=== PATIENT | male | born 1940 | race Caucasian/White ===

== ENCOUNTER 2019-10-24 12:11 | Emergency (ER) | payer MEDICARE ==
[~2019-10-24] VITALS: Ht 177.8 cm; Wt 73.0 kg
[2019-10-24 12:42] VITALS: BP 114/69
[2019-10-24] MEDS ORDERED: AZIT250T83 PO (12:55)
== END 2019-10-24 13:14 | disposition home or self-care (01) ==
LOC: EDBD 12:12 → ER 12:12
DX: J32.9 Chronic sinusitis, unspecified (principal); F17.200 Nicotine dependence, unspecified, uncomplicated; Z79.899 Other long term (current) drug therapy
CPT/HCPCS: 99283

== ENCOUNTER 2020-02-13 14:24 | Emergency (ER) | payer MEDICARE, OTHER ==
[~2020-02-13] VITALS: Ht 177.8 cm; Wt 72.0 kg
[2020-02-13 15:22] LABS: CLARITY,URINE CLEAR (Clear); COLOR,URINE YELLOW (Yellow); GLUCOSE, URINE NEGATIVE (Neg); KETONES,URINE NEGATIVE (Neg); LEUKOCYTE ESTERASE ,URINE NEGATIVE (Neg); NITRITES, URINE NEGATIVE (Neg); OCCULT BLOOD,URINE NEGATIVE (Neg); PH,URINE 5.5 (4.8-8.0); PROTEIN,URINE NEGATIVE (Neg); UROBILINOGEN,URINE 0.2 E.U/dL (0.2-1.0)
[2020-02-13 15:23] LABS: UA COLLECTION TYPE URINAL
[2020-02-13] MEDS ORDERED: normal saline 1000ML IV soln IVB ONE (15:35)
[2020-02-13 16:04] LABS: BASOPHILS % (AUTO) 0.3 % (0-1); EOSINOPHILS % (AUTO) 0.5 % (0-6); HEMATOCRIT 37.6 % (42.0-52.0); HEMOGLOBIN 12.5 g/dl (14.0-17.9); LYMPHOCYTES # (AUTO) 1.5 X10'3 (1.1-4.8); LYMPHOCYTES % (AUTO) 21.1 % (21-51); MEAN CORPUSCULAR HEMOGLOBIN 30.5 PG (27.0-31.0); MEAN CORPUSCULAR HGB CONC 33.4 g/dL (33.0-36.5); MEAN CORPUSCULAR VOLUME 91.5 FL (78-98); MEAN PLATELET VOLUME 7.3 FL (7.4-10.4); MONOCYTES # (AUTO) 0.8 X10'3 (0-0.9); MONOCYTES % (AUTO) 11.8 % (2-12); NEUTROPHILS # (AUTO) 4.6 X10'3 (1.8-7.7); NEUTROPHILS % (AUTO) 66.3 % (42-75); PLATELET COUNT 357 X10'3 (140-440); RED BLOOD COUNT 4.11 X10'6 (4.70-6.10); RED CELL DISTRIBUTION WIDTH 17.1 % (11.5-14.5); WHITE BLOOD COUNT 6.9 X10'3 (4.5-11.0)
[2020-02-13 16:19] LABS: ALANINE AMINOTRANSFERASE 23 U/L (12-78); ALBUMIN 2.5 G/DL (3.4-5.0); ALBUMIN/GLOBULIN RATIO 0.7 (1.1-1.5); ALKALINE PHOSPHATASE 155 IU/L (46-116); ASPARTATE AMINO TRANSFERASE 20 U/L (10-37); BILIRUBIN,TOTAL 0.2 MG/DL (0.1-1.0); BLOOD UREA NITROGEN 18 MG/DL (7-18); CALCIUM 7.9 MG/DL (8.5-10.1); CHLORIDE 112 MMOL/L (99-107); GLUCOSE 78 MG/DL (70-104); LIPASE < 50 U/L (73-393); POTASSIUM 3.4 MMOL/L (3.5-5.1); TOTAL CARBON DIOXIDE 22.8 MMOL/L (24-32); TOTAL PROTEIN 5.9 G/DL (6.4-8.2)
[2020-02-13 16:20] LABS: BUN/CREATININE RATIO 11.8 (5.4-32.0); CREATININE 1.53 MG/DL (0.60-1.10); eGFR 44 ML/MIN
[2020-02-13 16:27] LABS: ANION GAP 11 (8-16); SODIUM 146 MMOL/L (135-145)
[2020-02-13 17:16] VITALS: BP 138/82
== END 2020-02-13 17:13 | disposition home or self-care (01) ==
LOC: ER 14:25
DX: S39.012A Strain of muscle, fascia and tendon of lower back, initial encounter (principal); G89.29 Other chronic pain; X58.XXXA Exposure to other specified factors, initial encounter; Y93.89 Activity, other specified; Y92.89 Other specified places as the place of occurrence of the external cause; Y99.8 Other external cause status
CPT/HCPCS: 36415; 74176; 80053; 81003; 83605; 83690; 85025; 99284; J7030; 99283

== ENCOUNTER 2020-05-21 14:07 | Emergency (ER) | payer MEDICARE, OTHER ==
[~2020-05-21] VITALS: Ht 177.8 cm; Wt 71.4 kg
--- NOTE | 2020-05-21 14:45 | NUR ---
PT IS RESTING QUIETLY ON GURNEY, WAITING TO BE EVALUATED BY PROVIDER, PT HAS BEEN TAKING NORCO 10MG TID, HAS BEEN ON NORCO FOR 10 YEARS FOR CHRONIC PAIN OF BACK AND HERNIAS, STOPPED TAKING NORCO 10DAYS AGO "I NEEDED TO STOP...I FEEL TERRIBLE NOW", PT TALKED WITH PMD "BUT DR BURR COULD NOT HELP ME", HAS APPT WITH PAIN MANAGEMENT PROVIDER NEXT WEEK, PT C/O FEELING DEPRESSED AND LETHARGIC
[2020-05-21] MEDS ORDERED: buprenorphine/naloxone 8MG-2MG SUBlingual film SL STA (14:59)
--- NOTE | 2020-05-21 15:47 | NUR ---
pt is resting quietly on gurney
--- NOTE | 2020-05-21 16:14 | NUR ---
Roxanne MENA AT BEDSIDE.
[2020-05-21] MEDS ORDERED: buprenorphine/naloxone 8mg/2mg SL tablet SL PRN (16:15)
[2020-05-21] MEDS ORDERED: buprenorphine/naloxone 8MG-2MG SUBlingual film SL PRN (16:15)
[2020-05-21 16:55] VITALS: BP 147/90
== END 2020-05-21 16:53 | disposition home or self-care (01) ==
LOC: ER 14:08
DX: F15.93 Other stimulant use, unspecified with withdrawal (principal); R68.83 Chills (without fever); G89.29 Other chronic pain; F32.9 Major depressive disorder, single episode, unspecified
CPT/HCPCS: 99283

== ENCOUNTER 2020-05-31 18:00 | Emergency (ER) | payer MEDICARE ==
[~2020-05-31] VITALS: Ht 177.8 cm; Wt 75.0 kg
[2020-05-31] MEDS ORDERED: buprenorphine/naloxone 8MG-2MG SUBlingual film SL STA (20:18)
[2020-05-31 20:30] VITALS: BP 145/84
== END 2020-05-31 20:32 | disposition home or self-care (01) ==
LOC: ER 18:02
DX: F11.23 Opioid dependence with withdrawal (principal); G89.29 Other chronic pain
CPT/HCPCS: 99283

== ENCOUNTER 2020-09-01 18:53 | Inpatient (IN) | payer MEDICARE ==
[~2020-09-01] VITALS: Ht 177.8 cm; Wt 62.5 kg
[2020-09-01] MEDS ORDERED: normal saline 1000ML IV soln IV ONE (19:30)
[2020-09-01] MEDS ORDERED: morphine 4 MG/ML inj SYRINge IV ONE (19:35)
[2020-09-01] MEDS ORDERED: ondansetron/PF 4mg/2ml inj IV ONE (19:35)
[2020-09-01 19:45] LABS: BASOPHILS # (AUTO) 0.1 X10'3 (0-0.2); BASOPHILS % (AUTO) 0.3 % (0-1); EOSINOPHILS % (AUTO) 0.1 % (0-6); HEMATOCRIT 31.6 % (42.0-52.0); HEMOGLOBIN 10.4 g/dl (14.0-17.9); LYMPHOCYTES # (AUTO) 0.3 X10'3 (1.1-4.8); LYMPHOCYTES % (AUTO) 1.1 % (21-51); MEAN CORPUSCULAR HEMOGLOBIN 29.4 PG (27.0-31.0); MEAN CORPUSCULAR HGB CONC 32.7 g/dL (33.0-36.5); MEAN CORPUSCULAR VOLUME 89.9 FL (78-98); MEAN PLATELET VOLUME 7.9 FL (7.4-10.4); MONOCYTES # (AUTO) 0.8 X10'3 (0-0.9); MONOCYTES % (AUTO) 2.6 % (2-12); NEUTROPHILS # (AUTO) 28.6 X10'3 (1.8-7.7); NEUTROPHILS % (AUTO) 95.9 % (42-75); PLATELET COUNT 354 X10'3 (140-440); RED BLOOD COUNT 3.52 X10'6 (4.70-6.10); RED CELL DISTRIBUTION WIDTH 17.8 % (11.5-14.5)
[2020-09-01 19:53] LABS: WHITE BLOOD COUNT 29.8 X10'3 (4.5-11.0)
[2020-09-01] MEDS ORDERED: piperacillin/tazo 3.375gm/50ml 50 ML IV ONE (19:55)
[2020-09-01] MEDS ORDERED: vancomycin/NS 1 GM ADD-VANTAGE 250 ML IV ONE (19:55)
[2020-09-01 19:59] LABS: ALANINE AMINOTRANSFERASE 56 U/L (12-78); ALBUMIN 1.7 G/DL (3.4-5.0); ALBUMIN/GLOBULIN RATIO 0.5 (1.1-1.5); ALKALINE PHOSPHATASE 87 IU/L (46-116); ANION GAP 21 (8-16); ASPARTATE AMINO TRANSFERASE 54 U/L (10-37); BILIRUBIN,TOTAL 0.4 MG/DL (0.1-1.0); BLOOD UREA NITROGEN 50 MG/DL (7-18); BUN/CREATININE RATIO 12.8 (5.4-32.0); CHLORIDE 108 MMOL/L (99-107); CREATININE 3.91 MG/DL (0.60-1.10); GLUCOSE 122 MG/DL (70-104); POTASSIUM 3.3 MMOL/L (3.5-5.1); SODIUM 142 MMOL/L (135-145); TOTAL PROTEIN 5.4 G/DL (6.4-8.2); eGFR 15 ML/MIN
--- NOTE | 2020-09-01 20:05 | NUR ---
franko: [phone]
[2020-09-01 20:13] LABS: CALCIUM 5.1 MG/DL (8.5-10.1); TOTAL CARBON DIOXIDE 12.7 MMOL/L (24-32)
[2020-09-01 20:41] LABS: CLARITY,URINE CLEAR (Clear); COLOR,URINE YELLOW (Yellow); GLUCOSE, URINE NEGATIVE (Neg); KETONES,URINE NEGATIVE (Neg); LEUKOCYTE ESTERASE ,URINE TRACE (Neg); NITRITES, URINE NEGATIVE (Neg); OCCULT BLOOD,URINE LARGE (Neg); PH,URINE 5.5 (4.8-8.0); PROTEIN,URINE 100 mg/dl (Neg); UROBILINOGEN,URINE 0.2 E.U/dL (0.2-1.0)
[2020-09-01 20:45] LABS: UA COLLECTION TYPE CLN CATCH MIDSTREAM
[2020-09-01] MEDS ORDERED: temazepam 15mg capsule PO PRN (21:00)
[2020-09-01 21:11] LABS: BACTERIA,URINE 3+ /HPF (Neg); CAL OXALATE CRYSTALS FEW /HPF (NEGATIVE); MUCUS STRANDS MODERATE /LPF (Neg); RBC,URINE TNTC /HPF (0-2); SQUAMOUS EPITHELIAL CELL,UR FEW /LPF (FEW)
[2020-09-01 21:12] LABS: AMORPHOUS URATES 1+
[2020-09-01 21:29] LABS: TOTAL CELLS COUNTED 100
[2020-09-01 21:30] LABS: LARGE PLATELETS FEW; PLATELET ESTIMATE NORMAL
[2020-09-01 21:31] LABS: TOXIC GRANULATION 1+; TOXIC VACUOLATION 1+
[2020-09-01 21:33] LABS: ANISOCYTOSIS 1+
[2020-09-01 21:34] LABS: BURR CELLS 1+
--- NOTE | 2020-09-01 22:02 | NUR ---
RAO BRENNER ([facility] [place]) [phone]
[2020-09-01] MEDS ORDERED: ondansetron/PF 4mg/2ml inj IV PRN ×2 (22:15→23:25)
[2020-09-01] MEDS ORDERED: labetalol 20mg/4ml (5mg/ml) syringe IV PRN (22:15)
[2020-09-01] MEDS ORDERED: ringers solution, lacted 1,000 ML IV SCH ×2 (22:15→23:25)
[2020-09-01] MEDS ORDERED: hydrALAZINE 20mg/ml inj. IV PRN (22:15)
[2020-09-01] MEDS ORDERED: morphine 4 MG/ML inj SYRINge IV PRN (22:15)
[2020-09-01] MEDS ORDERED: morphine 2 MG/ML inj. syringe IV PRN (22:15)
[2020-09-01] MEDS ORDERED: fentaNYL/PF 50MCG/1 ML 2ML syringe IV PRN ×2 (22:15)
[2020-09-01] MEDS ORDERED: HYDROcodone/acetaminophen 10/325mg tab PO PRN (22:20)
[2020-09-01] MEDS ORDERED: acetaminophen 325mg tablet PO PRN ×2 (22:20)
[2020-09-01] MEDS ORDERED: magnesium Cl slow-release 64mg tablet PO PRN (22:20)
[2020-09-01] MEDS ORDERED: mag hydrox/Alum hydrox/simeth 30ml oral suspension PO PRN (22:20)
[2020-09-01] MEDS ORDERED: metoclopramide 5 mg/ml inj IV PRN (22:20)
[2020-09-01] MEDS ORDERED: acetaminophen 650mg rectal suppository RC PRN (22:20)
[2020-09-01] MEDS ORDERED: HYDROmorphone inj. 0.5 MG/0.5 ML DISP.SYRIN IV PRN (22:20)
[2020-09-01] MEDS ORDERED: potassium Cl 20 mEq SR tablet PO PRN ×2 (22:20)
[2020-09-01] MEDS ORDERED: magnesium hydroxide 30ml (MOM) UD suspension PO PRN (22:20)
[2020-09-01] MEDS ORDERED: HYDROcodone/acetaminophen 5mg/325mg tablet PO PRN (22:20)
[2020-09-01] MEDS ORDERED: magnesium 4gm in 100ml NS 100 ML IV PRN (22:20)
[2020-09-01] MEDS ORDERED: bisacodyl 10mg suppository rectal RC PRN (22:20)
[2020-09-01] MEDS ORDERED: potassium CL 10mEq/100ml bag 100 ML IV PRN ×2 (22:20)
[2020-09-01 22:26] LABS: PARTIAL THROMBOPLASTIN TIME 36 SECONDS (22-32)
[2020-09-01] MEDS ORDERED: ceFAZolin 1000mg inj ONE (22:36)
[2020-09-01] MEDS ORDERED: PANT-47 PO (22:42)
[2020-09-01] MEDS ORDERED: [UNRECOGNIZED DRUG - OTHER] SL (22:42)
[2020-09-01] MEDS ORDERED: AMLO2.5T5 PO (22:42)
[2020-09-01] MEDS ORDERED: TRAZ-256 PO (22:42)
[2020-09-01] MEDS ORDERED: CALC0.2511 PO (22:42)
[2020-09-01] MEDS ORDERED: CHOL100062 PO (22:42)
[2020-09-01] MEDS ORDERED: NORepinephrine 1 mg/ml inj IV ONE (23:11)
[2020-09-02] VITALS (30 sets, daily range): BP systolic 88–127; BP diastolic 47–61
--- NOTE | 2020-09-02 00:05 | NUR ---
Received from OR via BED , accompanied by Anesthesiologist DR APPLE and report given by Anesthesiolgist. PATIENT SEDATED ON VENT 22CM AT TEETH SEE RT NOTES FOR SETTINGS, V/S WNL, NEUROVASCULAR CHECKS INTACT, PACKING 4X4 AND SUPPORT SHORTS TO SCROTUM AREA CDI, COLOSTOMY W/NO S/S OF COMPLICATIONS, F/C DRAINING DARK YELLOW BRN URINE, ART LINE TO RUE, CL TO RIGHT NECK, CVP 12, 20G PIV TO LUE, 18G PIV TO LUE, RESTRAINTS TO BUE SECURE, INSURANCE EXAMINING CLERK NOTIFIED, CHEST XRY ORDERED AND ABG, OG TUBE TO LWS INTERMENTENT WITH MINIMAL OUTPUT, PATIENT SHOWS NO S/S OF PAIN AT THIS TIME. PATIENT RECOVERED IN 2041
[2020-09-02] MEDS: FENTANYL-0.9 % NACL/PF 100 ML IV PRN (01:17)
[2020-09-02] MEDS: midazolam 100mg in NS 100ml 100 ML IV SCH (01:17)
[2020-09-02] MEDS: NORepinephrine 8mg/ 250ml NS 250 ML IV PRN ×7 (01:18→21:55)
--- NOTE | 2020-09-02 01:25 | NUR ---
PATIENT SEDATED ON VENT 22CM AT TEETH SEE RT NOTES FOR SETTINGS, V/S WNL, NEUROVASCULAR CHECKS INTACT, PACKING 4X4 AND SUPPORT SHORTS TO SCROTUM AREA CDI, COLOSTOMY W/NO S/S OF COMPLICATIONS, F/C DRAINING DARK YELLOW BRN URINE, ART LINE TO RUE, CL TO RIGHT NECK, CVP 12, 20G PIV TO LUE, 18G PIV TO LUE, RESTRAINTS TO BUE SECURE, , CHEST XRY DONE AND DR WALKER HAS REVIEWED RESULTS W/ NO NEW ORDERS AND ABG COMPLETED, OG TUBE TO LWS INTERMENTENT WITH MINIMAL OUTPUT, PATIENT SHOWS NO S/S OF PAIN AT THIS TIME. PATIENT RECOVERED IN 2041, BELONGINGS WITH PATIENT IN ROOM, FENT AND VERSED GTT FOR SEDATION AT STANDARD SETTINGS AND LEVOPHED AT 0.3MCG/KG/MIN. PATIENT CONNECTED TO MONITORS AND REPORT GIVEN TO TRUCK OPERATOR WHO HAS TAKEN OVER PATIENT CARE.
[2020-09-02 01:30] LABS: ABG BASE EXCESS -17.4 mmol/L (-2.0-2.0); ABG HCO3 11.8 mmol/L (22.0-26.0); ABG OXYGEN SATURATION 95.2 % (94-97); ABG PCO2 (T) 40.9 mmHg (35.0-48.0); ABG PO2 (T) 295.6 mmHg (75.0-100.0); FMetHb 0.1 % (0.0-1.5); FO2Hb 95.1 % (94-97); PATIENT TEMPERATURE 36.3; PEEP 5 cm H2O; RESPIRATORY RATE 12 b/min; TIDAL VOLUME 500 mL; TOTAL HEMOGLOBIN 9.3 G/dl (14.0-18.0)
[2020-09-02 02:38] LABS: BASOPHILS # (AUTO) 0.2 X10'3 (0-0.2); BASOPHILS % (AUTO) 0.6 % (0-1); EOSINOPHILS % (AUTO) 0.1 % (0-6); HEMATOCRIT 27.2 % (42.0-52.0); HEMOGLOBIN 8.8 g/dl (14.0-17.9); LYMPHOCYTES # (AUTO) 0.3 X10'3 (1.1-4.8); LYMPHOCYTES % (AUTO) 0.9 % (21-51); MEAN CORPUSCULAR HEMOGLOBIN 29.4 PG (27.0-31.0); MEAN CORPUSCULAR HGB CONC 32.4 g/dL (33.0-36.5); MEAN CORPUSCULAR VOLUME 90.8 FL (78-98); MEAN PLATELET VOLUME 7.7 FL (7.4-10.4); MONOCYTES # (AUTO) 1.5 X10'3 (0-0.9); MONOCYTES % (AUTO) 5.4 % (2-12); NEUTROPHILS # (AUTO) 25.6 X10'3 (1.8-7.7); PLATELET COUNT 301 X10'3 (140-440); RED BLOOD COUNT 2.99 X10'6 (4.70-6.10)
[2020-09-02 02:39] LABS: WHITE BLOOD COUNT 27.6 X10'3 (4.5-11.0)
[2020-09-02 02:44] LABS: ALANINE AMINOTRANSFERASE 53 U/L (12-78); ALBUMIN 1.7 G/DL (3.4-5.0); ALBUMIN/GLOBULIN RATIO 0.6 (1.1-1.5); ALKALINE PHOSPHATASE 68 IU/L (46-116); ANION GAP 18 (8-16); ASPARTATE AMINO TRANSFERASE 61 U/L (10-37); BILIRUBIN,TOTAL 0.5 MG/DL (0.1-1.0); BLOOD UREA NITROGEN 48 MG/DL (7-18); BUN/CREATININE RATIO 14.1 (5.4-32.0); CHLORIDE 115 MMOL/L (99-107); GLUCOSE 123 MG/DL (70-104); POTASSIUM 3.2 MMOL/L (3.5-5.1); SODIUM 148 MMOL/L (135-145); TOTAL PROTEIN 4.7 G/DL (6.4-8.2); eGFR 18 ML/MIN
[2020-09-02 02:48] LABS: CALCIUM 5.5 MG/DL (8.5-10.1); MAGNESIUM 0.5 MG/DL (1.5-2.4); TOTAL CARBON DIOXIDE 14.6 MMOL/L (24-32)
[2020-09-02] MEDS ORDERED: calcium chloride 100 MG/1 ML inj IV ONE ×4 (03:00→10:35)
[2020-09-02] MEDS: magnesium 2GM in 50ml NS 50 ML IV PRN ×2 (03:21→10:41)
[2020-09-02] MEDS ORDERED: potassium Cl 20 mEq/100mL bag IV ONE (03:40)
[2020-09-02 05:15] LABS: ABG HCO3 12.3 mmol/L (22.0-26.0); ABG OXYGEN SATURATION 93.4 % (94-97); ABG PCO2 (T) 37.8 mmHg (35.0-48.0); ABG PO2 (T) 120.3 mmHg (75.0-100.0); FCOHb 0.1 % (0.0-3.9); FMetHb 0.1 % (0.0-1.5); FO2Hb 93.2 % (94-97); PATIENT TEMPERATURE 36.5; PEEP 5 cm H2O; RESPIRATORY RATE 16 b/min; TIDAL VOLUME 500 mL; TOTAL HEMOGLOBIN 9.1 G/dl (14.0-18.0)
[2020-09-02] MEDS: normal saline 1000ml 1,000 ML IV SCH ×3 (06:52→18:20)
[2020-09-02] MEDS ORDERED: enoxaparin 30mg/0.3ml syringe SUBCUT SCH (08:00)
[2020-09-02] MEDS: K and/or MAG REPLACEMENT MC SCH ×2 (08:00→20:00)
[2020-09-02 08:42] LABS: ANISOCYTOSIS 1+; BURR CELLS 2+; PLATELET ESTIMATE NORMAL; TOTAL CELLS COUNTED 100; TOXIC GRANULATION 2+; TOXIC VACUOLATION 1+
[2020-09-02] MEDS ORDERED: vancomycin/NS 1 GM ADD-VANTAGE 250 ML IV PRN (08:50)
[2020-09-02] MEDS: piperacillin/tazo 3.375gm/50ml 50 ML IV SCH ×2 (09:10→20:24)
[2020-09-02] MEDS: albumin (human) 25% 100 ML IV solution IV SCH ×2 (11:05→17:46)
[2020-09-02] MEDS: clindamycin 600mg/D5W 50ml 50 ML IV SCH ×2 (11:34→17:03)
[2020-09-02] MEDS: hydrocortisone sod succ/PF 100mg/2ml inj. IV SCH ×2 (11:34→17:03)
[2020-09-02 11:37] LABS: PHOSPHORUS 5.5 MG/DL (2.3-4.5)
[2020-09-02] MEDS ORDERED: BUPR1TAB45 SL (11:45)
--- NOTE | 2020-09-02 11:52 | NUR ---
Retrieved from pts EMR: Pt is a 79-year-old male who presented with testicular pain. Pt apparently had right groin cellulitis w/ necrotizing fasciitis. Pt went to surgery with Dr. Lux on 09/02/20 where perianal and perineal tissue was debrided and pt had diverting ileostomy placed. Pt has history of GERD, anxiety and cigar smoking. Pt labs show high WBC at 27.6, low HGB at 8.8, low HCT at 27.2, high procalcitonin 1.62, very low albumin 1.7, and very reduced kidney function with EGFR of 18. Wound care consulted for: New stoma Wound care bedside to see pt. Pt is intubated and sedated at this time. On examination ileostomy appears to LLQ. There is some xeroform around the side, unsure of the purpose of this application. The ostomy itself is very edematous and is pink in color. There is serosanguinous drainage at this time. Addendum: 09/02/20 at 1153 by Ingrid Mitchell RN Amended: Links added.
--- NOTE | 2020-09-02 12:28 | NUR ---
Initial: Pt intubated s/p OR for necrotizing perineal I&D and diverting Ileostomy per EMR. NPO at this time. Ca 5.5 and Mg 0.5 receiving replacements w/ 200cc 25% ALB to start Q8 per director of group sales. Will monitor for nutrition support needs post-op; EN recs below in case prolonged intubation; using IBW pending scaled wt this admit. Will continue to monitor. Rec: 1. IF TF; Vital High Protein at 85ml/hr goal 2. IF TF; water flush 200ml Q4; Yao BID for wound healing needs 3. IF TF; PALB Q M/; daily wts 4. bowel care per rx; monitor for opioid antagonist needs post-op 5. daily wts Addendum: 09/02/20 at [address] Amended: Links added.
[2020-09-02] MEDS: Potassium Cl inj 40 MEQ in sodium chloride 0.45% 1,000 ML IV SCH ×2 (12:58→20:24)
[2020-09-02] MEDS ORDERED: sodium bicarbonate (8.4%) 1 mEq/ml syringe ONE (13:24)
[2020-09-02 13:25] LABS: ABG BASE EXCESS -19.2 mmol/L (-2.0-2.0); ABG HCO3 9.3 mmol/L (22.0-26.0); ABG OXYGEN SATURATION 92.4 % (94-97); ABG PCO2 (T) 32.4 mmHg (35.0-48.0); ABG PO2 (T) 97.3 mmHg (75.0-100.0); FCOHb 0.1 % (0.0-3.9); FMetHb 0.1 % (0.0-1.5); FO2Hb 92.2 % (94-97); PEEP 5 cm H2O; RESPIRATORY RATE 20 b/min; TIDAL VOLUME 500 mL; TOTAL HEMOGLOBIN 8.5 G/dl (14.0-18.0)
[2020-09-02 13:28] LABS: BASOPHILS # (AUTO) 0.1 X10'3 (0-0.2); BASOPHILS % (AUTO) 0.2 % (0-1); EOSINOPHILS % (AUTO) 0 % (0-6); HEMATOCRIT 25.8 % (42.0-52.0); HEMOGLOBIN 8.1 g/dl (14.0-17.9); LYMPHOCYTES # (AUTO) 0.2 X10'3 (1.1-4.8); LYMPHOCYTES % (AUTO) 0.9 % (21-51); MEAN CORPUSCULAR HEMOGLOBIN 28.8 PG (27.0-31.0); MEAN CORPUSCULAR HGB CONC 31.4 g/dL (33.0-36.5); MEAN CORPUSCULAR VOLUME 91.8 FL (78-98); MEAN PLATELET VOLUME 7.6 FL (7.4-10.4); MONOCYTES # (AUTO) 0.9 X10'3 (0-0.9); MONOCYTES % (AUTO) 3.4 % (2-12); NEUTROPHILS # (AUTO) 24.8 X10'3 (1.8-7.7); NEUTROPHILS % (AUTO) 95.5 % (42-75); PLATELET COUNT 279 X10'3 (140-440); RED BLOOD COUNT 2.81 X10'6 (4.70-6.10); RED CELL DISTRIBUTION WIDTH 18.8 % (11.5-14.5)
[2020-09-02 13:29] LABS: PARTIAL THROMBOPLASTIN TIME 59 SECONDS (22-32)
[2020-09-02 13:31] LABS: ALANINE AMINOTRANSFERASE 49 U/L (12-78); ALBUMIN 2.5 G/DL (3.4-5.0); ALKALINE PHOSPHATASE 68 IU/L (46-116); ASPARTATE AMINO TRANSFERASE 47 U/L (10-37); BILIRUBIN,TOTAL 0.6 MG/DL (0.1-1.0); BLOOD UREA NITROGEN 54 MG/DL (7-18); BUN/CREATININE RATIO 13.6 (5.4-32.0); CALCIUM 7.3 MG/DL (8.5-10.1); CREATININE 3.97 MG/DL (0.60-1.10); GLUCOSE 125 MG/DL (70-104); MAGNESIUM 1.3 MG/DL (1.5-2.4); TOTAL PROTEIN 5.1 G/DL (6.4-8.2); eGFR 15 ML/MIN
[2020-09-02 13:36] LABS: ANION GAP 20 (8-16); CHLORIDE 116 MMOL/L (99-107); POTASSIUM 3.8 MMOL/L (3.5-5.1); SODIUM 148 MMOL/L (135-145)
[2020-09-02 13:43] LABS: TOTAL CARBON DIOXIDE 11.9 MMOL/L (24-32)
[2020-09-02] MEDS ORDERED: sodium bicarbonate (8.4%) inj. 1 MEQ/ML ML ONE ×3 (14:46→15:09)
[2020-09-02] MEDS ORDERED: rocuronium 10mg/ml inj IV ONE (14:46)
[2020-09-02 14:55] LABS: ABG BASE EXCESS -15.6 mmol/L (-2.0-2.0); ABG HCO3 11.8 mmol/L (22.0-26.0); ABG OXYGEN SATURATION 95.1 % (94-97); ABG PCO2 (T) 33.3 mmHg (35.0-48.0); FMetHb 0.1 % (0.0-1.5); PATIENT TEMPERATURE 36.5; TOTAL HEMOGLOBIN 8.2 G/dl (14.0-18.0)
--- NOTE | 2020-09-02 16:36 | NUR ---
I have reviewed and agree with all medications administered and interventions performed by [facility] Student MARK GODWIN Addendum: 09/02/20 at 1637 by Odette Santana RT Amended: Links added.
--- NOTE | 2020-09-02 16:42 | NUR ---
Called to report run of VTach to Dr Fontanez. states he will call me right back
[2020-09-02] MEDS ORDERED: sodium chloride 0.45% 1,000 ML IV ONE (16:50)
[2020-09-02] MEDS: potassium Cl 20 mEq/100mL bag IV SCH ×2 (17:03→17:50)
[2020-09-02] MEDS: lactobacillus rhamnosus 10,000 MMU CELLS/CAPSULE PO SCH (20:24)
[2020-09-02 21:55] LABS: BASOPHILS % (AUTO) 0.1 % (0-1); EOSINOPHILS % (AUTO) 0.1 % (0-6); HEMATOCRIT 22.2 % (42.0-52.0); HEMOGLOBIN 7.3 g/dl (14.0-17.9); LYMPHOCYTES # (AUTO) 0.5 X10'3 (1.1-4.8); LYMPHOCYTES % (AUTO) 2.1 % (21-51); MEAN CORPUSCULAR HGB CONC 32.7 g/dL (33.0-36.5); MEAN CORPUSCULAR VOLUME 91.6 FL (78-98); MEAN PLATELET VOLUME 7.6 FL (7.4-10.4); MONOCYTES # (AUTO) 0.6 X10'3 (0-0.9); MONOCYTES % (AUTO) 2.5 % (2-12); NEUTROPHILS % (AUTO) 95.2 % (42-75); PLATELET COUNT 238 X10'3 (140-440); RED BLOOD COUNT 2.43 X10'6 (4.70-6.10); RED CELL DISTRIBUTION WIDTH 18.5 % (11.5-14.5); WHITE BLOOD COUNT 22.1 X10'3 (4.5-11.0)
[2020-09-02 22:09] LABS: ALANINE AMINOTRANSFERASE 45 U/L (12-78); ALBUMIN 2.8 G/DL (3.4-5.0); ALBUMIN/GLOBULIN RATIO 1.3 (1.1-1.5); ALKALINE PHOSPHATASE 75 IU/L (46-116); ANION GAP 23 (8-16); ASPARTATE AMINO TRANSFERASE 47 U/L (10-37); BLOOD UREA NITROGEN 55 MG/DL (7-18); BUN/CREATININE RATIO 13.3 (5.4-32.0); CALCIUM 6.1 MG/DL (8.5-10.1); CHLORIDE 115 MMOL/L (99-107); CREATININE 4.12 MG/DL (0.60-1.10); GLUCOSE 114 MG/DL (70-104); POTASSIUM 4.3 MMOL/L (3.5-5.1); SODIUM 149 MMOL/L (135-145); eGFR 14 ML/MIN
[2020-09-02 22:11] LABS: TOTAL CARBON DIOXIDE 11.3 MMOL/L (24-32)
[2020-09-02 22:43] LABS: MAGNESIUM 1.2 MG/DL (1.5-2.4)
[2020-09-02 22:51] LABS: ABG BASE EXCESS -17.4 mmol/L (-2.0-2.0); ABG HCO3 8.6 mmol/L (22.0-26.0); ABG OXYGEN SATURATION 94.1 % (94-97); ABG PCO2 (T) 20.6 mmHg (35.0-48.0); ABG PO2 (T) 124.2 mmHg (75.0-100.0); FCOHb 0.1 % (0.0-3.9); FMetHb 0.1 % (0.0-1.5); FO2Hb 93.9 % (94-97); PATIENT TEMPERATURE 36.5; PEEP 5 cm H2O; RESPIRATORY RATE 20 b/min; TIDAL VOLUME 650 mL; TOTAL HEMOGLOBIN 7.5 G/dl (14.0-18.0)
[2020-09-03] VITALS (29 sets, daily range): BP systolic 13–131; BP diastolic 46–62
[2020-09-03] MEDS: clindamycin 600mg/D5W 50ml 50 ML IV SCH ×2 (00:24→07:18)
[2020-09-03] MEDS: hydrocortisone sod succ/PF 100mg/2ml inj. IV SCH ×3 (00:24→18:15)
[2020-09-03] MEDS: albumin (human) 25% 100 ML IV solution IV SCH ×2 (00:25→07:55)
[2020-09-03] MEDS: VANCOMYCIN LEVEL IV SCH (03:00)
[2020-09-03 03:14] LABS: BASOPHILS % (AUTO) 0.1 % (0-1); EOSINOPHILS % (AUTO) 0.1 % (0-6); LYMPHOCYTES # (AUTO) 0.3 X10'3 (1.1-4.8); LYMPHOCYTES % (AUTO) 1.4 % (21-51); MEAN CORPUSCULAR HEMOGLOBIN 29.2 PG (27.0-31.0); MEAN CORPUSCULAR HGB CONC 32.1 g/dL (33.0-36.5); MEAN CORPUSCULAR VOLUME 90.9 FL (78-98); MEAN PLATELET VOLUME 7.6 FL (7.4-10.4); MONOCYTES # (AUTO) 0.5 X10'3 (0-0.9); MONOCYTES % (AUTO) 2.5 % (2-12); NEUTROPHILS % (AUTO) 95.9 % (42-75); PLATELET COUNT 204 X10'3 (140-440); RED BLOOD COUNT 2.34 X10'6 (4.70-6.10); RED CELL DISTRIBUTION WIDTH 18.1 % (11.5-14.5); WHITE BLOOD COUNT 19.8 X10'3 (4.5-11.0)
[2020-09-03 03:25] LABS: HEMATOCRIT 21.3 % (42.0-52.0); HEMOGLOBIN 6.8 g/dl (14.0-17.9)
[2020-09-03 03:27] LABS: ALANINE AMINOTRANSFERASE 41 U/L (12-78); ALBUMIN 3.2 G/DL (3.4-5.0); ALBUMIN/GLOBULIN RATIO 1.5 (1.1-1.5); ALKALINE PHOSPHATASE 73 IU/L (46-116); ANION GAP 24 (8-16); ASPARTATE AMINO TRANSFERASE 41 U/L (10-37); BILIRUBIN,TOTAL 0.9 MG/DL (0.1-1.0); BLOOD UREA NITROGEN 57 MG/DL (7-18); BUN/CREATININE RATIO 12.9 (5.4-32.0); CHLORIDE 111 MMOL/L (99-107); CREATININE 4.42 MG/DL (0.60-1.10); GLUCOSE 125 MG/DL (70-104); PHOSPHORUS 6.6 MG/DL (2.3-4.5); POTASSIUM 4.2 MMOL/L (3.5-5.1); SODIUM 145 MMOL/L (135-145); TOTAL PROTEIN 5.3 G/DL (6.4-8.2); VANCOMYCIN,RANDOM 6.3 UG/ML; eGFR 13 ML/MIN
[2020-09-03 03:34] LABS: CALCIUM 5.6 MG/DL (8.5-10.1); TOTAL CARBON DIOXIDE 10.1 MMOL/L (24-32)
[2020-09-03] MEDS ORDERED: calcium chloride inj. 1,000 MG in normal saline 100ml IV soln 100 ML IV ONE (03:45)
[2020-09-03 03:56] LABS: ABG BASE EXCESS -18.5 mmol/L (-2.0-2.0); ABG HCO3 7.9 mmol/L (22.0-26.0); ABG OXYGEN SATURATION 94.1 % (94-97); ABG PCO2 (T) 20.4 mmHg (35.0-48.0); ABG PO2 (T) 124.2 mmHg (75.0-100.0); FCOHb 0.3 % (0.0-3.9); FO2Hb 93.8 % (94-97); PATIENT TEMPERATURE 36.5; PEEP 5 cm H2O; RESPIRATORY RATE 20 b/min; TIDAL VOLUME 650 mL; TOTAL HEMOGLOBIN 6.8 G/dl (14.0-18.0)
[2020-09-03] MEDS: normal saline 1000ml 1,000 ML IV SCH (04:20)
[2020-09-03] MEDS: FENTANYL-0.9 % NACL/PF 100 ML IV PRN ×2 (04:58→23:39)
[2020-09-03] MEDS: midazolam 100mg in NS 100ml 100 ML IV SCH (04:59)
[2020-09-03] MEDS: Potassium Cl inj 40 MEQ in sodium chloride 0.45% 1,000 ML IV SCH (07:18)
[2020-09-03] MEDS: pantoprazole 40 MG vial IV SCH (07:18)
[2020-09-03] MEDS: lactobacillus rhamnosus 10,000 MMU CELLS/CAPSULE PO SCH ×2 (08:00→20:11)
[2020-09-03] MEDS: K and/or MAG REPLACEMENT MC SCH ×2 (08:00→19:49)
[2020-09-03] MEDS ORDERED: vancomycin/NS 1 GM ADD-VANTAGE 250 ML IV ONE (08:48)
[2020-09-03] MEDS: piperacillin/tazo 3.375gm/50ml 50 ML IV SCH ×2 (08:53→20:11)
[2020-09-03 09:04] LABS: BASOPHILS % (AUTO) 0.1 % (0-1); EOSINOPHILS % (AUTO) 0 % (0-6); HEMOGLOBIN 7.2 g/dl (14.0-17.9); LYMPHOCYTES # (AUTO) 0.4 X10'3 (1.1-4.8); LYMPHOCYTES % (AUTO) 2.6 % (21-51); MEAN CORPUSCULAR HEMOGLOBIN 30.6 PG (27.0-31.0); MEAN CORPUSCULAR HGB CONC 33.1 g/dL (33.0-36.5); MEAN CORPUSCULAR VOLUME 92.3 FL (78-98); MEAN PLATELET VOLUME 7.4 FL (7.4-10.4); MONOCYTES # (AUTO) 0.3 X10'3 (0-0.9); MONOCYTES % (AUTO) 1.9 % (2-12); NEUTROPHILS # (AUTO) 16.2 X10'3 (1.8-7.7); NEUTROPHILS % (AUTO) 95.4 % (42-75); PLATELET COUNT 183 X10'3 (140-440); RED BLOOD COUNT 2.37 X10'6 (4.70-6.10); RED CELL DISTRIBUTION WIDTH 18.1 % (11.5-14.5)
[2020-09-03 09:06] LABS: HEMATOCRIT 21.9 % (42.0-52.0)
[2020-09-03 09:14] LABS: ALBUMIN 3.5 G/DL (3.4-5.0); ANION GAP 26 (8-16); BLOOD UREA NITROGEN 59 MG/DL (7-18); BUN/CREATININE RATIO 12.8 (5.4-32.0); CHLORIDE 114 MMOL/L (99-107); CREATININE 4.61 MG/DL (0.60-1.10); GLUCOSE 130 MG/DL (70-104); PHOSPHORUS 6.6 MG/DL (2.3-4.5); POTASSIUM 4.4 MMOL/L (3.5-5.1); SODIUM 149 MMOL/L (135-145); eGFR 12 ML/MIN
[2020-09-03 09:25] LABS: CALCIUM 5.8 MG/DL (8.5-10.1); TOTAL CARBON DIOXIDE 8.6 MMOL/L (24-32)
[2020-09-03 10:12] LABS: TOTAL CELLS COUNTED 100
[2020-09-03 10:17] LABS: ANISOCYTOSIS 2+; BURR CELLS 2+; PLATELET ESTIMATE NORMAL; TOXIC GRANULATION 2+
--- NOTE | 2020-09-03 11:08 | NUR ---
All critical labs reported to provider in accordance with policy
[2020-09-03] MEDS ORDERED: heparin 1,000 units/ml 10ml inj HE ONE ×4 (11:50→16:05)
[2020-09-03] MEDS ORDERED: normal saline 1000ml 100 ML IV PRN (12:10)
[2020-09-03] MEDS ORDERED: epoetin 20,000 units/ml inj IV ONE (12:10)
[2020-09-03] MEDS: sodium bicarbonate (8.4%) inj. 100 MEQ in dextrose 5%-water 1,000 ML IV SCH (12:24)
[2020-09-03] MEDS ORDERED: acetaminophen 325mg/10.15ml oral unit dose solution OGT PRN ×2 (12:52→12:53)
[2020-09-03] MEDS ORDERED: mag hydrox/Alum hydrox/simeth 30ml oral suspension OGT PRN (13:05)
[2020-09-03] MEDS ORDERED: magnesium hydroxide 30ml (MOM) UD suspension OGT PRN (13:06)
[2020-09-03] MEDS ORDERED: temazepam 15mg capsule OGT PRN (13:07)
[2020-09-03] MEDS ORDERED: POTASSIUM BICARB 20meq eff tab 20 MEQ TABLET.EFF OGT PRN ×2 (13:08)
--- NOTE | 2020-09-03 14:42 | NUR ---
Tube feeding consult. Start at trickle rate. Pt intubated s/p OR for necrotizing perineal I&D and diverting ileostomy, 175 ml output so far. Rec: 1. Continuous tube feeding using Vital High Protein at 85ml/hr goal will provide 2040 ml volume, 2040 calories, 179 g protein, 1714 ml water. 2. Water flush per d/t HD. If able to provide water flushes recommend Yao BID for wound healing needs 3. PALB Q ; daily wts 4. bowel care per rx Addendum: 09/03/20 at [address] Amended: Links added.
[2020-09-03 15:50] LABS: HEMATOCRIT 24.4 % (42.0-52.0); MEAN CORPUSCULAR HEMOGLOBIN 29.9 PG (27.0-31.0); MEAN CORPUSCULAR HGB CONC 32.8 g/dL (33.0-36.5); MEAN PLATELET VOLUME 7.8 FL (7.4-10.4); PLATELET COUNT 170 X10'3 (140-440); RED BLOOD COUNT 2.68 X10'6 (4.70-6.10); RED CELL DISTRIBUTION WIDTH 16.8 % (11.5-14.5); WHITE BLOOD COUNT 14.9 X10'3 (4.5-11.0)
--- NOTE | 2020-09-03 16:00 | NUR ---
Tube feed started per orders
[2020-09-03 16:04] LABS: ALANINE AMINOTRANSFERASE 37 U/L (12-78); ALBUMIN 2.9 G/DL (3.4-5.0); ALBUMIN/GLOBULIN RATIO 1.5 (1.1-1.5); ALKALINE PHOSPHATASE 64 IU/L (46-116); ANION GAP 23 (8-16); ASPARTATE AMINO TRANSFERASE 31 U/L (10-37); BLOOD UREA NITROGEN 62 MG/DL (7-18); BUN/CREATININE RATIO 12.8 (5.4-32.0); CHLORIDE 114 MMOL/L (99-107); CREATININE 4.83 MG/DL (0.60-1.10); GLUCOSE 136 MG/DL (70-104); POTASSIUM 4.3 MMOL/L (3.5-5.1); SODIUM 148 MMOL/L (135-145); TOTAL PROTEIN 4.9 G/DL (6.4-8.2); eGFR 12 ML/MIN
[2020-09-03 16:08] LABS: CALCIUM 5.8 MG/DL (8.5-10.1); TOTAL CARBON DIOXIDE 11.1 MMOL/L (24-32)
[2020-09-03] MEDS: NORepinephrine 8mg/ 250ml NS 250 ML IV PRN (18:01)
--- NOTE | 2020-09-03 19:25 | NUR ---
RN Note -Dr. Willett at bedside examining pt. Orders received for wound dressing change
[2020-09-04] VITALS (24 sets, daily range): BP systolic 101–139; BP diastolic 43–64
[2020-09-04] MEDS: sodium bicarbonate (8.4%) inj. 100 MEQ in dextrose 5%-water 1,000 ML IV SCH ×2 (00:28→08:45)
[2020-09-04] MEDS: hydrocortisone sod succ/PF 100mg/2ml inj. IV SCH ×4 (00:28→23:35)
[2020-09-04] MEDS: VANCOMYCIN LEVEL IV SCH (03:00)
[2020-09-04 03:23] LABS: BASOPHILS % (AUTO) 0.3 % (0-1); EOSINOPHILS % (AUTO) 0 % (0-6); HEMATOCRIT 23.9 % (42.0-52.0); HEMOGLOBIN 8.2 g/dl (14.0-17.9); LYMPHOCYTES # (AUTO) 0.3 X10'3 (1.1-4.8); MEAN CORPUSCULAR HEMOGLOBIN 30.1 PG (27.0-31.0); MEAN CORPUSCULAR HGB CONC 34.1 g/dL (33.0-36.5); MEAN CORPUSCULAR VOLUME 88.1 FL (78-98); MONOCYTES # (AUTO) 0.3 X10'3 (0-0.9); MONOCYTES % (AUTO) 2.2 % (2-12); NEUTROPHILS # (AUTO) 14.4 X10'3 (1.8-7.7); NEUTROPHILS % (AUTO) 95.5 % (42-75); PLATELET COUNT 138 X10'3 (140-440); RED BLOOD COUNT 2.71 X10'6 (4.70-6.10); WHITE BLOOD COUNT 15.1 X10'3 (4.5-11.0)
[2020-09-04] MEDS ORDERED: dextrose ORAL solution 15 GM/59 ML bottle PO PRN ×2 (03:45)
[2020-09-04] MEDS ORDERED: dextrose 50%-water 50ml dispensing syringe IV PRN (03:45)
[2020-09-04] MEDS ORDERED: glucagon, human recombinant 1mg kit SUBCUT PRN (03:45)
[2020-09-04] MEDS ORDERED: MESSAGE TO PHARMACY PO ONE (03:45)
[2020-09-04 03:46] LABS: ALANINE AMINOTRANSFERASE 42 U/L (12-78); ALBUMIN 2.5 G/DL (3.4-5.0); ALBUMIN/GLOBULIN RATIO 1.2 (1.1-1.5); ALKALINE PHOSPHATASE 99 IU/L (46-116); ANION GAP 17 (8-16); ASPARTATE AMINO TRANSFERASE 34 U/L (10-37); BILIRUBIN,TOTAL 1.3 MG/DL (0.1-1.0); BLOOD UREA NITROGEN 34 MG/DL (7-18); BUN/CREATININE RATIO 10.6 (5.4-32.0); CALCIUM 6.5 MG/DL (8.5-10.1); CHLORIDE 107 MMOL/L (99-107); CREATININE 3.21 MG/DL (0.60-1.10); GLUCOSE 196 MG/DL (70-104); MAGNESIUM 1.8 MG/DL (1.5-2.4); POTASSIUM 3.3 MMOL/L (3.5-5.1); SODIUM 144 MMOL/L (135-145); TOTAL PROTEIN 4.6 G/DL (6.4-8.2); VANCOMYCIN,RANDOM 13.8 UG/ML; eGFR 19 ML/MIN
[2020-09-04 04:36] LABS: ABG BASE EXCESS -2.7 mmol/L (-2.0-2.0); ABG HCO3 18.7 mmol/L (22.0-26.0); ABG OXYGEN SATURATION 93.5 % (94-97); ABG PCO2 (T) 21.4 mmHg (35.0-48.0); ABG PO2 (T) 76.8 mmHg (75.0-100.0); FCOHb 0.1 % (0.0-3.9); FMetHb 0.1 % (0.0-1.5); FO2Hb 93.3 % (94-97); PATIENT TEMPERATURE 36.9; PEEP 5 cm H2O; RESPIRATORY RATE 20 b/min; TIDAL VOLUME 650 mL; TOTAL HEMOGLOBIN 8.2 G/dl (14.0-18.0)
[2020-09-04] MEDS: insulin regular, human U-100 3ml vial - multi-dose SQ SCH ×4 (05:23→21:40)
[2020-09-04] MEDS: pantoprazole 40 MG vial IV SCH (07:19)
[2020-09-04] MEDS: lactobacillus rhamnosus 10,000 MMU CELLS/CAPSULE PO SCH ×2 (07:19→20:39)
[2020-09-04] MEDS: piperacillin/tazo 3.375gm/50ml 50 ML IV SCH ×2 (07:19→20:40)
[2020-09-04] MEDS: K and/or MAG REPLACEMENT MC SCH ×2 (07:36→20:00)
[2020-09-04] MEDS ORDERED: heparin 1,000unit/ml 10ml vial 10 ML IV ONE (10:45)
[2020-09-04] MEDS ORDERED: epoetin 20,000 units/ml inj IV ONE (10:45)
[2020-09-04] MEDS ORDERED: heparin 1,000 units/ml 10ml inj HE ONE ×2 (10:45)
[2020-09-04] MEDS ORDERED: normal saline 1000ml 250 ML IV PRN (10:45)
[2020-09-04] MEDS: dexmedetomidine/D5W 100mL 100 ML IV SCH ×2 (15:14→23:37)
[2020-09-04 16:27] LABS: ALANINE AMINOTRANSFERASE 45 U/L (12-78); ALBUMIN 2.5 G/DL (3.4-5.0); ALKALINE PHOSPHATASE 121 IU/L (46-116); ANION GAP 8 (8-16); ASPARTATE AMINO TRANSFERASE 34 U/L (10-37); BLOOD UREA NITROGEN 38 MG/DL (7-18); BUN/CREATININE RATIO 12.3 (5.4-32.0); CALCIUM 6.3 MG/DL (8.5-10.1); CHLORIDE 106 MMOL/L (99-107); CREATININE 3.09 MG/DL (0.60-1.10); GLUCOSE 204 MG/DL (70-104); POTASSIUM 3.5 MMOL/L (3.5-5.1); SODIUM 140 MMOL/L (135-145); TOTAL CARBON DIOXIDE 25.6 MMOL/L (24-32); TOTAL PROTEIN 4.9 G/DL (6.4-8.2); eGFR 20 ML/MIN
[2020-09-04 17:11] LABS: HIV ANTIBODY 1&2 RAPID NON-REACTIVE (Neg)
[2020-09-04] MEDS: FENTANYL-0.9 % NACL/PF 100 ML IV PRN (17:36)
[2020-09-04] MEDS: famotidine/PF 10 mg/ml inj IV SCH (20:39)
[2020-09-04] MEDS: insulin glargine (Lantus) pen - multi-dose SQ SCH (21:42)
[2020-09-05] VITALS (25 sets, daily range): BP systolic 98–160; BP diastolic 45–75
[2020-09-05] MEDS: FENTANYL-0.9 % NACL/PF 100 ML IV PRN ×4 (01:38→22:45)
[2020-09-05 02:38] LABS: BASOPHILS % (AUTO) 0 % (0-1); EOSINOPHILS % (AUTO) 0 % (0-6); HEMATOCRIT 23.6 % (42.0-52.0); HEMOGLOBIN 8.2 g/dl (14.0-17.9); LYMPHOCYTES # (AUTO) 0.3 X10'3 (1.1-4.8); LYMPHOCYTES % (AUTO) 2.7 % (21-51); MEAN CORPUSCULAR HEMOGLOBIN 30.2 PG (27.0-31.0); MEAN CORPUSCULAR HGB CONC 34.5 g/dL (33.0-36.5); MEAN CORPUSCULAR VOLUME 87.7 FL (78-98); MEAN PLATELET VOLUME 8.2 FL (7.4-10.4); MONOCYTES # (AUTO) 0.3 X10'3 (0-0.9); MONOCYTES % (AUTO) 2.3 % (2-12); NEUTROPHILS # (AUTO) 11.1 X10'3 (1.8-7.7); PLATELET COUNT 107 X10'3 (140-440); WHITE BLOOD COUNT 11.7 X10'3 (4.5-11.0)
[2020-09-05] MEDS: insulin regular, human U-100 3ml vial - multi-dose SQ SCH ×3 (02:49→13:33)
[2020-09-05 03:01] LABS: ABG HCO3 23.2 mmol/L (22.0-26.0); ABG OXYGEN SATURATION 95.4 % (94-97); ABG PCO2 (T) 28.7 mmHg (35.0-48.0); ABG PO2 (T) 110.6 mmHg (75.0-100.0); FCOHb 0.3 % (0.0-3.9); FMetHb 0.1 % (0.0-1.5); PATIENT TEMPERATURE 37.5; PEEP 5 cm H2O; RESPIRATORY RATE 14 b/min; TIDAL VOLUME 450 mL; TOTAL HEMOGLOBIN 8.4 G/dl (14.0-18.0)
[2020-09-05 03:03] LABS: ALANINE AMINOTRANSFERASE 43 U/L (12-78); ALBUMIN 2.2 G/DL (3.4-5.0); ALBUMIN/GLOBULIN RATIO 0.9 (1.1-1.5); ALKALINE PHOSPHATASE 125 IU/L (46-116); ANION GAP 10 (8-16); ASPARTATE AMINO TRANSFERASE 29 U/L (10-37); BLOOD UREA NITROGEN 44 MG/DL (7-18); BUN/CREATININE RATIO 13.3 (5.4-32.0); CALCIUM 6.2 MG/DL (8.5-10.1); CHLORIDE 106 MMOL/L (99-107); CREATININE 3.32 MG/DL (0.60-1.10); GLUCOSE 113 MG/DL (70-104); MAGNESIUM 1.8 MG/DL (1.5-2.4); PHOSPHORUS 2.4 MG/DL (2.3-4.5); SODIUM 140 MMOL/L (135-145); TOTAL CARBON DIOXIDE 23.6 MMOL/L (24-32); TOTAL PROTEIN 4.6 G/DL (6.4-8.2); eGFR 18 ML/MIN
[2020-09-05] MEDS: dexmedetomidine/D5W 100mL 100 ML IV SCH ×3 (03:29→19:32)
--- NOTE | 2020-09-05 07:00 | NUR ---
Patient in room ICU 2041. I have received report from Pito HILL and had the opportunity to ask questions and assume patient care. Addendum: 09/05/20 at 0700 by Rox Peña RN Amended: Links added.
[2020-09-05] MEDS: piperacillin/tazo 3.375gm/50ml 50 ML IV SCH ×2 (07:35→20:48)
[2020-09-05] MEDS: hydrocortisone sod succ/PF 100mg/2ml inj. IV SCH ×2 (07:35→15:36)
[2020-09-05] MEDS: famotidine/PF 10 mg/ml inj IV SCH ×2 (07:35→20:49)
[2020-09-05] MEDS: lactobacillus rhamnosus 10,000 MMU CELLS/CAPSULE PO SCH ×2 (07:35→20:49)
[2020-09-05] MEDS: K and/or MAG REPLACEMENT MC SCH ×2 (07:43→20:00)
--- NOTE | 2020-09-05 11:27 | NUR ---
Perineum dressing changed per order. Pt. on spont. on vent. Tends to have RR 5-9 on spont.
--- NOTE | 2020-09-05 11:44 | NUR ---
Pt. placed back on a rate on vent as it kept alarming low RR.
--- NOTE | 2020-09-05 12:49 | NUR ---
Reassessment: Pt TF advancing to goal and tolerating GRV WNL. Ileostomy 800ml output WNL for new ileostomy post-op. Pt still to receive HD per caustic liquor maker. Na 140 at this time. Pt may benefit from Yao IF additional 360ml free water daily allowable on HD. Will continue to monitor. Rec: 1. Continuous tube feeding using Vital High Protein at 85ml/hr goal will provide 2040 ml volume, 2040 calories, 179 g protein, 1714 ml water. 2. Water flush per d/t HD. If able to provide water flushes recommend Yao BID for wound healing needs 3. PALB Q /; daily wts 4. bowel care per rx 5. Ileostomy diet ed once stable s/p extubation Addendum: 09/05/20 at [address] Amended: Links added.
--- NOTE | 2020-09-05 14:27 | NUR ---
Dr. Kapoor in to see pt. RN showed him pt's stoma and reddish-colored fluid from it.
--- NOTE | 2020-09-05 18:14 | NUR ---
Problems reprioritized. Patient report given, questions answered & plan of care reviewed with Pito HILL.
[2020-09-05] MEDS: dextrose 50%-water 50ml dispensing syringe IV PRN (19:31)
[2020-09-05] MEDS: insulin glargine (Lantus) pen - multi-dose SQ SCH (20:49)
--- NOTE | 2020-09-05 21:34 | NUR ---
RAJESH Lugo and Dr Kapoor notified of extended bowl out of colostomy stoma. (measured 5 inches). PTs. low FSBS (630 treated with D50 1/2 amp recheck 118. Patient vomited around ett out of mouth while at bedside. Quick oral and Ett sxn performed. OG that was used for Vital HP tube feeding at goal 85cc was hooked up to continuous sxn and produced approx 1000 ml. MD Coates Will start patient on D10 IV @ 50ml/hr. per RAJESH Lugo. Vital signs stable @ this time SpO2 99% via Mechanichael Addendum: 09/05/20 at 2144 by Pito Pham RN mechanical ventilation. Bowel tissue at stoma is red and appears to be oxygenated tissue.
[2020-09-05] MEDS: Dextrose 10%-water IV solution 1,000 ML IV SCH (22:45)
[2020-09-06] VITALS (24 sets, daily range): BP systolic 87–138; BP diastolic 48–72
[2020-09-06] MEDS: dexmedetomidine/D5W 100mL 100 ML IV SCH ×2 (01:36→08:30)
[2020-09-06 03:08] LABS: BASOPHILS % (AUTO) 0.1 % (0-1); EOSINOPHILS % (AUTO) 0 % (0-6); HEMATOCRIT 24.6 % (42.0-52.0); HEMOGLOBIN 8.2 g/dl (14.0-17.9); LYMPHOCYTES # (AUTO) 0.7 X10'3 (1.1-4.8); LYMPHOCYTES % (AUTO) 5.3 % (21-51); MEAN CORPUSCULAR HGB CONC 33.5 g/dL (33.0-36.5); MEAN CORPUSCULAR VOLUME 89.5 FL (78-98); MEAN PLATELET VOLUME 8.6 FL (7.4-10.4); MONOCYTES # (AUTO) 0.4 X10'3 (0-0.9); MONOCYTES % (AUTO) 2.9 % (2-12); NEUTROPHILS # (AUTO) 12.2 X10'3 (1.8-7.7); NEUTROPHILS % (AUTO) 91.7 % (42-75); PLATELET COUNT 97 X10'3 (140-440); RED BLOOD COUNT 2.75 X10'6 (4.70-6.10); RED CELL DISTRIBUTION WIDTH 16.1 % (11.5-14.5); WHITE BLOOD COUNT 13.3 X10'3 (4.5-11.0)
[2020-09-06 03:30] LABS: ALANINE AMINOTRANSFERASE 38 U/L (12-78); ALBUMIN 2.1 G/DL (3.4-5.0); ALBUMIN/GLOBULIN RATIO 0.8 (1.1-1.5); ALKALINE PHOSPHATASE 111 IU/L (46-116); ANION GAP 12 (8-16); ASPARTATE AMINO TRANSFERASE 20 U/L (10-37); BILIRUBIN,TOTAL 0.8 MG/DL (0.1-1.0); BLOOD UREA NITROGEN 66 MG/DL (7-18); BUN/CREATININE RATIO 14.6 (5.4-32.0); CHLORIDE 105 MMOL/L (99-107); CREATININE 4.52 MG/DL (0.60-1.10); GLUCOSE 157 MG/DL (70-104); MAGNESIUM 1.7 MG/DL (1.5-2.4); PHOSPHORUS 3.3 MG/DL (2.3-4.5); POTASSIUM 4.4 MMOL/L (3.5-5.1); PREALBUMIN 14.5 MG/DL (19-36); SODIUM 140 MMOL/L (135-145); TOTAL CARBON DIOXIDE 23.2 MMOL/L (24-32); TOTAL PROTEIN 4.6 G/DL (6.4-8.2); eGFR 13 ML/MIN
[2020-09-06 03:35] LABS: CALCIUM 5.9 MG/DL (8.5-10.1)
[2020-09-06] MEDS: insulin regular, human U-100 3ml vial - multi-dose SQ SCH ×3 (03:37→13:46)
[2020-09-06] MEDS: FENTANYL-0.9 % NACL/PF 100 ML IV PRN ×3 (05:08→16:21)
[2020-09-06 06:01] LABS: ABG BASE EXCESS 0.6 mmol/L (-2.0-2.0); ABG HCO3 23.2 mmol/L (22.0-26.0); ABG OXYGEN SATURATION 93.8 % (94-97); ABG PCO2 (T) 30.1 mmHg (35.0-48.0); ABG PO2 (T) 77.9 mmHg (75.0-100.0); FCOHb 0.3 % (0.0-3.9); FMetHb 0.2 % (0.0-1.5); FO2Hb 93.3 % (94-97); PATIENT TEMPERATURE 37.2; PEEP 5 cm H2O; RESPIRATORY RATE 14 b/min; TIDAL VOLUME 450 mL
[2020-09-06] MEDS ORDERED: calcium chloride inj. 1,000 MG in normal saline 100ml IV soln 100 ML IV ONE (06:05)
--- NOTE | 2020-09-06 06:19 | NUR ---
Patient in room ICU 2041. I have received report from Pito HILL and had the opportunity to ask questions and assume patient care. Addendum: 09/06/20 at 0620 by Rox Peña RN Amended: Links added.
[2020-09-06] MEDS: piperacillin/tazo 3.375gm/50ml 50 ML IV SCH ×2 (07:34→19:07)
[2020-09-06] MEDS: hydrocortisone sod succ/PF 100mg/2ml inj. IV SCH ×3 (07:37→16:11)
[2020-09-06] MEDS: lactobacillus rhamnosus 10,000 MMU CELLS/CAPSULE PO SCH ×2 (07:37→19:07)
[2020-09-06] MEDS: K and/or MAG REPLACEMENT MC SCH ×2 (07:37→19:03)
[2020-09-06] MEDS: famotidine/PF 10 mg/ml inj IV SCH ×2 (07:39→19:07)
--- NOTE | 2020-09-06 07:41 | NUR ---
HR karolyn to 44. Precedex and Fentanyl turned off. environmental health aide aware. HR up to 56-62 with meds off.
[2020-09-06] MEDS ORDERED: heparin 1,000 units/ml 10ml inj HE ONE ×2 (08:00)
[2020-09-06] MEDS ORDERED: normal saline 1000ml 250 ML IV PRN (08:00)
[2020-09-06] MEDS ORDERED: epoetin 20,000 units/ml inj IV ONE (08:00)
[2020-09-06] MEDS ORDERED: heparin 1,000unit/ml 10ml vial 10 ML IV ONE (08:00)
--- NOTE | 2020-09-06 08:14 | NUR ---
Pt.'s art. line came out when RN was with other patient. No bleeding noted. Pressure dressing applied.
[2020-09-06 08:34] LABS: PLATELET ESTIMATE NORMAL; TOTAL CELLS COUNTED 100
--- NOTE | 2020-09-06 08:42 | NUR ---
Pt. getting set up for HD.
--- NOTE | 2020-09-06 09:45 | NUR ---
BP low. RN alerted HD RN.
--- NOTE | 2020-09-06 10:14 | NUR ---
ROUNDS NOTE: Dr. Angel aware of no art. line, TF off and OGT to RICKIE RN showed him the iliostomy that is protruding out. Dr. Angel stated he called and spoke with Dr. Moreno who will "take care of it."
--- NOTE | 2020-09-06 10:57 | NUR ---
F/u 09/06: Pt GRV 1000ml last night w/ 1400 suctioned via OG. Per KUB results ileus vs partial obstruction. TF held at this time. Ileostomy output 250ml and ileostomy stoma out by 6in per RN at rounds. Will monitor for EN tolerance once re-initiated as medically indicated. Consider trickle feeding if concerns for intolerance w/ continued Ileostomy output. Addendum: 09/06/20 at [address] Amended: Links added.
--- NOTE | 2020-09-06 11:46 | NUR ---
Pt. extremely agitated. ETT slightly out X 2 different episodes this am while RN was with other pt. RT here. Bolused with Fentanyl. ETT placed in correct position. housing assistant aware. Will start Versed if pt. remains agitated.
[2020-09-06] MEDS: midazolam 100mg in NS 100ml 100 ML IV PRN (12:11)
--- NOTE | 2020-09-06 12:44 | NUR ---
Dr. Angel notified that pt. is extremely agitated despite Fentanyl and max Precedex. Order for Versed obtained and initiated. HD just finishing now.
--- NOTE | 2020-09-06 12:52 | NUR ---
pt. bradycardic in the 50s again. Will stop Precedex.
[2020-09-06] MEDS: Dextrose 10%-water IV solution 1,000 ML IV SCH (15:07)
--- NOTE | 2020-09-06 15:59 | NUR ---
CVL RIJ changed.
--- NOTE | 2020-09-06 18:10 | NUR ---
Patient in room ICU 2041. I have received report from zoe jennings and had the opportunity to ask questions and assume patient care.
[2020-09-06] MEDS: mineral oil/petrolatum ophthal oint EACHEYE SCH (19:07)
[2020-09-06] MEDS: insulin glargine (Lantus) pen - multi-dose SQ SCH (20:02)
--- NOTE | 2020-09-06 22:39 | NUR ---
pt dressing changes. sterility maintained. wet to moist kerlix used to pack wound. abdominal pads placed over kerlix and tapered in place.
[2020-09-07] VITALS (32 sets, daily range): BP systolic 79–128; BP diastolic 43–74
[2020-09-07] MEDS: hydrocortisone sod succ/PF 100mg/2ml inj. IV SCH ×3 (00:02→15:42)
[2020-09-07] MEDS: mineral oil/petrolatum ophthal oint EACHEYE SCH ×4 (02:21→19:46)
[2020-09-07] MEDS: insulin regular, human U-100 3ml vial - multi-dose SQ SCH ×4 (02:25→19:56)
[2020-09-07 02:33] LABS: BASOPHILS # (AUTO) 0.1 X10'3 (0-0.2); BASOPHILS % (AUTO) 0.4 % (0-1); EOSINOPHILS % (AUTO) 0 % (0-6); HEMATOCRIT 26.6 % (42.0-52.0); HEMOGLOBIN 8.8 g/dl (14.0-17.9); LYMPHOCYTES # (AUTO) 0.4 X10'3 (1.1-4.8); LYMPHOCYTES % (AUTO) 1.8 % (21-51); MEAN CORPUSCULAR HEMOGLOBIN 29.7 PG (27.0-31.0); MEAN CORPUSCULAR VOLUME 89.9 FL (78-98); MEAN PLATELET VOLUME 8.7 FL (7.4-10.4); MONOCYTES # (AUTO) 0.4 X10'3 (0-0.9); MONOCYTES % (AUTO) 2.1 % (2-12); NEUTROPHILS # (AUTO) 19.7 X10'3 (1.8-7.7); NEUTROPHILS % (AUTO) 95.7 % (42-75); PLATELET COUNT 142 X10'3 (140-440); RED BLOOD COUNT 2.96 X10'6 (4.70-6.10); RED CELL DISTRIBUTION WIDTH 15.9 % (11.5-14.5); WHITE BLOOD COUNT 20.6 X10'3 (4.5-11.0)
[2020-09-07 02:52] LABS: ALANINE AMINOTRANSFERASE 36 U/L (12-78); ALBUMIN 2.2 G/DL (3.4-5.0); ALBUMIN/GLOBULIN RATIO 0.8 (1.1-1.5); ALKALINE PHOSPHATASE 105 IU/L (46-116); ANION GAP 13 (8-16); ASPARTATE AMINO TRANSFERASE 17 U/L (10-37); BILIRUBIN,TOTAL 0.8 MG/DL (0.1-1.0); BLOOD UREA NITROGEN 45 MG/DL (7-18); CALCIUM 6.6 MG/DL (8.5-10.1); CHLORIDE 103 MMOL/L (99-107); GLUCOSE 176 MG/DL (70-104); MAGNESIUM 1.6 MG/DL (1.5-2.4); PHOSPHORUS 3.5 MG/DL (2.3-4.5); SODIUM 140 MMOL/L (135-145); TOTAL CARBON DIOXIDE 24.5 MMOL/L (24-32); TOTAL PROTEIN 4.8 G/DL (6.4-8.2); eGFR 14 ML/MIN
[2020-09-07 03:35] LABS: ABG BASE EXCESS 1.5 mmol/L (-2.0-2.0); ABG HCO3 25.3 mmol/L (22.0-26.0); ABG OXYGEN SATURATION 95.1 % (94-97); ABG PCO2 (T) 35.5 mmHg (35.0-48.0); ABG PO2 (T) 91.2 mmHg (75.0-100.0); FCOHb 0.3 % (0.0-3.9); FMetHb 0.2 % (0.0-1.5); FO2Hb 94.6 % (94-97); PATIENT TEMPERATURE 36.7; PEEP 5 cm H2O; RESPIRATORY RATE 14 b/min; TIDAL VOLUME 450 mL; TOTAL HEMOGLOBIN 8.9 G/dl (14.0-18.0)
[2020-09-07] MEDS: FENTANYL-0.9 % NACL/PF 100 ML IV PRN ×2 (06:27→14:18)
--- NOTE | 2020-09-07 06:30 | NUR ---
Patient in room ICU 2041. I have received report from Ingrid HILL and had the opportunity to ask questions and assume patient care. Addendum: 09/07/20 at 0630 by Rox Peña RN Amended: Links added.
[2020-09-07] MEDS: piperacillin/tazo 3.375gm/50ml 50 ML IV SCH ×2 (07:43→19:46)
[2020-09-07] MEDS: famotidine/PF 10 mg/ml inj IV SCH ×2 (07:43→19:46)
[2020-09-07] MEDS: K and/or MAG REPLACEMENT MC SCH ×2 (07:47→18:28)
[2020-09-07] MEDS: lactobacillus rhamnosus 10,000 MMU CELLS/CAPSULE PO SCH ×2 (07:47→19:46)
--- NOTE | 2020-09-07 10:31 | NUR ---
Pt. to go to OR at 1200. New Type and Screen done with current blood band as it was not current.
[2020-09-07] MEDS: Dextrose 10%-water IV solution 1,000 ML IV SCH (10:42)
--- NOTE | 2020-09-07 11:10 | NUR ---
Dr. Saldivar here to assess pt for OR. Dr. Saldivar obtained telephone consent from pt's g.daughter Rita.
[2020-09-07] MEDS ORDERED: sevoflurane 250ml liquid IH ONE (11:45)
--- NOTE | 2020-09-07 12:00 | NUR ---
Pt. to OR with OR RNs X [address] Óscar Saldivar.
[2020-09-07] MEDS ORDERED: rocuronium 10mg/ml inj IV ONE (12:13)
[2020-09-07] MEDS ORDERED: ePHEDrine 50MG/ML INJ. ONE (12:22)
[2020-09-07] MEDS ORDERED: 0.9 % SODIUM CHLORIDE 10 ML VIAL ONE (12:29)
--- NOTE | 2020-09-07 13:00 | NUR ---
Back from OR for stoma revision and perineum debridement.
--- NOTE | 2020-09-07 13:23 | NUR ---
Dr. Tanner in to see pt.
--- NOTE | 2020-09-07 14:08 | NUR ---
Merlin latif placed on pt.
[2020-09-07] MEDS: midazolam 100mg in NS 100ml 100 ML IV PRN (14:17)
--- NOTE | 2020-09-07 14:47 | NUR ---
Post op vitals obtained and documented.
--- NOTE | 2020-09-07 14:54 | NUR ---
RN called Dr. Morneo re. bloody ostomy output of 440cc. He stated "that's fine." RN asked if he would like a hemogram this evening. He stated "ok."
--- NOTE | 2020-09-07 17:37 | NUR ---
Bleeding from new ostomy appliance. Charge and resource aware. Stated to not change bag but to apply dressings. 5 Opti lock dressings and several abd. pads applied and secured with tape. New dri flos applied to bed. New gown provided as there was a small area of blood noted. Will draw hemogram at 1800 per order.
--- NOTE | 2020-09-07 17:53 | NUR ---
1800 Hemogram drawn and handed to tech to take to lab. VSS. Dressing over stoma appliance remains dry.
--- NOTE | 2020-09-07 18:12 | NUR ---
Problems reprioritized. Patient report given, questions answered & plan of care reviewed with Ingrid HILL.
[2020-09-07 18:14] LABS: HEMOGLOBIN 7.4 g/dl (14.0-17.9); MEAN CORPUSCULAR HEMOGLOBIN 29.5 PG (27.0-31.0); MEAN CORPUSCULAR HGB CONC 32.4 g/dL (33.0-36.5); MEAN CORPUSCULAR VOLUME 91.1 FL (78-98); MEAN PLATELET VOLUME 8.7 FL (7.4-10.4); PLATELET COUNT 182 X10'3 (140-440); RED BLOOD COUNT 2.52 X10'6 (4.70-6.10); RED CELL DISTRIBUTION WIDTH 16.1 % (11.5-14.5)
[2020-09-07 18:17] LABS: WHITE BLOOD COUNT 25.7 X10'3 (4.5-11.0)
--- NOTE | 2020-09-07 18:21 | NUR ---
Patient in room ICU 2041. I have received report from sarah jennings and had the opportunity to ask questions and assume patient care.
--- NOTE | 2020-09-07 18:44 | NUR ---
pt put out 300 ml sanguinous blood with clots. hgb 7.4, hct 23. md carmichael notified. ordered to call in OR for bovi procedure at the bedside
--- NOTE | 2020-09-07 19:21 | NUR ---
md Moreno performed bovi procedure with or nurse and primary nurse at bedside. pt had sedation going per protocol. pt tolerated procedure well. will continue to monitor ostomy site.
--- NOTE | 2020-09-07 19:24 | NUR ---
md carmichael ordered no perineal dressing change [place]. resume b Addendum: 09/07/20 at 1925 by Ingrid Smart RN resume BID dressing changes tomorrow
[2020-09-07] MEDS: insulin glargine (Lantus) pen - multi-dose SQ SCH (20:01)
[2020-09-07 21:48] LABS: MEAN CORPUSCULAR HEMOGLOBIN 29.7 PG (27.0-31.0); MEAN CORPUSCULAR HGB CONC 32.6 g/dL (33.0-36.5); MEAN CORPUSCULAR VOLUME 91.1 FL (78-98); MEAN PLATELET VOLUME 8.7 FL (7.4-10.4); PLATELET COUNT 188 X10'3 (140-440); RED CELL DISTRIBUTION WIDTH 15.9 % (11.5-14.5)
[2020-09-07 21:53] LABS: HEMOGLOBIN 6.8 g/dl (14.0-17.9); WHITE BLOOD COUNT 30.3 X10'3 (4.5-11.0)
[2020-09-08] VITALS (26 sets, daily range): BP systolic 81–137; BP diastolic 47–75
[2020-09-08] MEDS: hydrocortisone sod succ/PF 100mg/2ml inj. IV SCH ×3 (00:23→16:05)
[2020-09-08] MEDS: FENTANYL-0.9 % NACL/PF 100 ML IV PRN ×3 (02:04→14:57)
[2020-09-08] MEDS: mineral oil/petrolatum ophthal oint EACHEYE SCH ×4 (02:04→19:45)
[2020-09-08] MEDS: insulin regular, human U-100 3ml vial - multi-dose SQ SCH ×3 (02:09→19:47)
[2020-09-08] MEDS ORDERED: NORepinephrine 8mg/ 250ml NS 250 ML IV ONE (02:36)
[2020-09-08] MEDS: NORepinephrine 8mg/ 250ml NS 250 ML IV SCH ×2 (02:43→20:07)
[2020-09-08 03:02] LABS: BASOPHILS % (AUTO) 0 % (0-1); EOSINOPHILS % (AUTO) 0 % (0-6); HEMATOCRIT 24.4 % (42.0-52.0); LYMPHOCYTES # (AUTO) 0.5 X10'3 (1.1-4.8); LYMPHOCYTES % (AUTO) 1.8 % (21-51); MEAN CORPUSCULAR HEMOGLOBIN 29.2 PG (27.0-31.0); MEAN CORPUSCULAR HGB CONC 32.7 g/dL (33.0-36.5); MEAN CORPUSCULAR VOLUME 89.2 FL (78-98); MEAN PLATELET VOLUME 8.6 FL (7.4-10.4); MONOCYTES # (AUTO) 0.5 X10'3 (0-0.9); MONOCYTES % (AUTO) 1.9 % (2-12); NEUTROPHILS # (AUTO) 25.8 X10'3 (1.8-7.7); NEUTROPHILS % (AUTO) 96.3 % (42-75); PLATELET COUNT 183 X10'3 (140-440); RED BLOOD COUNT 2.74 X10'6 (4.70-6.10)
[2020-09-08 03:08] LABS: WHITE BLOOD COUNT 26.8 X10'3 (4.5-11.0)
[2020-09-08 03:19] LABS: ALANINE AMINOTRANSFERASE 28 U/L (12-78); ALBUMIN 1.8 G/DL (3.4-5.0); ALBUMIN/GLOBULIN RATIO 0.8 (1.1-1.5); ALKALINE PHOSPHATASE 77 IU/L (46-116); ANION GAP 10 (8-16); ASPARTATE AMINO TRANSFERASE 14 U/L (10-37); BILIRUBIN,TOTAL 0.9 MG/DL (0.1-1.0); BLOOD UREA NITROGEN 52 MG/DL (7-18); BUN/CREATININE RATIO 10.5 (5.4-32.0); CHLORIDE 102 MMOL/L (99-107); CREATININE 4.97 MG/DL (0.60-1.10); GLUCOSE 148 MG/DL (70-104); MAGNESIUM 1.5 MG/DL (1.5-2.4); PHOSPHORUS 4.6 MG/DL (2.3-4.5); POTASSIUM 3.9 MMOL/L (3.5-5.1); SODIUM 138 MMOL/L (135-145); TOTAL CARBON DIOXIDE 26.5 MMOL/L (24-32); TOTAL PROTEIN 4.1 G/DL (6.4-8.2); eGFR 11 ML/MIN
[2020-09-08 03:21] LABS: CALCIUM 5.9 MG/DL (8.5-10.1)
[2020-09-08] MEDS ORDERED: calcium chloride inj. 1,000 MG in normal saline 100ml IV soln 100 ML IV ONE (03:25)
[2020-09-08 04:01] LABS: ABG BASE EXCESS -0.5 mmol/L (-2.0-2.0); ABG HCO3 23.4 mmol/L (22.0-26.0); ABG PCO2 (T) 35.2 mmHg (35.0-48.0); ABG PO2 (T) 101.4 mmHg (75.0-100.0); FCOHb 0.3 % (0.0-3.9); FMetHb 0.3 % (0.0-1.5); FO2Hb 95.4 % (94-97); PATIENT TEMPERATURE 36.9; PEEP 5 cm H2O; RESPIRATORY RATE 12 b/min; TIDAL VOLUME 450 mL; TOTAL HEMOGLOBIN 9.1 G/dl (14.0-18.0)
[2020-09-08] MEDS ORDERED: epoetin 20,000 units/ml inj IV ONE (06:30)
[2020-09-08] MEDS ORDERED: heparin 1,000unit/ml 10ml vial 10 ML IV ONE (06:30)
[2020-09-08] MEDS ORDERED: normal saline 1000ml 250 ML IV PRN (06:30)
--- NOTE | 2020-09-08 06:30 | NUR ---
Patient in room ICU 2041. I have received report from Ingrid HILL and had the opportunity to ask questions and assume patient care.
[2020-09-08] MEDS ORDERED: heparin 1,000 units/ml 10ml inj HE ONE ×2 (06:35)
[2020-09-08] MEDS: K and/or MAG REPLACEMENT MC SCH ×2 (08:00→19:30)
[2020-09-08] MEDS: Dextrose 10%-water IV solution 1,000 ML IV SCH (08:01)
[2020-09-08] MEDS: famotidine/PF 10 mg/ml inj IV SCH ×2 (08:21→19:44)
[2020-09-08] MEDS: piperacillin/tazo 3.375gm/50ml 50 ML IV SCH ×2 (08:38→19:44)
[2020-09-08] MEDS: lactobacillus rhamnosus 10,000 MMU CELLS/CAPSULE PO SCH ×2 (08:41→19:44)
--- NOTE | 2020-09-08 11:29 | NUR ---
F/u 09/08: Pt s/p Ileostomy revision w/ 3cm removed and repeat debridement of perineal wound per surgeon note. Ileostomy 250ml output yesterday w/ serosanguineous output today per RN; 500ml gastric suction at this time per EMR. Pt remains NPO post-op w/ concerns for continued Ileus given KUB 09/06 results. TPN recs below in case prolonged NPO given extensive wound healing needs on vent and w/ HD today. Will continue to monitor. Rec: 1. IF to restart EN; continuous TF using Vital High Protein at 85ml/hr goal will provide 2040 ml volume, 2040 calories, 179 g protein, 1714 ml water. Initiate at 20ml/hr and advance as tolerated. 2. IF TF restart; Water flush per MD d/t HD. If able to provide water flushes on HD recommend Yao BID for wound healing needs 3. PALB Q /; daily wts 4. bowel care per rx; consider opioid antagonist as medically indicated 5. IF TPN; consider custom PN on HD given protein needs using 1500ml 10%AA, 500ml D70, 100ml 20% intralipids. To provide total volume of 2100ml/day, 150g AA, 350g DEX(3.27mg/kg/min), 20g lipids, and 1990 total kcals. 6. Ileostomy diet ed once stable s/p extubation Addendum: 09/08/20 at [address] Amended: Links added.
--- NOTE | 2020-09-08 12:00 | NUR ---
Dr. Angel by to examine pt; states to restart TF at 10ml/hr to assess tolerance.
[2020-09-08] MEDS ORDERED: tPA-cathflo 2 MG/2 ml IV flush IVF ONE (16:10)
[2020-09-08] MEDS: midazolam 100mg in NS 100ml 100 ML IV PRN (18:17)
--- NOTE | 2020-09-08 18:20 | NUR ---
Problems reprioritized. Patient report given, questions answered & plan of care reviewed with Ingrid HILL. Student documentation: I have reviewed and agree with all interventions, assessments performed and documented by Vidal Nicole RN. Student Medication Administration: For this medication-pass time frame, all medication were reviewed, dispensed, administered and documented per hospital policy by Vidal Nicole RN.
--- NOTE | 2020-09-08 18:28 | NUR ---
Patient in room ICU 2041. I have received report from miriam jennings and had the opportunity to ask questions and assume patient care.
[2020-09-08] MEDS: insulin glargine (Lantus) pen - multi-dose SQ SCH (19:48)
[2020-09-09] VITALS (22 sets, daily range): BP systolic 87–125; BP diastolic 51–75
[2020-09-09] MEDS: hydrocortisone sod succ/PF 100mg/2ml inj. IV SCH ×3 (00:39→17:03)
[2020-09-09] MEDS: FENTANYL-0.9 % NACL/PF 100 ML IV PRN ×3 (00:39→15:18)
[2020-09-09] MEDS: Dextrose 10%-water IV solution 1,000 ML IV SCH (02:12)
[2020-09-09] MEDS: mineral oil/petrolatum ophthal oint EACHEYE SCH ×4 (02:12→20:01)
[2020-09-09] MEDS: insulin regular, human U-100 3ml vial - multi-dose SQ SCH (02:16)
[2020-09-09 03:30] LABS: BASOPHILS # (AUTO) 0.1 X10'3 (0-0.2); BASOPHILS % (AUTO) 0.1 % (0-1); EOSINOPHILS % (AUTO) 0 % (0-6); HEMATOCRIT 28.7 % (42.0-52.0); HEMOGLOBIN 9.2 g/dl (14.0-17.9); LYMPHOCYTES # (AUTO) 0.7 X10'3 (1.1-4.8); LYMPHOCYTES % (AUTO) 1.5 % (21-51); MEAN CORPUSCULAR HEMOGLOBIN 28.8 PG (27.0-31.0); MEAN CORPUSCULAR VOLUME 90.1 FL (78-98); MEAN PLATELET VOLUME 8.4 FL (7.4-10.4); MONOCYTES # (AUTO) 1.6 X10'3 (0-0.9); MONOCYTES % (AUTO) 3.5 % (2-12); NEUTROPHILS # (AUTO) 42.1 X10'3 (1.8-7.7); NEUTROPHILS % (AUTO) 94.9 % (42-75); PLATELET COUNT 329 X10'3 (140-440); RED BLOOD COUNT 3.19 X10'6 (4.70-6.10); RED CELL DISTRIBUTION WIDTH 16.9 % (11.5-14.5)
[2020-09-09 03:34] LABS: WHITE BLOOD COUNT 44.4 X10'3 (4.5-11.0)
[2020-09-09 03:44] LABS: ALANINE AMINOTRANSFERASE 30 U/L (12-78); ALBUMIN 2.1 G/DL (3.4-5.0); ALBUMIN/GLOBULIN RATIO 0.7 (1.1-1.5); ALKALINE PHOSPHATASE 95 IU/L (46-116); ANION GAP 9 (8-16); ASPARTATE AMINO TRANSFERASE 15 U/L (10-37); BILIRUBIN,TOTAL 0.6 MG/DL (0.1-1.0); BLOOD UREA NITROGEN 24 MG/DL (7-18); BUN/CREATININE RATIO 8.6 (5.4-32.0); CALCIUM 6.8 MG/DL (8.5-10.1); CHLORIDE 101 MMOL/L (99-107); CREATININE 2.78 MG/DL (0.60-1.10); GLUCOSE 116 MG/DL (70-104); POTASSIUM 3.9 MMOL/L (3.5-5.1); SODIUM 137 MMOL/L (135-145); TOTAL CARBON DIOXIDE 27.1 MMOL/L (24-32); eGFR 22 ML/MIN
[2020-09-09 03:56] LABS: ABG BASE EXCESS 1.9 mmol/L (-2.0-2.0); ABG OXYGEN SATURATION 95.7 % (94-97); ABG PCO2 (T) 37.4 mmHg (35.0-48.0); ABG PO2 (T) 90.1 mmHg (75.0-100.0); FCOHb 0.3 % (0.0-3.9); FMetHb 0.2 % (0.0-1.5); FO2Hb 95.2 % (94-97); PATIENT TEMPERATURE 36.5; PEEP 5 cm H2O; RESPIRATORY RATE 12 b/min; TIDAL VOLUME 450 mL; TOTAL HEMOGLOBIN 9.8 G/dl (14.0-18.0)
[2020-09-09 04:01] LABS: TOTAL CELLS COUNTED 100
[2020-09-09 04:02] LABS: ANISOCYTOSIS 2+; PLATELET ESTIMATE NORMAL
--- NOTE | 2020-09-09 06:12 | NUR ---
Problems reprioritized. Patient report given, questions answered & plan of care reviewed with velia jennings.
--- NOTE | 2020-09-09 07:00 | NUR ---
Stopped D10 after confirming with charge. D10 was initially started a few days ago when tube feed was held, but pt kept getting treated as a lvl 5 on hyperglycemic protocol. Patient is only on trickle feeds at this time. Will stop D10 and treat patients sugar as appropriate. Will confirm with MD when he gets here.
[2020-09-09] MEDS: K and/or MAG REPLACEMENT MC SCH ×2 (08:00→20:00)
[2020-09-09] MEDS: famotidine/PF 10 mg/ml inj IV SCH ×2 (08:56→19:23)
[2020-09-09] MEDS: lactobacillus rhamnosus 10,000 MMU CELLS/CAPSULE PO SCH ×2 (08:56→19:31)
[2020-09-09] MEDS: piperacillin/tazo 3.375gm/50ml 50 ML IV SCH ×2 (08:56→19:30)
[2020-09-09] MEDS: dextrose 50%-water 50ml dispensing syringe IV PRN (10:50)
--- NOTE | 2020-09-09 12:00 | NUR ---
GRV 400. 300 returned per protocol. Patient on trickle feed
[2020-09-09] MEDS: NORepinephrine 8mg/ 250ml NS 250 ML IV SCH (13:44)
--- NOTE | 2020-09-09 19:00 | NUR ---
Patient in room ICU 2041. I have received report from Iam HILL and had the opportunity to ask questions and assume patient care.
--- NOTE | 2020-09-09 20:31 | NUR ---
pupil on the left side is misshapen and nonreactive, showed it to Antione, said it was probably to cataract surgery.
[2020-09-09] MEDS: midazolam 100mg in NS 100ml 100 ML IV PRN (20:56)
[2020-09-09] MEDS: insulin glargine (Lantus) pen - multi-dose SQ SCH (21:00)
[2020-09-10] VITALS (27 sets, daily range): BP systolic 85–121; BP diastolic 49–74
[2020-09-10] MEDS: hydrocortisone sod succ/PF 100mg/2ml inj. IV SCH ×3 (00:27→17:26)
[2020-09-10 02:00] LABS: BASOPHILS % (AUTO) 0.1 % (0-1); EOSINOPHILS % (AUTO) 0 % (0-6); HEMATOCRIT 23.5 % (42.0-52.0); HEMOGLOBIN 7.7 g/dl (14.0-17.9); LYMPHOCYTES # (AUTO) 0.8 X10'3 (1.1-4.8); LYMPHOCYTES % (AUTO) 2.7 % (21-51); MEAN CORPUSCULAR HEMOGLOBIN 29.9 PG (27.0-31.0); MEAN CORPUSCULAR HGB CONC 32.8 g/dL (33.0-36.5); MEAN CORPUSCULAR VOLUME 91.1 FL (78-98); MEAN PLATELET VOLUME 7.9 FL (7.4-10.4); MONOCYTES % (AUTO) 3.5 % (2-12); NEUTROPHILS % (AUTO) 93.7 % (42-75); PLATELET COUNT 339 X10'3 (140-440); RED BLOOD COUNT 2.58 X10'6 (4.70-6.10); RED CELL DISTRIBUTION WIDTH 16.6 % (11.5-14.5)
[2020-09-10] MEDS: mineral oil/petrolatum ophthal oint EACHEYE SCH ×4 (02:00→20:00)
[2020-09-10 02:09] LABS: WHITE BLOOD COUNT 27.8 X10'3 (4.5-11.0)
[2020-09-10 02:10] LABS: ALANINE AMINOTRANSFERASE 24 U/L (12-78); ALBUMIN 1.8 G/DL (3.4-5.0); ALBUMIN/GLOBULIN RATIO 0.7 (1.1-1.5); ALKALINE PHOSPHATASE 90 IU/L (46-116); ANION GAP 8 (8-16); ASPARTATE AMINO TRANSFERASE 10 U/L (10-37); BILIRUBIN,TOTAL 0.5 MG/DL (0.1-1.0); BLOOD UREA NITROGEN 37 MG/DL (7-18); BUN/CREATININE RATIO 8.7 (5.4-32.0); CALCIUM 6.3 MG/DL (8.5-10.1); CHLORIDE 104 MMOL/L (99-107); CREATININE 4.26 MG/DL (0.60-1.10); GLUCOSE 122 MG/DL (70-104); MAGNESIUM 1.5 MG/DL (1.5-2.4); PHOSPHORUS 5.2 MG/DL (2.3-4.5); POTASSIUM 4.6 MMOL/L (3.5-5.1); SODIUM 139 MMOL/L (135-145); TOTAL CARBON DIOXIDE 27.5 MMOL/L (24-32); TOTAL PROTEIN 4.5 G/DL (6.4-8.2); eGFR 14 ML/MIN
[2020-09-10] MEDS: NORepinephrine 8mg/ 250ml NS 250 ML IV SCH (03:52)
[2020-09-10 03:58] LABS: ANISOCYTOSIS 2+; PLATELET ESTIMATE NORMAL; TOTAL CELLS COUNTED 100; TOXIC GRANULATION 3+
[2020-09-10 03:59] LABS: HYPOCHROMASIA 1+; LARGE PLATELETS MODERATE
[2020-09-10 04:00] LABS: ABG BASE EXCESS -0.6 mmol/L (-2.0-2.0); ABG OXYGEN SATURATION 91.7 % (94-97); ABG PCO2 (T) 37.8 mmHg (35.0-48.0); ABG PO2 (T) 64.3 mmHg (75.0-100.0); ALLEN'S TEST POSITIVE; FCOHb 0.6 % (0.0-3.9); FMetHb 0.3 % (0.0-1.5); FO2Hb 90.9 % (94-97); PATIENT TEMPERATURE 36.4; PEEP 5 cm H2O; RESPIRATORY RATE 14 b/min; TIDAL VOLUME 450 mL; TOTAL HEMOGLOBIN 8.2 G/dl (14.0-18.0)
[2020-09-10 04:04] LABS: POLYCHROMASIA FEW
[2020-09-10] MEDS: FENTANYL-0.9 % NACL/PF 100 ML IV PRN ×4 (05:15→23:28)
[2020-09-10] MEDS ORDERED: normal saline 1000ml 250 ML IV PRN (08:00)
[2020-09-10] MEDS ORDERED: epoetin 20,000 units/ml inj IV ONE (08:00)
[2020-09-10] MEDS ORDERED: heparin 1,000unit/ml 10ml vial 10 ML IV ONE (08:00)
[2020-09-10] MEDS ORDERED: heparin 1,000 units/ml 10ml inj HE ONE ×2 (08:00)
[2020-09-10] MEDS: K and/or MAG REPLACEMENT MC SCH ×2 (08:00→20:00)
[2020-09-10] MEDS: famotidine/PF 10 mg/ml inj IV SCH ×2 (08:33→21:24)
[2020-09-10] MEDS: lactobacillus rhamnosus 10,000 MMU CELLS/CAPSULE PO SCH ×2 (08:33→21:27)
[2020-09-10] MEDS: piperacillin/tazo 3.375gm/50ml 50 ML IV SCH ×2 (08:33→21:27)
--- NOTE | 2020-09-10 10:36 | NUR ---
tube feed increased to 20 per md
[2020-09-10 12:30] LABS: MEAN CORPUSCULAR HEMOGLOBIN 29.4 PG (27.0-31.0); MEAN CORPUSCULAR HGB CONC 32.4 g/dL (33.0-36.5); MEAN CORPUSCULAR VOLUME 90.9 FL (78-98); MEAN PLATELET VOLUME 7.7 FL (7.4-10.4); PLATELET COUNT 334 X10'3 (140-440); RED BLOOD COUNT 2.37 X10'6 (4.70-6.10); RED CELL DISTRIBUTION WIDTH 16.7 % (11.5-14.5); WHITE BLOOD COUNT 21.9 X10'3 (4.5-11.0)
[2020-09-10 12:35] LABS: HEMATOCRIT 21.5 % (42.0-52.0)
--- NOTE | 2020-09-10 17:30 | NUR ---
ETT came out to 20 and patient coughing around it. Called RT to advance ETT
[2020-09-10] MEDS: insulin glargine (Lantus) pen - multi-dose SQ SCH (21:00)
[2020-09-10] MEDS: midazolam 100mg in NS 100ml 100 ML IV PRN (23:28)
[2020-09-11] VITALS (24 sets, daily range): BP systolic 90–142; BP diastolic 54–88
[2020-09-11] MEDS: NORepinephrine 8mg/ 250ml NS 250 ML IV SCH ×2 (00:58→18:35)
[2020-09-11] MEDS: hydrocortisone sod succ/PF 100mg/2ml inj. IV SCH ×3 (01:21→15:26)
[2020-09-11] MEDS: mineral oil/petrolatum ophthal oint EACHEYE SCH ×4 (02:00→20:50)
[2020-09-11 02:41] LABS: BASOPHILS % (AUTO) 0.2 % (0-1); EOSINOPHILS % (AUTO) 0 % (0-6); HEMATOCRIT 24.9 % (42.0-52.0); HEMOGLOBIN 8.4 g/dl (14.0-17.9); LYMPHOCYTES # (AUTO) 0.4 X10'3 (1.1-4.8); LYMPHOCYTES % (AUTO) 1.7 % (21-51); MEAN CORPUSCULAR HEMOGLOBIN 30.4 PG (27.0-31.0); MEAN CORPUSCULAR HGB CONC 33.8 g/dL (33.0-36.5); MEAN PLATELET VOLUME 7.7 FL (7.4-10.4); MONOCYTES % (AUTO) 4.5 % (2-12); NEUTROPHILS # (AUTO) 21.3 X10'3 (1.8-7.7); NEUTROPHILS % (AUTO) 93.6 % (42-75); PLATELET COUNT 374 X10'3 (140-440); RED BLOOD COUNT 2.76 X10'6 (4.70-6.10); RED CELL DISTRIBUTION WIDTH 17.2 % (11.5-14.5); WHITE BLOOD COUNT 22.7 X10'3 (4.5-11.0)
[2020-09-11 02:50] LABS: ABG BASE EXCESS 1.2 mmol/L (-2.0-2.0); ABG OXYGEN SATURATION 96.4 % (94-97); ABG PCO2 (T) 36.4 mmHg (35.0-48.0); ABG PO2 (T) 105.5 mmHg (75.0-100.0); ALLEN'S TEST POSITIVE; FCOHb 0.3 % (0.0-3.9); FMetHb 0.3 % (0.0-1.5); FO2Hb 95.8 % (94-97); PEEP 5 cm H2O; RESPIRATORY RATE 14 b/min; TIDAL VOLUME 450 mL; TOTAL HEMOGLOBIN 8.5 G/dl (14.0-18.0)
[2020-09-11 02:54] LABS: ALANINE AMINOTRANSFERASE 25 U/L (12-78); ALBUMIN 1.9 G/DL (3.4-5.0); ALBUMIN/GLOBULIN RATIO 0.7 (1.1-1.5); ALKALINE PHOSPHATASE 91 IU/L (46-116); ANION GAP 8 (8-16); ASPARTATE AMINO TRANSFERASE 13 U/L (10-37); BILIRUBIN,TOTAL 0.6 MG/DL (0.1-1.0); BLOOD UREA NITROGEN 25 MG/DL (7-18); BUN/CREATININE RATIO 8.3 (5.4-32.0); CALCIUM 6.8 MG/DL (8.5-10.1); CHLORIDE 105 MMOL/L (99-107); CREATININE 3.03 MG/DL (0.60-1.10); GLUCOSE 149 MG/DL (70-104); MAGNESIUM 1.5 MG/DL (1.5-2.4); PHOSPHORUS 3.8 MG/DL (2.3-4.5); SODIUM 141 MMOL/L (135-145); TOTAL CARBON DIOXIDE 28.3 MMOL/L (24-32); TOTAL PROTEIN 4.5 G/DL (6.4-8.2); eGFR 20 ML/MIN
[2020-09-11] MEDS: FENTANYL-0.9 % NACL/PF 100 ML IV PRN ×3 (05:56→18:39)
--- NOTE | 2020-09-11 06:00 | NUR ---
Patient in room ICU 2041. I have received report from jovana HILL and had the opportunity to ask questions and assume patient care.
[2020-09-11] MEDS: K and/or MAG REPLACEMENT MC SCH ×2 (08:00→20:00)
[2020-09-11] MEDS: famotidine/PF 10 mg/ml inj IV SCH ×2 (08:23→20:48)
[2020-09-11] MEDS: lactobacillus rhamnosus 10,000 MMU CELLS/CAPSULE PO SCH ×2 (08:23→20:47)
[2020-09-11] MEDS: piperacillin/tazo 3.375gm/50ml 50 ML IV SCH ×2 (08:23→20:50)
--- NOTE | 2020-09-11 09:59 | NUR ---
performed patient's wet to moist dressing change. photos in paper chart. will continue to monitor.
--- NOTE | 2020-09-11 11:24 | NUR ---
F/u 09/11: Pt continues to have only serosanguineous output from Ileostomy w/ no significant output at this time per RN. Per KUB 09/06 pt has Ileus w/ hypoactive bowel sounds today per RN. No nutrition since 09/05 PM when GI issues first started. RD d/w RN regarding recommending TPN as well as repeat GI imaging IF MD agreeable given prior Ileus 09/06 per KUB; day 6 no nutrition w/ significant wound healing needs on HD. IF PN; custom on HD w/ recs below to meet protein needs. Will continue to monitor. Rec: 1. IF TPN; consider custom PN on HD given protein needs using 1500ml 10%AA, 500ml D70, 100ml 20% intralipids. To provide total volume of 2100ml/day, 150g AA, 350g DEX(3.27mg/kg/min), 20g lipids, and 1990 total kcals. 2. IF TF restart; Vital High Protein at 85ml/hr. Water flush per MD d/t HD. If able to provide water flushes w/ EN on HD recommend Yao BID for wound healing needs 3. PALB Q /; daily wts 4. bowel care per rx; consider opioid antagonist as medically indicated 5. Ileostomy diet ed once stable s/p extubation Addendum: 09/11/20 at [address] Amended: Links added. Addendum: 09/12/20 at [address] F/u 09/12: CORRECTION: Pt has been receiving trickle TF past 2 days per RN currently at 20ml/hr from 10ml/hr yesterday. NENITA d/w surgeon via TC regarding no significant Ileostomy output w/ trickle EN, prior Ileus per KUB 09/06, and TPN recs. No significant nutrition day 7. Pending family discussion at this time per surgeon. Will continue to monitor. Rec: 1. IF TPN; consider custom PN on HD given protein needs using 1500ml 10%AA, 500ml D70, 100ml 20% intralipids. To provide total volume of 2100ml/day, 150g AA, 350g DEX(3.27mg/kg/min), 20g lipids, and 1990 total kcals. 2. Trickle TF Vital High Protein at 20ml/hr currently providing 480kcal, 480ml volume, 403ml free water, and 42g protein at this time. Goal rate Vital High Protein at 85ml/hr. Water flush per MD d/t HD. If able to provide water flushes w/ EN on HD recommend Yao BID for wound healing needs 3. Hold EN at first sign of intolerance or if Ileus persists 4. PALB Q /; daily wts 5. bowel care per rx; consider opioid antagonist as medically indicated 6. Ileostomy diet ed once stable s/p extubation
[2020-09-11] MEDS: insulin glargine (Lantus) pen - multi-dose SQ SCH (21:00)
[2020-09-12] VITALS (24 sets, daily range): BP systolic 85–150; BP diastolic 48–86
[2020-09-12] MEDS: hydrocortisone sod succ/PF 100mg/2ml inj. IV SCH ×3 (01:37→17:47)
[2020-09-12] MEDS: mineral oil/petrolatum ophthal oint EACHEYE SCH ×4 (02:00→20:33)
[2020-09-12 03:10] LABS: BASOPHILS # (AUTO) 0.1 X10'3 (0-0.2); BASOPHILS % (AUTO) 0.2 % (0-1); EOSINOPHILS % (AUTO) 0 % (0-6); HEMATOCRIT 26.3 % (42.0-52.0); HEMOGLOBIN 8.4 g/dl (14.0-17.9); LYMPHOCYTES # (AUTO) 0.6 X10'3 (1.1-4.8); LYMPHOCYTES % (AUTO) 2.8 % (21-51); MEAN CORPUSCULAR HGB CONC 32.1 g/dL (33.0-36.5); MEAN CORPUSCULAR VOLUME 90.2 FL (78-98); MEAN PLATELET VOLUME 7.6 FL (7.4-10.4); MONOCYTES # (AUTO) 1.1 X10'3 (0-0.9); NEUTROPHILS # (AUTO) 19.4 X10'3 (1.8-7.7); PLATELET COUNT 466 X10'3 (140-440); RED BLOOD COUNT 2.91 X10'6 (4.70-6.10); RED CELL DISTRIBUTION WIDTH 17.3 % (11.5-14.5); WHITE BLOOD COUNT 21.1 X10'3 (4.5-11.0)
[2020-09-12] MEDS: FENTANYL-0.9 % NACL/PF 100 ML IV PRN ×3 (03:20→19:01)
[2020-09-12] MEDS: midazolam 100mg in NS 100ml 100 ML IV PRN (03:24)
[2020-09-12 03:29] LABS: ALANINE AMINOTRANSFERASE 26 U/L (12-78); ALBUMIN/GLOBULIN RATIO 0.7 (1.1-1.5); ALKALINE PHOSPHATASE 93 IU/L (46-116); ANION GAP 6 (8-16); ASPARTATE AMINO TRANSFERASE 13 U/L (10-37); BILIRUBIN,TOTAL 0.5 MG/DL (0.1-1.0); BLOOD UREA NITROGEN 39 MG/DL (7-18); BUN/CREATININE RATIO 9.8 (5.4-32.0); CALCIUM 6.8 MG/DL (8.5-10.1); CHLORIDE 104 MMOL/L (99-107); GLUCOSE 150 MG/DL (70-104); MAGNESIUM 1.7 MG/DL (1.5-2.4); PHOSPHORUS 4.5 MG/DL (2.3-4.5); SODIUM 137 MMOL/L (135-145); TOTAL CARBON DIOXIDE 27.3 MMOL/L (24-32); TOTAL PROTEIN 4.7 G/DL (6.4-8.2); eGFR 15 ML/MIN
[2020-09-12 03:35] LABS: ABG BASE EXCESS -1.9 mmol/L (-2.0-2.0); ABG HCO3 21.5 mmol/L (22.0-26.0); ABG OXYGEN SATURATION 95.2 % (94-97); ABG PCO2 (T) 29.9 mmHg (35.0-48.0); ALLEN'S TEST POSITIVE; FCOHb 0.3 % (0.0-3.9); FMetHb 0.3 % (0.0-1.5); FO2Hb 94.6 % (94-97); PATIENT TEMPERATURE 35.8; PEEP 5 cm H2O; RESPIRATORY RATE 14 b/min; TIDAL VOLUME 450 mL; TOTAL HEMOGLOBIN 9.1 G/dl (14.0-18.0)
[2020-09-12] MEDS: K and/or MAG REPLACEMENT MC SCH ×2 (08:00→20:00)
[2020-09-12] MEDS: piperacillin/tazo 3.375gm/50ml 50 ML IV SCH ×2 (08:14→20:33)
[2020-09-12] MEDS: famotidine/PF 10 mg/ml inj IV SCH ×2 (08:14→20:33)
[2020-09-12] MEDS: lactobacillus rhamnosus 10,000 MMU CELLS/CAPSULE PO SCH ×2 (08:15→20:00)
--- NOTE | 2020-09-12 11:10 | NUR ---
F/u 09/12: CORRECTION: Pt has been receiving trickle TF past 2 days per RN currently at 20ml/hr from 10ml/hr yesterday. RD d/w surgeon via TC regarding no significant Ileostomy output w/ trickle EN, prior Ileus per KUB 09/06, and TPN recs. No significant nutrition day 7. Pending family discussion at this time per surgeon. Will continue to monitor. Rec: 1. IF TPN; consider custom PN on HD given protein needs using 1500ml 10%AA, 500ml D70, 100ml 20% intralipids. To provide total volume of 2100ml/day, 150g AA, 350g DEX(3.27mg/kg/min), 20g lipids, and 1990 total kcals. 2. Trickle TF Vital High Protein at 20ml/hr currently providing 480kcal, 480ml volume, 403ml free water, and 42g protein at this time. Goal rate Vital High Protein at 85ml/hr. Water flush per MD d/t HD. If able to provide water flushes w/ EN on HD recommend Yao BID for wound healing needs 3. Hold EN at first sign of intolerance or if Ileus persists 4. PALB Q /; daily wts 5. bowel care per rx; consider opioid antagonist as medically indicated 6. Ileostomy diet ed once stable s/p extubation Addendum: 09/12/20 at [address] Amended: Links added.
[2020-09-12] MEDS: NORepinephrine 8mg/ 250ml NS 250 ML IV SCH (12:12)
--- NOTE | 2020-09-12 16:30 | NUR ---
Pt had coffee ground emesis, placed to LIWS, 700 brown fluid suctioned. Same colored output in ileostomy now. Some suctioned from ETT. Dr. Rodas called. TPN ordered, tube feed cancelled, low intermittent wall suction ordered.
--- NOTE | 2020-09-12 18:19 | NUR ---
Problems reprioritized. Patient report given, questions answered & plan of care reviewed with SERGIO Krueger.
--- NOTE | 2020-09-12 18:20 | NUR ---
Patient in room ICU 2041. I have received report from SERGIO Maldonado and had the opportunity to ask questions and assume patient care. Patient is intubated and sedated, he is resting comfortably at this time, I will continue to monitor.
[2020-09-12] MEDS: insulin glargine (Lantus) pen - multi-dose SQ SCH (21:00)
[2020-09-13] VITALS (24 sets, daily range): BP systolic 80–142; BP diastolic 49–81
[2020-09-13] MEDS: hydrocortisone sod succ/PF 100mg/2ml inj. IV SCH ×2 (00:29→08:33)
[2020-09-13] MEDS: NORepinephrine 8mg/ 250ml NS 250 ML IV SCH ×2 (00:39→23:26)
[2020-09-13] MEDS: mineral oil/petrolatum ophthal oint EACHEYE SCH ×4 (02:00→21:47)
[2020-09-13 02:46] LABS: BASOPHILS # (AUTO) 0.1 X10'3 (0-0.2); BASOPHILS % (AUTO) 0.3 % (0-1); EOSINOPHILS % (AUTO) 0 % (0-6); HEMATOCRIT 26.6 % (42.0-52.0); HEMOGLOBIN 8.6 g/dl (14.0-17.9); LYMPHOCYTES # (AUTO) 0.4 X10'3 (1.1-4.8); LYMPHOCYTES % (AUTO) 1.3 % (21-51); MEAN CORPUSCULAR HEMOGLOBIN 29.2 PG (27.0-31.0); MEAN CORPUSCULAR HGB CONC 32.4 g/dL (33.0-36.5); MEAN CORPUSCULAR VOLUME 90.1 FL (78-98); MEAN PLATELET VOLUME 7.3 FL (7.4-10.4); MONOCYTES # (AUTO) 0.9 X10'3 (0-0.9); MONOCYTES % (AUTO) 2.7 % (2-12); NEUTROPHILS # (AUTO) 31.6 X10'3 (1.8-7.7); NEUTROPHILS % (AUTO) 95.7 % (42-75); PLATELET COUNT 500 X10'3 (140-440); RED BLOOD COUNT 2.95 X10'6 (4.70-6.10); RED CELL DISTRIBUTION WIDTH 17.2 % (11.5-14.5)
[2020-09-13 03:12] LABS: ALANINE AMINOTRANSFERASE 31 U/L (12-78); ALBUMIN/GLOBULIN RATIO 0.7 (1.1-1.5); ALKALINE PHOSPHATASE 106 IU/L (46-116); ANION GAP 12 (8-16); ASPARTATE AMINO TRANSFERASE 20 U/L (10-37); BILIRUBIN,TOTAL 0.7 MG/DL (0.1-1.0); BLOOD UREA NITROGEN 44 MG/DL (7-18); BUN/CREATININE RATIO 9.7 (5.4-32.0); CALCIUM 7.1 MG/DL (8.5-10.1); CHLORIDE 105 MMOL/L (99-107); CREATININE 4.53 MG/DL (0.60-1.10); GLUCOSE 115 MG/DL (70-104); MAGNESIUM 1.7 MG/DL (1.5-2.4); PHOSPHORUS 4.8 MG/DL (2.3-4.5); POTASSIUM 3.7 MMOL/L (3.5-5.1); SODIUM 145 MMOL/L (135-145); TOTAL CARBON DIOXIDE 28.4 MMOL/L (24-32); TOTAL PROTEIN 4.8 G/DL (6.4-8.2); eGFR 13 ML/MIN
[2020-09-13 03:46] LABS: ABG BASE EXCESS 3.7 mmol/L (-2.0-2.0); ABG HCO3 26.5 mmol/L (22.0-26.0); ABG OXYGEN SATURATION 96.5 % (94-97); ABG PO2 (T) 95.1 mmHg (75.0-100.0); ALLEN'S TEST POSITIVE; FCOHb 0.3 % (0.0-3.9); FMetHb 0.3 % (0.0-1.5); FO2Hb 95.9 % (94-97); PATIENT TEMPERATURE 36.4; PEEP 5 cm H2O; RESPIRATORY RATE 12 b/min; TIDAL VOLUME 450 mL; TOTAL HEMOGLOBIN 8.9 G/dl (14.0-18.0)
[2020-09-13 04:09] LABS: ANISOCYTOSIS 1+; PLATELET ESTIMATE INCREASED; TOTAL CELLS COUNTED 100
--- NOTE | 2020-09-13 06:30 | NUR ---
Patient in room ICU 2041. I have received report from Pati HILL and had the opportunity to ask questions and assume patient care.
[2020-09-13] MEDS ORDERED: heparin 1,000 units/ml 10ml inj HE ONE ×2 (07:50)
[2020-09-13] MEDS ORDERED: epoetin 20,000 units/ml inj IV ONE (07:50)
[2020-09-13] MEDS ORDERED: normal saline 1000ml 250 ML IV PRN (07:50)
[2020-09-13] MEDS ORDERED: heparin 1,000unit/ml 10ml vial 10 ML IV ONE (07:50)
[2020-09-13] MEDS: K and/or MAG REPLACEMENT MC SCH ×2 (08:00→20:00)
[2020-09-13] MEDS: lactobacillus rhamnosus 10,000 MMU CELLS/CAPSULE PO SCH ×2 (08:00→20:00)
[2020-09-13] MEDS: piperacillin/tazo 3.375gm/50ml 50 ML IV SCH ×2 (08:33→21:46)
[2020-09-13] MEDS: famotidine/PF 10 mg/ml inj IV SCH ×2 (08:33→21:46)
[2020-09-13] MEDS: FENTANYL-0.9 % NACL/PF 100 ML IV PRN ×2 (09:48→21:46)
--- NOTE | 2020-09-13 11:15 | NUR ---
TPN Consult: Pt -1500 coffee ground emesis via OG last night w/ TF now off per RN. Pending new KUB today per MD. TPN to start today per surgeon; slate picker shaina w/ custom PN since pt receiving HD. RD collaborated w/ clinical pharmacist regarding recs below; micronutrients specifically per slate picker recs since on HD. Will monitor for TPN tolerance and signs of refeeding syndrome given higher risk at this time. Rec: 1. Custom TPN per slate picker on HD given protein needs using 1500ml 10%AA, 500ml D70, and 100ml 20% intralipids to run at 87.5ml/hr goal. To provide total volume of 2100ml/day, 150g AA, 350g DEX(3.27mg/kg/min), 20g lipids, and 1990 total kcals. 2. Initiate TPN at 30ml/hr and advance Q12 to goal as tolerated 3. Micronutrients per slate picker recs on HD 4. PALB Q /; daily wts 5. monitor for TPN tolerance and signs of refeeding syndrome 6. bowel care per rx Addendum: 09/13/20 at [address] Amended: Links added.
[2020-09-13 11:18] LABS: HBSAG SCREEN NEGATIVE
[2020-09-13] MEDS ORDERED: Dextrose 10%-water IV solution 1,000 ML IV PRN (12:10)
--- NOTE | 2020-09-13 14:46 | NUR ---
Informed Dr. Angel of the patients KUB results, stated to keep him OG suction. No other new orders at this time
[2020-09-13] MEDS: midazolam 100mg in NS 100ml 100 ML IV PRN (14:53)
--- NOTE | 2020-09-13 18:25 | NUR ---
Patient in room ICU 2041. I have received report from Magaly HILL and had the opportunity to ask questions and assume patient care.
[2020-09-13] MEDS: insulin glargine (Lantus) pen - multi-dose SQ SCH (20:53)
[2020-09-13] MEDS: diatr meglu/diatrizoate 30ml oral sol.-(3 dose) bottle PO SCH (21:46)
[2020-09-13] MEDS: TOTAL PARENTERAL NUTRITION IV SCH ×9 (21:47)
[2020-09-13] MEDS: [UNRECOGNIZED DRUG - OTHER] IV SCH ×9 (21:47)
[2020-09-13] MEDS: CALCIUM GLUCONATE IV SCH ×9 (21:47)
[2020-09-14] VITALS (23 sets, daily range): BP systolic 83–124; BP diastolic 46–85
[2020-09-14 03:41] LABS: ABG BASE EXCESS 4.9 mmol/L (-2.0-2.0); ABG HCO3 29.2 mmol/L (22.0-26.0); ABG OXYGEN SATURATION 90.7 % (94-97); ABG PCO2 (T) 40.5 mmHg (35.0-48.0); ABG PO2 (T) 57.9 mmHg (75.0-100.0); ALLEN'S TEST POSITIVE; FCOHb 0.6 % (0.0-3.9); FMetHb 0.3 % (0.0-1.5); FO2Hb 89.9 % (94-97); PATIENT TEMPERATURE 36.1; PEEP 5 cm H2O; RESPIRATORY RATE 12 b/min; TIDAL VOLUME 450 mL; TOTAL HEMOGLOBIN 8.9 G/dl (14.0-18.0)
[2020-09-14 03:49] LABS: BASOPHILS % (AUTO) 0.1 % (0-1); EOSINOPHILS % (AUTO) 0.1 % (0-6); HEMATOCRIT 26.1 % (42.0-52.0); HEMOGLOBIN 8.3 g/dl (14.0-17.9); LYMPHOCYTES # (AUTO) 0.8 X10'3 (1.1-4.8); LYMPHOCYTES % (AUTO) 5.3 % (21-51); MEAN CORPUSCULAR HEMOGLOBIN 29.1 PG (27.0-31.0); MEAN CORPUSCULAR HGB CONC 31.7 g/dL (33.0-36.5); MEAN CORPUSCULAR VOLUME 91.7 FL (78-98); MEAN PLATELET VOLUME 7.5 FL (7.4-10.4); MONOCYTES # (AUTO) 0.8 X10'3 (0-0.9); MONOCYTES % (AUTO) 5.2 % (2-12); NEUTROPHILS # (AUTO) 14.3 X10'3 (1.8-7.7); NEUTROPHILS % (AUTO) 89.3 % (42-75); PLATELET COUNT 394 X10'3 (140-440); RED BLOOD COUNT 2.85 X10'6 (4.70-6.10); RED CELL DISTRIBUTION WIDTH 18.1 % (11.5-14.5)
[2020-09-14 03:56] LABS: ALANINE AMINOTRANSFERASE 31 U/L (12-78); ALBUMIN 1.9 G/DL (3.4-5.0); ALBUMIN/GLOBULIN RATIO 0.7 (1.1-1.5); ALKALINE PHOSPHATASE 94 IU/L (46-116); ANION GAP 6 (8-16); ASPARTATE AMINO TRANSFERASE 20 U/L (10-37); BILIRUBIN,TOTAL 0.6 MG/DL (0.1-1.0); BLOOD UREA NITROGEN 30 MG/DL (7-18); BUN/CREATININE RATIO 8.8 (5.4-32.0); CALCIUM 7.3 MG/DL (8.5-10.1); CHLORIDE 107 MMOL/L (99-107); CREATININE 3.41 MG/DL (0.60-1.10); GLUCOSE 122 MG/DL (70-104); MAGNESIUM 1.6 MG/DL (1.5-2.4); PHOSPHORUS 3.9 MG/DL (2.3-4.5); POTASSIUM 3.4 MMOL/L (3.5-5.1); PREALBUMIN 18.7 MG/DL (19-36); SODIUM 142 MMOL/L (135-145); TOTAL CARBON DIOXIDE 29.2 MMOL/L (24-32); TOTAL PROTEIN 4.5 G/DL (6.4-8.2); TRIGLYCERIDES 164 MG/DL (20-135); eGFR 18 ML/MIN
[2020-09-14] MEDS: mineral oil/petrolatum ophthal oint EACHEYE SCH ×4 (04:46→19:43)
--- NOTE | 2020-09-14 06:00 | NUR ---
Patient in room ICU 2041. I have received report from Nayeli HILL and had the opportunity to ask questions and assume patient care.
[2020-09-14] MEDS: FENTANYL-0.9 % NACL/PF 100 ML IV PRN ×2 (06:25→19:45)
[2020-09-14] MEDS: lactobacillus rhamnosus 10,000 MMU CELLS/CAPSULE PO SCH ×2 (07:10→19:59)
[2020-09-14] MEDS: diatr meglu/diatrizoate 30ml oral sol.-(3 dose) bottle PO SCH ×2 (07:11→11:01)
[2020-09-14] MEDS: piperacillin/tazo 3.375gm/50ml 50 ML IV SCH ×2 (07:11→19:43)
[2020-09-14] MEDS: famotidine/PF 10 mg/ml inj IV SCH ×2 (07:11→19:43)
[2020-09-14] MEDS: K and/or MAG REPLACEMENT MC SCH ×2 (07:11→20:00)
[2020-09-14] MEDS: midazolam 100mg in NS 100ml 100 ML IV PRN (08:27)
[2020-09-14] MEDS: insulin regular, human U-100 3ml vial - multi-dose SQ SCH ×2 (15:10→19:49)
[2020-09-14] MEDS: NORepinephrine 8mg/ 250ml NS 250 ML IV SCH (17:03)
--- NOTE | 2020-09-14 18:19 | NUR ---
Problems reprioritized. Patient report given, questions answered & plan of care reviewed with Nayeli HILL.
--- NOTE | 2020-09-14 18:20 | NUR ---
Patient in room ICU 2041. I have received report from Bianca HILL & Magaly RN and had the opportunity to ask questions and assume patient care.
[2020-09-14] MEDS: enoxaparin 30mg/0.3ml syringe SUBCUT SCH (19:44)
[2020-09-14] MEDS: insulin glargine (Lantus) pen - multi-dose SQ SCH (19:50)
[2020-09-14] MEDS: CALCIUM GLUCONATE IV SCH ×8 (23:09)
[2020-09-14] MEDS: [UNRECOGNIZED DRUG - OTHER] IV SCH ×8 (23:09)
[2020-09-14] MEDS: MAGNESIUM IV SCH ×8 (23:09)
[2020-09-15] VITALS (24 sets, daily range): BP systolic 74–147; BP diastolic 42–71
--- NOTE | 2020-09-15 02:00 | NUR ---
Patient in room ICU 2041. I have received report from Nayeli HILL and had the opportunity to ask questions and assume patient care. Some back charting done for Nayeli from her notes.
--- NOTE | 2020-09-15 02:00 | NUR ---
Problems reprioritized. Patient report given, questions answered & plan of care reviewed with NATE HILL.
[2020-09-15 02:47] LABS: BASOPHILS # (AUTO) 0.1 X10'3 (0-0.2); BASOPHILS % (AUTO) 0.3 % (0-1); EOSINOPHILS % (AUTO) 0.1 % (0-6); HEMATOCRIT 24.1 % (42.0-52.0); HEMOGLOBIN 7.7 g/dl (14.0-17.9); LYMPHOCYTES # (AUTO) 0.6 X10'3 (1.1-4.8); LYMPHOCYTES % (AUTO) 4.2 % (21-51); MEAN CORPUSCULAR HEMOGLOBIN 29.3 PG (27.0-31.0); MEAN CORPUSCULAR HGB CONC 31.8 g/dL (33.0-36.5); MEAN CORPUSCULAR VOLUME 92.1 FL (78-98); MEAN PLATELET VOLUME 7.9 FL (7.4-10.4); MONOCYTES # (AUTO) 0.9 X10'3 (0-0.9); MONOCYTES % (AUTO) 5.8 % (2-12); NEUTROPHILS # (AUTO) 13.6 X10'3 (1.8-7.7); NEUTROPHILS % (AUTO) 89.6 % (42-75); PLATELET COUNT 321 X10'3 (140-440); RED BLOOD COUNT 2.62 X10'6 (4.70-6.10); RED CELL DISTRIBUTION WIDTH 18.7 % (11.5-14.5); WHITE BLOOD COUNT 15.2 X10'3 (4.5-11.0)
[2020-09-15] MEDS: mineral oil/petrolatum ophthal oint EACHEYE SCH ×4 (02:53→22:39)
[2020-09-15] MEDS: insulin regular, human U-100 3ml vial - multi-dose SQ SCH ×3 (02:53→21:08)
[2020-09-15 02:55] LABS: ABG BASE EXCESS 3.1 mmol/L (-2.0-2.0); ABG HCO3 26.8 mmol/L (22.0-26.0); ABG PCO2 (T) 37.4 mmHg (35.0-48.0); ABG PO2 (T) 104.5 mmHg (75.0-100.0); ALLEN'S TEST POSITIVE; FCOHb 0.2 % (0.0-3.9); FMetHb 0.3 % (0.0-1.5); FO2Hb 96.5 % (94-97); PATIENT TEMPERATURE 37.1; PEEP 5 cm H2O; RESPIRATORY RATE 12 b/min; TIDAL VOLUME 450 mL; TOTAL HEMOGLOBIN 8.6 G/dl (14.0-18.0)
[2020-09-15 02:55] LABS: ALANINE AMINOTRANSFERASE 27 U/L (12-78); ALBUMIN 1.7 G/DL (3.4-5.0); ALBUMIN/GLOBULIN RATIO 0.7 (1.1-1.5); ALKALINE PHOSPHATASE 76 IU/L (46-116); ANION GAP 6 (8-16); ASPARTATE AMINO TRANSFERASE 12 U/L (10-37); BILIRUBIN,TOTAL 0.4 MG/DL (0.1-1.0); BLOOD UREA NITROGEN 55 MG/DL (7-18); CALCIUM 7.2 MG/DL (8.5-10.1); CHLORIDE 107 MMOL/L (99-107); CREATININE 4.24 MG/DL (0.60-1.10); GLUCOSE 109 MG/DL (70-104); MAGNESIUM 1.4 MG/DL (1.5-2.4); PHOSPHORUS 3.6 MG/DL (2.3-4.5); POTASSIUM 3.3 MMOL/L (3.5-5.1); SODIUM 144 MMOL/L (135-145); TOTAL CARBON DIOXIDE 30.8 MMOL/L (24-32); TOTAL PROTEIN 4.2 G/DL (6.4-8.2); eGFR 14 ML/MIN
--- NOTE | 2020-09-15 06:13 | NUR ---
Problems reprioritized. Patient report given, questions answered & plan of care reviewed with Magaly HILL.
--- NOTE | 2020-09-15 06:30 | NUR ---
Patient in room ICU 2041. I have received report from Libra HILL and had the opportunity to ask questions and assume patient care.
[2020-09-15] MEDS: NORepinephrine 8mg/ 250ml NS 250 ML IV SCH (07:27)
[2020-09-15] MEDS: midazolam 100mg in NS 100ml 100 ML IV PRN (07:27)
[2020-09-15] MEDS ORDERED: normal saline 1000ml 250 ML IV PRN (08:00)
[2020-09-15] MEDS ORDERED: epoetin 20,000 units/ml inj IV ONE (08:00)
[2020-09-15] MEDS ORDERED: heparin 1,000 units/ml 10ml inj HE ONE ×2 (08:00)
[2020-09-15] MEDS: lactobacillus rhamnosus 10,000 MMU CELLS/CAPSULE PO SCH ×2 (08:00→21:17)
[2020-09-15] MEDS ORDERED: heparin 1,000unit/ml 10ml vial 10 ML IV ONE (08:00)
[2020-09-15] MEDS: famotidine/PF 10 mg/ml inj IV SCH ×2 (08:54→21:06)
[2020-09-15] MEDS: K and/or MAG REPLACEMENT MC SCH ×2 (08:58→20:00)
[2020-09-15] MEDS: piperacillin/tazo 3.375gm/50ml 50 ML IV SCH ×2 (10:51→21:05)
[2020-09-15] MEDS: Dakins solution (1/4 strength) 473ml solution TP SCH ×2 (11:13→21:17)
--- NOTE | 2020-09-15 11:57 | NUR ---
Reassessment: Pt remains intubated and receiving custom TPN for nutrition. K 3.3 and mag 1.4 today, not to be replaced per MD at critical care rounds. Pt continues with dialysis. Pt s/p CT 09/14 which showed multiple loops of abnormally dilated small bowel are consistent with at least a partial mid SBO per report. LBM 09/14 documented with 285 mL stool output per I&O. No changes to nutrition intervention at this time. Will continue to follow closely. Rec: 1. Custom TPN per rn team leader on HD given protein needs using 1500ml 10%AA, 500ml D70, and 100ml 20% intralipids to run at 87.5ml/hr goal. To provide total volume of 2100ml/day, 150g AA, 350g DEX(3.27mg/kg/min), 20g lipids, and 1990 total kcals. 2. Initiate TPN at 30ml/hr and advance Q12 to goal as tolerated 3. Micronutrients per rn team leader recs on HD 4. PALB Q /; daily wts 5. monitor for TPN tolerance and signs of refeeding syndrome 6. bowel care per rx Addendum: 09/15/20 at [address] Amended: Links added.
--- NOTE | 2020-09-15 18:04 | NUR ---
Problems reprioritized. Patient report given, questions answered & plan of care reviewed with .
--- NOTE | 2020-09-15 18:30 | NUR ---
Patient in room ICU 2041. I have received report from Magaly HILL and had the opportunity to ask questions and assume patient care.
[2020-09-15] MEDS: enoxaparin 30mg/0.3ml syringe SUBCUT SCH (21:06)
[2020-09-15] MEDS: insulin glargine (Lantus) pen - multi-dose SQ SCH (21:09)
[2020-09-15] MEDS ORDERED: fentaNYL/PF 50MCG/1 ML 2ML syringe IV PRN (21:40)
[2020-09-15] MEDS: FENTANYL-0.9 % NACL/PF 100 ML IV PRN (22:33)
[2020-09-15] MEDS: [UNRECOGNIZED DRUG - OTHER] IV SCH ×8 (22:36)
[2020-09-15] MEDS: CALCIUM GLUCONATE IV SCH ×8 (22:36)
[2020-09-15] MEDS: MAGNESIUM IV SCH ×8 (22:36)
[2020-09-16] VITALS (25 sets, daily range): BP systolic 87–157; BP diastolic 44–75
[2020-09-16] MEDS ORDERED: DOPamine 400mg/D5W 250ml 250 ML IV PRN (00:10)
[2020-09-16] MEDS: mineral oil/petrolatum ophthal oint EACHEYE SCH ×4 (02:45→20:19)
[2020-09-16] MEDS: insulin regular, human U-100 3ml vial - multi-dose SQ SCH ×3 (02:46→22:13)
[2020-09-16] MEDS: midazolam 100mg in NS 100ml 100 ML IV PRN ×2 (02:53→18:40)
[2020-09-16 03:30] LABS: ABG BASE EXCESS 1.9 mmol/L (-2.0-2.0); ABG HCO3 26.7 mmol/L (22.0-26.0); ABG OXYGEN SATURATION 96.7 % (94-97); ABG PCO2 (T) 40.4 mmHg (35.0-48.0); ABG PO2 (T) 91.5 mmHg (75.0-100.0); ALLEN'S TEST POSITIVE; FCOHb 0.4 % (0.0-3.9); FMetHb 0.3 % (0.0-1.5); PATIENT TEMPERATURE 35.7; PEEP 5 cm H2O; RESPIRATORY RATE 12 b/min; TIDAL VOLUME 450 mL; TOTAL HEMOGLOBIN 9.4 G/dl (14.0-18.0)
[2020-09-16 03:44] LABS: PARTIAL THROMBOPLASTIN TIME 35 SECONDS (22-32)
[2020-09-16 03:47] LABS: BASOPHILS % (AUTO) 0.3 % (0-1); EOSINOPHILS # (AUTO) 0.1 X10'3 (0-0.9); EOSINOPHILS % (AUTO) 0.5 % (0-6); HEMOGLOBIN 9.1 g/dl (14.0-17.9); LYMPHOCYTES # (AUTO) 0.7 X10'3 (1.1-4.8); LYMPHOCYTES % (AUTO) 3.7 % (21-51); MEAN CORPUSCULAR HEMOGLOBIN 30.4 PG (27.0-31.0); MEAN CORPUSCULAR HGB CONC 32.6 g/dL (33.0-36.5); MEAN CORPUSCULAR VOLUME 93.3 FL (78-98); MEAN PLATELET VOLUME 8.2 FL (7.4-10.4); MONOCYTES # (AUTO) 1.1 X10'3 (0-0.9); MONOCYTES % (AUTO) 6.4 % (2-12); NEUTROPHILS # (AUTO) 15.6 X10'3 (1.8-7.7); NEUTROPHILS % (AUTO) 89.1 % (42-75); PLATELET COUNT 302 X10'3 (140-440); WHITE BLOOD COUNT 17.5 X10'3 (4.5-11.0)
[2020-09-16 04:00] LABS: GLUCOSE 109 MG/DL (70-104); SODIUM 141 MMOL/L (135-145)
[2020-09-16 04:01] LABS: ALANINE AMINOTRANSFERASE 27 U/L (12-78); ALBUMIN 1.8 G/DL (3.4-5.0); ALBUMIN/GLOBULIN RATIO 0.6 (1.1-1.5); ALKALINE PHOSPHATASE 85 IU/L (46-116); ANION GAP 8 (8-16); ASPARTATE AMINO TRANSFERASE 12 U/L (10-37); BILIRUBIN,TOTAL 0.5 MG/DL (0.1-1.0); BLOOD UREA NITROGEN 50 MG/DL (7-18); BUN/CREATININE RATIO 16.9 (5.4-32.0); CALCIUM 7.8 MG/DL (8.5-10.1); CHLORIDE 104 MMOL/L (99-107); CREATININE 2.95 MG/DL (0.60-1.10); MAGNESIUM 1.5 MG/DL (1.5-2.4); PHOSPHORUS 2.4 MG/DL (2.3-4.5); TOTAL CARBON DIOXIDE 28.8 MMOL/L (24-32); TOTAL PROTEIN 4.7 G/DL (6.4-8.2); TRIGLYCERIDES 60 MG/DL (20-135); eGFR 21 ML/MIN
[2020-09-16 04:02] LABS: POTASSIUM 2.9 MMOL/L (3.5-5.1)
[2020-09-16] MEDS: NORepinephrine 8mg/ 250ml NS 250 ML IV SCH ×2 (04:17→21:54)
--- NOTE | 2020-09-16 06:28 | NUR ---
Problems reprioritized. Patient report given, questions answered & plan of care reviewed with Gelacio HILL.
[2020-09-16] MEDS: piperacillin/tazo 3.375gm/50ml 50 ML IV SCH ×2 (07:31→20:18)
[2020-09-16] MEDS: famotidine/PF 10 mg/ml inj IV SCH ×2 (07:31→20:18)
[2020-09-16] MEDS: lactobacillus rhamnosus 10,000 MMU CELLS/CAPSULE PO SCH ×2 (08:00→20:00)
[2020-09-16] MEDS: K and/or MAG REPLACEMENT MC SCH ×2 (08:00→20:00)
[2020-09-16] MEDS: Dakins solution (1/4 strength) 473ml solution TP SCH ×2 (08:27→19:35)
[2020-09-16] MEDS ORDERED: potassium Cl 20 mEq/100mL bag IV ONE (09:25)
--- NOTE | 2020-09-16 10:00 | NUR ---
Dr. Angel notified of patient's potassium of 2.9; new orders received.
[2020-09-16] MEDS: FENTANYL-0.9 % NACL/PF 100 ML IV PRN ×2 (11:43→22:24)
[2020-09-16] MEDS ORDERED: fentaNYL /PF 50mcg/ml 5ml ampule ONE (14:42)
[2020-09-16] MEDS ORDERED: rocuronium 10mg/ml inj IV ONE (14:43)
[2020-09-16 14:57] LABS: BASOPHILS # (AUTO) 0.3 X10'3 (0-0.2); BASOPHILS % (AUTO) 1.5 % (0-1); EOSINOPHILS # (AUTO) 0.2 X10'3 (0-0.9); EOSINOPHILS % (AUTO) 0.8 % (0-6); HEMATOCRIT 29.8 % (42.0-52.0); HEMOGLOBIN 9.6 g/dl (14.0-17.9); LYMPHOCYTES # (AUTO) 0.9 X10'3 (1.1-4.8); LYMPHOCYTES % (AUTO) 4.6 % (21-51); MEAN CORPUSCULAR HEMOGLOBIN 30.1 PG (27.0-31.0); MEAN CORPUSCULAR HGB CONC 32.4 g/dL (33.0-36.5); MEAN CORPUSCULAR VOLUME 92.9 FL (78-98); MEAN PLATELET VOLUME 8.2 FL (7.4-10.4); MONOCYTES # (AUTO) 1.4 X10'3 (0-0.9); MONOCYTES % (AUTO) 7.1 % (2-12); NEUTROPHILS # (AUTO) 17.1 X10'3 (1.8-7.7); PLATELET COUNT 293 X10'3 (140-440); RED BLOOD COUNT 3.21 X10'6 (4.70-6.10); RED CELL DISTRIBUTION WIDTH 19.1 % (11.5-14.5); WHITE BLOOD COUNT 19.9 X10'3 (4.5-11.0)
[2020-09-16 15:05] LABS: CHLORIDE 104 MMOL/L (99-107); GLUCOSE 91 MG/DL (70-104); POTASSIUM 3.6 MMOL/L (3.5-5.1); SODIUM 139 MMOL/L (135-145); TOTAL CARBON DIOXIDE 28.2 MMOL/L (24-32)
[2020-09-16] MEDS ORDERED: DOPamine/D5W 400mg/250ml bag IV ONE (15:05)
[2020-09-16] MEDS ORDERED: desflurane 240ml liquid inh. IH ONE (15:05)
[2020-09-16 15:06] LABS: ALANINE AMINOTRANSFERASE 26 U/L (12-78); ALBUMIN 1.8 G/DL (3.4-5.0); ALBUMIN/GLOBULIN RATIO 0.6 (1.1-1.5); ALKALINE PHOSPHATASE 97 IU/L (46-116); ANION GAP 7 (8-16); ASPARTATE AMINO TRANSFERASE 11 U/L (10-37); BILIRUBIN,TOTAL 0.5 MG/DL (0.1-1.0); BLOOD UREA NITROGEN 61 MG/DL (7-18); BUN/CREATININE RATIO 19.4 (5.4-32.0); CREATININE 3.15 MG/DL (0.60-1.10); eGFR 19 ML/MIN
--- NOTE | 2020-09-16 15:15 | NUR ---
patient to OR
[2020-09-16 15:23] LABS: ANISOCYTOSIS 2+; HYPOCHROMASIA 1+; PLATELET ESTIMATE NORMAL; POLYCHROMASIA 1+
[2020-09-16 15:24] LABS: BURR CELLS 1+; TARGET CELLS FEW
[2020-09-16] MEDS ORDERED: pancuronium br 1mg/ml inj IV ONE (17:16)
--- NOTE | 2020-09-16 18:18 | NUR ---
Patient in room ICU 2041. I have received report from SERGIO Brizuela and had the opportunity to ask questions and assume patient care.
--- NOTE | 2020-09-16 18:20 | NUR ---
Patient arrived from OR. Patient with ET tube in place to ventilator at 25% FiO2. Patient accompanied by Dr. Rosario and Shannan HILL from OR. Report received from both. Patient with new colostomy. Stoma is red in color. Midline abdominal surgical incision with dressing in place, dressing is clean, dry and intact. Perineal debridement also done in OR, dressing clean dry intact. Patient with central line to right IJ, Scout Catheter to left IJ, New arterial line to right radial artery, Arterial line zeroed and transduced. Patient in A-fib in the 140's with frequent PVC's. Versed and Fentanyl infusing for sedation and pain management. See IV spreadsheet for rate/ bolus.
--- NOTE | 2020-09-16 18:20 | NUR ---
pt returned from OR. patient report given to oncoming RNCory
[2020-09-16 19:47] LABS: ALBUMIN 1.6 G/DL (3.4-5.0); ANION GAP 12 (8-16); BLOOD UREA NITROGEN 67 MG/DL (7-18); BUN/CREATININE RATIO 20.4 (5.4-32.0); CALCIUM 7.3 MG/DL (8.5-10.1); CHLORIDE 105 MMOL/L (99-107); CREATININE 3.29 MG/DL (0.60-1.10); GLUCOSE 269 MG/DL (70-104); MAGNESIUM 1.3 MG/DL (1.5-2.4); POTASSIUM 3.3 MMOL/L (3.5-5.1); SODIUM 139 MMOL/L (135-145); TOTAL CARBON DIOXIDE 22.3 MMOL/L (24-32); eGFR 18 ML/MIN
[2020-09-16] MEDS: enoxaparin 30mg/0.3ml syringe SUBCUT SCH (20:00)
[2020-09-16] MEDS ORDERED: potassium Cl 20mEq/100mL bag 100 ML IV ONE (20:05)
--- NOTE | 2020-09-16 20:05 | NUR ---
JALEEL Lugo called Re Potassium 3.3 and Mag 1.3. Order to replace potassium per protocol for current lab value ONCE.
--- NOTE | 2020-09-16 21:00 | NUR ---
JALEEL Lugo called re: Lovenox dose for tonight. Patient just out of surgery, patient is bleeding from posterior perineal area, bright red blood - dressing reinforced. HOLD Lovenox for tonight.
[2020-09-16] MEDS: [UNRECOGNIZED DRUG - OTHER] IV SCH ×8 (22:09)
[2020-09-16] MEDS: MAGNESIUM IV SCH ×8 (22:09)
[2020-09-16] MEDS: CALCIUM GLUCONATE IV SCH ×8 (22:09)
[2020-09-16] MEDS: insulin glargine (Lantus) pen - multi-dose SQ SCH (22:12)
--- NOTE | 2020-09-16 23:30 | NUR ---
Patient with occasional episodes of tachycardia with a rate in the 160's-170's. Blood pressure maintained during these short bursts. Perla Lugo NP made aware. Potassium of 3.3 replaced with 20 mEq IV completed. JALEEL Lugo also made aware of decrease in urine output throughout shift. Patient is a dialysis patient. No new orders at this time. Will continue to monitor.
[2020-09-17] VITALS (23 sets, daily range): BP systolic 92–142; BP diastolic 41–80
[2020-09-17] MEDS: mineral oil/petrolatum ophthal oint EACHEYE SCH ×4 (03:00→20:43)
[2020-09-17] MEDS: insulin regular, human U-100 3ml vial - multi-dose SQ SCH ×2 (03:07→07:48)
[2020-09-17 03:11] LABS: BASOPHILS # (AUTO) 0.1 X10'3 (0-0.2); BASOPHILS % (AUTO) 0.6 % (0-1); EOSINOPHILS % (AUTO) 0 % (0-6); HEMATOCRIT 22.8 % (42.0-52.0); HEMOGLOBIN 7.4 g/dl (14.0-17.9); LYMPHOCYTES # (AUTO) 0.2 X10'3 (1.1-4.8); LYMPHOCYTES % (AUTO) 0.7 % (21-51); MEAN CORPUSCULAR HEMOGLOBIN 29.8 PG (27.0-31.0); MEAN CORPUSCULAR HGB CONC 32.3 g/dL (33.0-36.5); MEAN CORPUSCULAR VOLUME 92.4 FL (78-98); MEAN PLATELET VOLUME 8.2 FL (7.4-10.4); MONOCYTES # (AUTO) 0.7 X10'3 (0-0.9); MONOCYTES % (AUTO) 3.4 % (2-12); NEUTROPHILS % (AUTO) 95.3 % (42-75); PLATELET COUNT 246 X10'3 (140-440); RED BLOOD COUNT 2.47 X10'6 (4.70-6.10)
[2020-09-17 03:31] LABS: ABG BASE EXCESS -4.7 mmol/L (-2.0-2.0); ABG HCO3 18.9 mmol/L (22.0-26.0); ABG OXYGEN SATURATION 95.8 % (94-97); ABG PCO2 (T) 29.3 mmHg (35.0-48.0); ABG PO2 (T) 89.3 mmHg (75.0-100.0); FCOHb 0.1 % (0.0-3.9); FMetHb 0.3 % (0.0-1.5); FO2Hb 95.4 % (94-97); PATIENT TEMPERATURE 37.1; PEEP 5 cm H2O; RESPIRATORY RATE 12 b/min; TIDAL VOLUME 450 mL; TOTAL HEMOGLOBIN 7.8 G/dl (14.0-18.0)
[2020-09-17 03:33] LABS: ALANINE AMINOTRANSFERASE 22 U/L (12-78); ALBUMIN 1.4 G/DL (3.4-5.0); ALBUMIN/GLOBULIN RATIO 0.5 (1.1-1.5); ALKALINE PHOSPHATASE 81 IU/L (46-116); ANION GAP 11 (8-16); ASPARTATE AMINO TRANSFERASE 12 U/L (10-37); BILIRUBIN,TOTAL 0.5 MG/DL (0.1-1.0); BLOOD UREA NITROGEN 77 MG/DL (7-18); BUN/CREATININE RATIO 22.4 (5.4-32.0); CALCIUM 7.4 MG/DL (8.5-10.1); CHLORIDE 104 MMOL/L (99-107); CREATININE 3.44 MG/DL (0.60-1.10); GLUCOSE 366 MG/DL (70-104); MAGNESIUM 1.4 MG/DL (1.5-2.4); PHOSPHORUS 2.6 MG/DL (2.3-4.5); POTASSIUM 4.1 MMOL/L (3.5-5.1); SODIUM 136 MMOL/L (135-145); TOTAL CARBON DIOXIDE 21.3 MMOL/L (24-32); TOTAL PROTEIN 4.1 G/DL (6.4-8.2); eGFR 17 ML/MIN
--- NOTE | 2020-09-17 05:00 | NUR ---
Perla Lugo, MOLDING PRESS OPERATOR at bedside. CVP 2, BP 85/31, H&H 7.4 / 22.8. Dopamine was restarted at 5 mcg/kg/min. Versed was decreased to 4 mg/ hr. ORDER for repeat hemogram at 0800.
[2020-09-17] MEDS: FENTANYL-0.9 % NACL/PF 100 ML IV PRN ×3 (05:33→19:52)
--- NOTE | 2020-09-17 06:24 | NUR ---
Problems reprioritized. Patient report given, questions answered & plan of care reviewed with SERGIO Brizuela.
[2020-09-17] MEDS: famotidine/PF 10 mg/ml inj IV SCH ×2 (07:30→20:43)
[2020-09-17 07:56] LABS: HEMATOCRIT 24.2 % (42.0-52.0); HEMOGLOBIN 7.7 g/dl (14.0-17.9); MEAN CORPUSCULAR HEMOGLOBIN 29.3 PG (27.0-31.0); MEAN CORPUSCULAR HGB CONC 31.7 g/dL (33.0-36.5); MEAN CORPUSCULAR VOLUME 92.6 FL (78-98); MEAN PLATELET VOLUME 8.5 FL (7.4-10.4); PLATELET COUNT 271 X10'3 (140-440); RED BLOOD COUNT 2.62 X10'6 (4.70-6.10); RED CELL DISTRIBUTION WIDTH 19.1 % (11.5-14.5); WHITE BLOOD COUNT 22.1 X10'3 (4.5-11.0)
[2020-09-17] MEDS: lactobacillus rhamnosus 10,000 MMU CELLS/CAPSULE PO SCH ×2 (08:00→20:00)
[2020-09-17] MEDS ORDERED: epoetin 20,000 units/ml inj IV ONE (08:00)
[2020-09-17] MEDS ORDERED: heparin 1,000unit/ml 10ml vial 10 ML IV ONE (08:00)
[2020-09-17] MEDS ORDERED: normal saline 1000ml 250 ML IV PRN (08:00)
[2020-09-17] MEDS: K and/or MAG REPLACEMENT MC SCH ×2 (08:00→20:00)
[2020-09-17] MEDS ORDERED: heparin 1,000 units/ml 10ml inj HE ONE ×2 (08:00)
[2020-09-17] MEDS: Dakins solution (1/4 strength) 473ml solution TP SCH ×2 (08:00→20:44)
[2020-09-17] MEDS: piperacillin/tazo 3.375gm/50ml 50 ML IV SCH ×2 (09:09→20:43)
[2020-09-17] MEDS: midazolam 100mg in NS 100ml 100 ML IV PRN (10:00)
[2020-09-17] MEDS: dextrose 50%-water 50ml dispensing syringe IV PRN ×2 (14:27→21:02)
--- NOTE | 2020-09-17 14:40 | NUR ---
pt's BG level was 53, 1/2 amp of D50 given and BG rechecked 15 minutes later. Current BG is 92 will continue to monitor. Notified Dr. Angel that patient's Dopamine was increased to 7mcg/kg/hr and CVP was 2; new orders received to change dopamine to norepinephrine and to administer a 500cc NS bolus.
[2020-09-17] MEDS ORDERED: normal saline 500ml IV soln 1,000 ML IV ONE (14:50)
[2020-09-17] MEDS: NORepinephrine 8mg/ 250ml NS 250 ML IV SCH (15:09)
--- NOTE | 2020-09-17 16:49 | NUR ---
rechecked patient's blood sugar and it wa
--- NOTE | 2020-09-17 16:49 | NUR ---
was 49. administered amp of d50. will repeat blood sugar. Addendum: 09/17/20 at 1713 by Ulises Mclaughlin RN Current BG is 126
--- NOTE | 2020-09-17 18:20 | NUR ---
Patient in room ICU 2041. I have received report from SERGIO Brizuela and had the opportunity to ask questions and assume patient care. Hemodialysis in progress, venetian blind assembler at bedside.
[2020-09-17] MEDS: enoxaparin 30mg/0.3ml syringe SUBCUT SCH (20:44)
[2020-09-17] MEDS: MAGNESIUM IV SCH ×8 (20:45)
[2020-09-17] MEDS: CALCIUM GLUCONATE IV SCH ×8 (20:45)
[2020-09-17] MEDS: [UNRECOGNIZED DRUG - OTHER] IV SCH ×8 (20:45)
[2020-09-17] MEDS: insulin glargine (Lantus) pen - multi-dose SQ SCH ×2 (21:00→22:37)
[2020-09-17 22:06] LABS: ALBUMIN 1.3 G/DL (3.4-5.0); ANION GAP 8 (8-16); BLOOD UREA NITROGEN 54 MG/DL (7-18); BUN/CREATININE RATIO 22.3 (5.4-32.0); CALCIUM 7.5 MG/DL (8.5-10.1); CHLORIDE 106 MMOL/L (99-107); CREATININE 2.42 MG/DL (0.60-1.10); GLUCOSE 93 MG/DL (70-104); MAGNESIUM 1.4 MG/DL (1.5-2.4); SODIUM 140 MMOL/L (135-145); TOTAL CARBON DIOXIDE 26.4 MMOL/L (24-32); eGFR 26 ML/MIN
--- NOTE | 2020-09-17 22:18 | NUR ---
Potassium 3.0. Patient with increased ectopy frequent PAC's and PVC's. October JALEEL Lugo made aware. She will review ECG. No new orders at this time.
--- NOTE | 2020-09-17 22:32 | NUR ---
Perla Lugo NP made aware of low blood glucose of 57 that was treated with 25 ml of D50. Patient had low blood glucose episodes throughout today. Advised to give Lantus per protocol now.
[2020-09-18] VITALS (28 sets, daily range): BP systolic 105–148; BP diastolic 38–60
[2020-09-18] MEDS: mineral oil/petrolatum ophthal oint EACHEYE SCH ×4 (01:48→20:30)
[2020-09-18] MEDS: FENTANYL-0.9 % NACL/PF 100 ML IV PRN ×3 (01:50→18:44)
[2020-09-18 02:53] LABS: BASOPHILS # (AUTO) 0.1 X10'3 (0-0.2); BASOPHILS % (AUTO) 0.4 % (0-1); EOSINOPHILS # (AUTO) 0.1 X10'3 (0-0.9); EOSINOPHILS % (AUTO) 0.2 % (0-6); LYMPHOCYTES # (AUTO) 0.8 X10'3 (1.1-4.8); LYMPHOCYTES % (AUTO) 3.1 % (21-51); MEAN CORPUSCULAR HEMOGLOBIN 29.4 PG (27.0-31.0); MEAN CORPUSCULAR VOLUME 91.8 FL (78-98); MEAN PLATELET VOLUME 8.3 FL (7.4-10.4); MONOCYTES # (AUTO) 2.7 X10'3 (0-0.9); MONOCYTES % (AUTO) 11.1 % (2-12); NEUTROPHILS # (AUTO) 20.9 X10'3 (1.8-7.7); NEUTROPHILS % (AUTO) 85.2 % (42-75); PLATELET COUNT 239 X10'3 (140-440); RED BLOOD COUNT 2.32 X10'6 (4.70-6.10); RED CELL DISTRIBUTION WIDTH 20.2 % (11.5-14.5); WHITE BLOOD COUNT 24.5 X10'3 (4.5-11.0)
[2020-09-18] MEDS: insulin regular, human U-100 3ml vial - multi-dose SQ SCH ×4 (02:58→20:57)
[2020-09-18 03:04] LABS: HEMATOCRIT 21.3 % (42.0-52.0); HEMOGLOBIN 6.8 g/dl (14.0-17.9)
[2020-09-18 03:25] LABS: ALANINE AMINOTRANSFERASE 24 U/L (12-78); ALBUMIN 1.3 G/DL (3.4-5.0); ALBUMIN/GLOBULIN RATIO 0.4 (1.1-1.5); ALKALINE PHOSPHATASE 87 IU/L (46-116); ANION GAP 9 (8-16); ASPARTATE AMINO TRANSFERASE 21 U/L (10-37); BILIRUBIN,TOTAL 0.7 MG/DL (0.1-1.0); BLOOD UREA NITROGEN 63 MG/DL (7-18); BUN/CREATININE RATIO 23.3 (5.4-32.0); CALCIUM 7.5 MG/DL (8.5-10.1); CHLORIDE 107 MMOL/L (99-107); GLUCOSE 97 MG/DL (70-104); MAGNESIUM 1.4 MG/DL (1.5-2.4); POTASSIUM 3.3 MMOL/L (3.5-5.1); SODIUM 139 MMOL/L (135-145); TOTAL CARBON DIOXIDE 23.4 MMOL/L (24-32); TOTAL PROTEIN 4.3 G/DL (6.4-8.2); eGFR 23 ML/MIN
[2020-09-18 03:25] LABS: ABG BASE EXCESS -2.1 mmol/L (-2.0-2.0); ABG HCO3 21.7 mmol/L (22.0-26.0); ABG OXYGEN SATURATION 96.9 % (94-97); ABG PCO2 (T) 32.2 mmHg (35.0-48.0); ABG PO2 (T) 104.5 mmHg (75.0-100.0); FMetHb 0.3 % (0.0-1.5); FO2Hb 96.6 % (94-97); PATIENT TEMPERATURE 37.1; PEEP 5 cm H2O; RESPIRATORY RATE 12 b/min; TIDAL VOLUME 450 mL; TOTAL HEMOGLOBIN 7.3 G/dl (14.0-18.0)
[2020-09-18 03:30] LABS: PHOSPHORUS 1.2 MG/DL (2.3-4.5)
--- NOTE | 2020-09-18 04:00 | NUR ---
Perla Lugo NP aware of critical lab values, Hgb 6.8 Hct 21.3, Phos 1.2. She will place orders for 1 unit of blood. No orders for replacement of Phos or K at this time.
--- NOTE | 2020-09-18 06:23 | NUR ---
Problems reprioritized. Patient report given, questions answered & plan of care reviewed with SERGIO Brizuela.
[2020-09-18 06:40] LABS: ANISOCYTOSIS 3+; LARGE PLATELETS FEW; PLATELET ESTIMATE NORMAL; POLYCHROMASIA FEW; TOTAL CELLS COUNTED 100
[2020-09-18] MEDS: midazolam 100mg in NS 100ml 100 ML IV PRN (07:02)
[2020-09-18] MEDS: famotidine/PF 10 mg/ml inj IV SCH ×2 (07:12→20:37)
[2020-09-18] MEDS: piperacillin/tazo 3.375gm/50ml 50 ML IV SCH ×2 (07:13→20:31)
[2020-09-18] MEDS: lactobacillus rhamnosus 10,000 MMU CELLS/CAPSULE PO SCH ×2 (08:00→20:00)
[2020-09-18] MEDS: K and/or MAG REPLACEMENT MC SCH ×2 (08:00→20:00)
--- NOTE | 2020-09-18 08:30 | NUR ---
dr caro notified that pt does not have bowel sounds and stool production. aware of 1 unit of PBRCs given and increased OGT output. Orders cancelled to start trickle feed.
--- NOTE | 2020-09-18 10:30 | NUR ---
Dr. Angel notified of pt received 1 unit PRBCs this AM, hemogram redraw at 12, pt does not have bowel sounds with sanguinous output. Notified MD of electrolyte deficiencies; no new orders received.
[2020-09-18] MEDS: Dakins solution (1/4 strength) 473ml solution TP SCH ×2 (10:57→20:38)
--- NOTE | 2020-09-18 11:56 | NUR ---
TF consult: D/w RN who reports pt was to start TF if pt with decreased output from OG tube however pt with 500 mL output over night. RN f/u with today, no tube feed at this time. Consult has been cancelled. Pt continues with TPN for nutrition at this time. Pt s/p Pretty, small bowel resection with ileostomy takedown, diverting colostomy placement, and perineal debridement 09/16. Absent bowel sounds at this time per physical assessment. Will continue to follow closely and make recommendations as appropriate. Rec: 1. Custom TPN per fast food crew lead on HD given protein needs using 1500ml 10%AA, 500ml D70, and 100ml 20% intralipids to run at 87.5ml/hr goal. To provide total volume of 2100ml/day, 150g AA, 350g DEX(3.27mg/kg/min), 20g lipids, and 1990 total kcals. 2. Micronutrients per fast food crew lead recs on HD 3. PALB Q /; daily wts 4. monitor for TPN tolerance and signs of refeeding syndrome 5. bowel care per rx 6. Colostomy nutrition therapy education following extubation once stable Addendum: 09/18/20 at [address] Amended: Links added.
[2020-09-18 12:34] LABS: HEMOGLOBIN 7.1 g/dl (14.0-17.9); MEAN CORPUSCULAR HEMOGLOBIN 30.3 PG (27.0-31.0); MEAN CORPUSCULAR HGB CONC 33.5 g/dL (33.0-36.5); MEAN CORPUSCULAR VOLUME 90.4 FL (78-98); MEAN PLATELET VOLUME 8.3 FL (7.4-10.4); PLATELET COUNT 197 X10'3 (140-440); RED BLOOD COUNT 2.35 X10'6 (4.70-6.10); RED CELL DISTRIBUTION WIDTH 18.9 % (11.5-14.5); WHITE BLOOD COUNT 20.9 X10'3 (4.5-11.0)
[2020-09-18 12:36] LABS: HEMATOCRIT 21.2 % (42.0-52.0)
--- NOTE | 2020-09-18 13:12 | NUR ---
Dr. Angel notified of patient's H/H 7.11/11.2. no new orders received. he stated possible blood with dialysis tomorrow.
--- NOTE | 2020-09-18 18:12 | NUR ---
Patient report given, questions answered & plan of care reviewed with Drea HILL.
--- NOTE | 2020-09-18 18:27 | NUR ---
Patient in room ICU 2041. I have received report from SERGIO Brizuela and had the opportunity to ask questions and assume patient care.
--- NOTE | 2020-09-18 18:29 | NUR ---
Patient is awake, follows commands, moves all extremities. Patient nods head "no" when asked if he is in pain. Patient is very hard of hearing and nurse must use very loud voice to communicate. Patient is intubated and the ventilator CPAP mode FiO2 25%, rate 17, Tidal volume 567. Lung sounds are clear and equal bilaterally. Bowel sounds are absent. Colostomy stoma is brick red, with dark sanguineous drainage. 24 hour urine collection in progress.
--- NOTE | 2020-09-18 18:45 | NUR ---
Patient appears restless, pulling on restraints, brow furrowed, moving legs. Patient responds with shaking his head "no" when asked if he is in pain. patient repositioned in bed. Airway suctioned. Patient continued to appear anxious and be restless. Versed drip restarted 2mg/hr with improved comfort for patient.
[2020-09-18] MEDS: enoxaparin 30mg/0.3ml syringe SUBCUT SCH (20:37)
[2020-09-18] MEDS: [UNRECOGNIZED DRUG - OTHER] IV SCH ×8 (20:38)
[2020-09-18] MEDS: CALCIUM GLUCONATE IV SCH ×8 (20:38)
[2020-09-18] MEDS: MAGNESIUM IV SCH ×8 (20:38)
[2020-09-18] MEDS: insulin glargine (Lantus) pen - multi-dose SQ SCH (20:59)
--- NOTE | 2020-09-18 21:36 | NUR ---
Patient with 5-6 second run of V-Tach. No change in blood pressure during or after event. Patient is awake and alert. Perla Lugo NP made aware. Orders placed for BMP, Mag, Phos. Strip printed viewed by provider and placed in chart.
[2020-09-18 22:13] LABS: ALBUMIN 1.2 G/DL (3.4-5.0); ANION GAP 10 (8-16); BLOOD UREA NITROGEN 81 MG/DL (7-18); BUN/CREATININE RATIO 26.1 (5.4-32.0); CALCIUM 7.5 MG/DL (8.5-10.1); CHLORIDE 107 MMOL/L (99-107); GLUCOSE 128 MG/DL (70-104); MAGNESIUM 1.3 MG/DL (1.5-2.4); PHOSPHORUS 1.5 MG/DL (2.3-4.5); POTASSIUM 3.1 MMOL/L (3.5-5.1); SODIUM 140 MMOL/L (135-145); TOTAL CARBON DIOXIDE 23.3 MMOL/L (24-32); eGFR 20 ML/MIN
[2020-09-18] MEDS ORDERED: potassium Cl 20mEq/100mL bag 100 ML IV ONE (22:20)
--- NOTE | 2020-09-18 22:20 | NUR ---
Lab results: K 3.1, Mag 1.3, Phos 1.5 called to Perla Lugo NP. Order to give 20mEq Potassium via central line once.
[2020-09-19] VITALS (28 sets, daily range): BP systolic 106–131; BP diastolic 42–60
[2020-09-19] MEDS: mineral oil/petrolatum ophthal oint EACHEYE SCH ×4 (02:48→20:41)
[2020-09-19] MEDS: insulin regular, human U-100 3ml vial - multi-dose SQ SCH ×3 (02:50→21:05)
[2020-09-19] MEDS: FENTANYL-0.9 % NACL/PF 100 ML IV PRN ×3 (03:15→20:07)
[2020-09-19 03:53] LABS: BASOPHILS % (AUTO) 0.2 % (0-1); EOSINOPHILS % (AUTO) 0.1 % (0-6); LYMPHOCYTES # (AUTO) 0.5 X10'3 (1.1-4.8); LYMPHOCYTES % (AUTO) 2.9 % (21-51); MEAN CORPUSCULAR HGB CONC 33.1 g/dL (33.0-36.5); MEAN CORPUSCULAR VOLUME 90.7 FL (78-98); MEAN PLATELET VOLUME 8.6 FL (7.4-10.4); MONOCYTES # (AUTO) 1.6 X10'3 (0-0.9); MONOCYTES % (AUTO) 9.6 % (2-12); NEUTROPHILS # (AUTO) 14.7 X10'3 (1.8-7.7); NEUTROPHILS % (AUTO) 87.2 % (42-75); PLATELET COUNT 169 X10'3 (140-440); RED BLOOD COUNT 2.25 X10'6 (4.70-6.10); RED CELL DISTRIBUTION WIDTH 19.3 % (11.5-14.5); WHITE BLOOD COUNT 16.8 X10'3 (4.5-11.0)
[2020-09-19 04:09] LABS: ALBUMIN 1.1 G/DL (3.4-5.0); ALBUMIN/GLOBULIN RATIO 0.4 (1.1-1.5); ANION GAP 12 (8-16); ASPARTATE AMINO TRANSFERASE 15 U/L (10-37); BILIRUBIN,TOTAL 1.1 MG/DL (0.1-1.0); BLOOD UREA NITROGEN 85 MG/DL (7-18); BUN/CREATININE RATIO 27.2 (5.4-32.0); CALCIUM 7.4 MG/DL (8.5-10.1); CHLORIDE 106 MMOL/L (99-107); CREATININE 3.12 MG/DL (0.60-1.10); GLUCOSE 141 MG/DL (70-104); MAGNESIUM 1.4 MG/DL (1.5-2.4); PHOSPHORUS 1.3 MG/DL (2.3-4.5); POTASSIUM 3.3 MMOL/L (3.5-5.1); SODIUM 140 MMOL/L (135-145); TOTAL CARBON DIOXIDE 22.5 MMOL/L (24-32); TOTAL PROTEIN 3.9 G/DL (6.4-8.2); eGFR 19 ML/MIN
[2020-09-19 04:10] LABS: ALANINE AMINOTRANSFERASE 23 U/L (12-78); ALKALINE PHOSPHATASE 87 IU/L (46-116)
--- NOTE | 2020-09-19 04:30 | NUR ---
Perla Lugo NP aware of critical lab results : Hgb 6.7 Hct 20.4, K 3.3, Mag 1.4. 1 unit of PRBC ordered. Per Perla Lugo NP hold unit now, request day shift RN to ask Dr. Angel if he wants the unit administered during dialysis.
[2020-09-19 04:37] LABS: HEMOGLOBIN 6.7 g/dl (14.0-17.9)
[2020-09-19 04:38] LABS: HEMATOCRIT 20.4 % (42.0-52.0)
[2020-09-19 05:01] LABS: ABG HCO3 20.2 mmol/L (22.0-26.0); ABG OXYGEN SATURATION 95.4 % (94-97); ABG PCO2 (T) 31.6 mmHg (35.0-48.0); ABG PO2 (T) 74.3 mmHg (75.0-100.0); FMetHb 0.3 % (0.0-1.5); FO2Hb 94.2 % (94-97); PATIENT TEMPERATURE 36.1; PEEP 5 cm H2O; RESPIRATORY RATE 12 b/min; TIDAL VOLUME 450 mL; TOTAL HEMOGLOBIN 7.5 G/dl (14.0-18.0)
--- NOTE | 2020-09-19 06:30 | NUR ---
Patient in room ICU 2041. I have received report from SERGIO Galan and had the opportunity to ask questions and assume patient care.
--- NOTE | 2020-09-19 06:35 | NUR ---
Problems reprioritized. Patient report given, questions answered & plan of care reviewed with SERGIO Maldonado.
[2020-09-19 07:07] LABS: UREA NITROGEN 24HR,URINE 7.2 GM/24HR (7-20)
[2020-09-19 07:30] LABS: HYPOCHROMASIA 1+; PLATELET ESTIMATE NORMAL; POLYCHROMASIA 1+
[2020-09-19 07:31] LABS: ANISOCYTOSIS 2+; TARGET CELLS 1+
[2020-09-19] MEDS: K and/or MAG REPLACEMENT MC SCH ×3 (08:00→20:00)
[2020-09-19] MEDS: piperacillin/tazo 3.375gm/50ml 50 ML IV SCH ×2 (08:33→20:41)
[2020-09-19] MEDS: famotidine/PF 10 mg/ml inj IV SCH ×2 (08:33→20:41)
[2020-09-19] MEDS: lactobacillus rhamnosus 10,000 MMU CELLS/CAPSULE PO SCH ×3 (08:33→20:41)
[2020-09-19] MEDS ORDERED: potassium Cl 20 mEq SR tablet PO PRN ×2 (10:05)
[2020-09-19] MEDS: NORepinephrine 8mg/ 250ml NS 250 ML IV SCH (10:25)
[2020-09-19] MEDS: Dakins solution (1/4 strength) 473ml solution TP SCH ×2 (14:49→20:43)
--- NOTE | 2020-09-19 15:30 | NUR ---
Wound care completed, pictures taken. Penile necrotic tissue area significantly larger than previous week. Pain controlled with Fentanyl gtt.
[2020-09-19] MEDS: potassium Cl 20mEq/100mL bag 100 ML IV PRN (17:56)
--- NOTE | 2020-09-19 18:15 | NUR ---
Patient in room ICU 2041. I have received report from SERGIO Maldonado and had the opportunity to ask questions and assume patient care.
[2020-09-19] MEDS: enoxaparin 30mg/0.3ml syringe SUBCUT SCH (20:42)
[2020-09-19] MEDS: [UNRECOGNIZED DRUG - OTHER] IV SCH ×8 (20:43)
[2020-09-19] MEDS: MAGNESIUM IV SCH ×8 (20:43)
[2020-09-19] MEDS: CALCIUM GLUCONATE IV SCH ×8 (20:43)
[2020-09-19] MEDS: insulin glargine (Lantus) pen - multi-dose SQ SCH (21:06)
[2020-09-20] VITALS (24 sets, daily range): BP systolic 120–168; BP diastolic 41–72
[2020-09-20] MEDS: mineral oil/petrolatum ophthal oint EACHEYE SCH ×4 (02:07→18:48)
[2020-09-20] MEDS: insulin regular, human U-100 3ml vial - multi-dose SQ SCH ×4 (02:09→20:02)
--- NOTE | 2020-09-20 03:11 | NUR ---
Dressing change and packing with 1/4 Dakins solution completed. Patient tolerated well. Boluses administered for pain control and comfort.
[2020-09-20 03:18] LABS: BASOPHILS # (AUTO) 0.1 X10'3 (0-0.2); BASOPHILS % (AUTO) 0.5 % (0-1); EOSINOPHILS # (AUTO) 0.1 X10'3 (0-0.9); EOSINOPHILS % (AUTO) 0.4 % (0-6); HEMATOCRIT 25.7 % (42.0-52.0); HEMOGLOBIN 8.7 g/dl (14.0-17.9); LYMPHOCYTES # (AUTO) 0.8 X10'3 (1.1-4.8); LYMPHOCYTES % (AUTO) 4.7 % (21-51); MEAN CORPUSCULAR HEMOGLOBIN 30.3 PG (27.0-31.0); MEAN CORPUSCULAR HGB CONC 33.8 g/dL (33.0-36.5); MEAN CORPUSCULAR VOLUME 89.5 FL (78-98); MEAN PLATELET VOLUME 8.7 FL (7.4-10.4); MONOCYTES # (AUTO) 1.3 X10'3 (0-0.9); MONOCYTES % (AUTO) 7.7 % (2-12); NEUTROPHILS % (AUTO) 86.7 % (42-75); PLATELET COUNT 155 X10'3 (140-440); RED BLOOD COUNT 2.87 X10'6 (4.70-6.10); RED CELL DISTRIBUTION WIDTH 17.8 % (11.5-14.5); WHITE BLOOD COUNT 17.3 X10'3 (4.5-11.0)
[2020-09-20 03:35] LABS: ABG BASE EXCESS -3.6 mmol/L (-2.0-2.0); ABG HCO3 20.4 mmol/L (22.0-26.0); ABG OXYGEN SATURATION 94.4 % (94-97); ABG PCO2 (T) 31.9 mmHg (35.0-48.0); ABG PO2 (T) 68.9 mmHg (75.0-100.0); FCOHb 0.4 % (0.0-3.9); FMetHb 0.3 % (0.0-1.5); FO2Hb 93.7 % (94-97); PATIENT TEMPERATURE 36.3; PEEP 5 cm H2O; TOTAL HEMOGLOBIN 9.4 G/dl (14.0-18.0)
[2020-09-20 03:43] LABS: ALANINE AMINOTRANSFERASE 25 U/L (12-78); ALBUMIN 1.1 G/DL (3.4-5.0); ALBUMIN/GLOBULIN RATIO 0.4 (1.1-1.5); ALKALINE PHOSPHATASE 114 IU/L (46-116); ANION GAP 13 (8-16); ASPARTATE AMINO TRANSFERASE 18 U/L (10-37); BILIRUBIN,TOTAL 1.8 MG/DL (0.1-1.0); BLOOD UREA NITROGEN 98 MG/DL (7-18); BUN/CREATININE RATIO 29.5 (5.4-32.0); CALCIUM 7.7 MG/DL (8.5-10.1); CHLORIDE 106 MMOL/L (99-107); CREATININE 3.32 MG/DL (0.60-1.10); GLUCOSE 134 MG/DL (70-104); MAGNESIUM 1.4 MG/DL (1.5-2.4); POTASSIUM 3.2 MMOL/L (3.5-5.1); SODIUM 140 MMOL/L (135-145); TOTAL PROTEIN 4.1 G/DL (6.4-8.2); TRIGLYCERIDES 91 MG/DL (20-135); eGFR 18 ML/MIN
[2020-09-20 03:50] LABS: PHOSPHORUS 0.9 MG/DL (2.3-4.5)
--- NOTE | 2020-09-20 03:52 | NUR ---
Critical Phos 0.9 called to Perla Lugo NP. No new orders at this time.
[2020-09-20] MEDS: potassium Cl 20mEq/100mL bag 100 ML IV PRN (03:58)
--- NOTE | 2020-09-20 06:14 | NUR ---
Problems reprioritized. Patient report given, questions answered & plan of care reviewed with SERGIO Maldonado.
[2020-09-20] MEDS: K and/or MAG REPLACEMENT MC SCH (08:00)
[2020-09-20] MEDS: lactobacillus rhamnosus 10,000 MMU CELLS/CAPSULE PO SCH (08:33)
[2020-09-20] MEDS: famotidine/PF 10 mg/ml inj IV SCH ×2 (08:33→19:56)
[2020-09-20] MEDS: piperacillin/tazo 3.375gm/50ml 50 ML IV SCH ×2 (08:35→19:55)
[2020-09-20] MEDS: Dakins solution (1/4 strength) 473ml solution TP SCH ×2 (08:47→20:04)
--- NOTE | 2020-09-20 11:07 | NUR ---
TF Consult: Pt s/p Ileostomy takedown and sigmoid colostomy. Trickle TF to start today per fisher mussel; recs below. Pt has ileus per RN w/ no output from either colostomy or ileostomy past 5 days and may benefit from holding EN until GI function returns. Pt Phos .9 and not to receive replacement per fisher mussel. Concerns for refeeding given receiving KCl. Will monitor for EN tolerance. Rec: 1. Trickle OGTF per MD using Vital High Protein at 10ml/hr; to provide 240ml volume, 240kcals, 202ml free water, and 21g protein. 2. Custom TPN per fisher mussel on HD given protein needs using 1500ml 10%AA, 500ml D70, and 100ml 20% intralipids to run at 87.5ml/hr goal. To provide total volume of 2100ml/day, 150g AA, 350g DEX(3.27mg/kg/min), 20g lipids, and 1990 total kcals. 2. Micronutrients per fisher mussel recs on HD 3. PALB Q /; daily wts 4. monitor for TPN/EN tolerance; consider electrolyte replacement given risk of refeeding 5. bowel care per rx; consider opioid antagonist since receiving fentanyl 6. Colostomy nutrition therapy education following extubation once stable Addendum: 09/20/20 at [address] Amended: Links added.
[2020-09-20 11:20] LABS: PREALBUMIN 11.2 MG/DL (19-36)
[2020-09-20] MEDS ORDERED: ipratropium/albuterol 3ml nebule NEB PRN (11:35)
[2020-09-20] MEDS ORDERED: naloxone 0.4 mg/ml inj IV PRN (11:35)
[2020-09-20] MEDS ORDERED: racepinephrine 11.25mg/0.5ml nebule NEB PRN (11:35)
[2020-09-20] MEDS ORDERED: CADD PCA waste documentation MC PRN (11:35)
[2020-09-20] MEDS: midazolam 100mg in NS 100ml 100 ML IV PRN (11:54)
[2020-09-20] MEDS ORDERED: POTASSIUM BICARB 20meq eff tab 20 MEQ TABLET.EFF OGT PRN ×2 (13:22)
[2020-09-20] MEDS ORDERED: dextrose ORAL solution 15 GM/59 ML bottle OGT PRN ×2 (13:23)
[2020-09-20 14:17] LABS: HEMATOCRIT 30.1 % (42.0-52.0); MEAN CORPUSCULAR HEMOGLOBIN 29.7 PG (27.0-31.0); MEAN CORPUSCULAR HGB CONC 33.1 g/dL (33.0-36.5); MEAN PLATELET VOLUME 8.6 FL (7.4-10.4); PLATELET COUNT 184 X10'3 (140-440); RED BLOOD COUNT 3.35 X10'6 (4.70-6.10); RED CELL DISTRIBUTION WIDTH 17.6 % (11.5-14.5); WHITE BLOOD COUNT 17.2 X10'3 (4.5-11.0)
[2020-09-20] MEDS: HYDROmorphone/NS 1 mg/ml CADD 50 ML IV SCH ×5 (14:27→23:00)
[2020-09-20 14:31] LABS: ALANINE AMINOTRANSFERASE 32 U/L (12-78); ALBUMIN 1.2 G/DL (3.4-5.0); ALBUMIN/GLOBULIN RATIO 0.3 (1.1-1.5); ALKALINE PHOSPHATASE 150 IU/L (46-116); ANION GAP 12 (8-16); ASPARTATE AMINO TRANSFERASE 19 U/L (10-37); BILIRUBIN,TOTAL 2.1 MG/DL (0.1-1.0); BLOOD UREA NITROGEN 101 MG/DL (7-18); BUN/CREATININE RATIO 29.7 (5.4-32.0); CHLORIDE 105 MMOL/L (99-107); GLUCOSE 153 MG/DL (70-104); POTASSIUM 3.1 MMOL/L (3.5-5.1); SODIUM 141 MMOL/L (135-145); TOTAL CARBON DIOXIDE 24.2 MMOL/L (24-32); TOTAL PROTEIN 4.7 G/DL (6.4-8.2); eGFR 18 ML/MIN
[2020-09-20 14:45] LABS: MAGNESIUM 1.5 MG/DL (1.5-2.4)
[2020-09-20] MEDS: ipratropium/albuterol 3ml nebule NEB SCH ×2 (14:47→20:34)
[2020-09-20 14:48] LABS: PHOSPHORUS 0.7 MG/DL (2.3-4.5)
[2020-09-20] MEDS ORDERED: potassium phosphate inj 30 MMOL in normal saline 500ml IV soln 500 ML IV ONE (15:25)
--- NOTE | 2020-09-20 15:26 | NUR ---
Per Jeanne replace K+ as needed and an order for a one time dose of 30mew kphos
[2020-09-20] MEDS: potassium CL 10mEq/100ml bag 100 ML IV PRN ×2 (16:09→17:19)
--- NOTE | 2020-09-20 16:31 | NUR ---
Placed 14F to left nare. Had difficulty passing NG tube to nasopharynx X4 attempts, blood sputum resulted.
--- NOTE | 2020-09-20 18:05 | NUR ---
Problems reprioritized. Patient report given, questions answered & plan of care reviewed with SERGIO Gaspar.
--- NOTE | 2020-09-20 18:10 | NUR ---
Patient in room ICU 2041. I have received report from Leigh HILL and had the opportunity to ask questions and assume patient care.
--- NOTE | 2020-09-20 18:11 | NUR ---
Problems reprioritized. Patient report given, questions answered & plan of care reviewed with SERGIO Patricia. Addendum: 09/20/20 at 1812 by Leigh Malhotra RN Chio HILL
[2020-09-20] MEDS: enoxaparin 30mg/0.3ml syringe SUBCUT SCH (19:55)
[2020-09-20] MEDS: lactobacillus rhamnosus 10,000 MMU CELLS/CAPSULE OGT SCH (19:56)
[2020-09-20] MEDS: insulin glargine (Lantus) pen - multi-dose SQ SCH (20:03)
[2020-09-20] MEDS: TOTAL PARENTERAL NUTRITION IV SCH ×9 (23:26)
[2020-09-20] MEDS: CALCIUM GLUCONATE IV SCH ×9 (23:26)
[2020-09-20] MEDS: [UNRECOGNIZED DRUG - OTHER] IV SCH ×9 (23:26)
[2020-09-21] VITALS (24 sets, daily range): BP systolic 118–185; BP diastolic 53–80
[2020-09-21] MEDS: HYDROmorphone/NS 1 mg/ml CADD 50 ML IV SCH ×11 (01:00→23:00)
[2020-09-21] MEDS: mineral oil/petrolatum ophthal oint EACHEYE SCH ×4 (02:00→20:00)
[2020-09-21] MEDS: insulin regular, human U-100 3ml vial - multi-dose SQ SCH ×4 (02:41→20:29)
[2020-09-21 02:44] LABS: BASOPHILS # (AUTO) 0.2 X10'3 (0-0.2); BASOPHILS % (AUTO) 1.1 % (0-1); EOSINOPHILS # (AUTO) 0.1 X10'3 (0-0.9); EOSINOPHILS % (AUTO) 0.4 % (0-6); HEMATOCRIT 29.2 % (42.0-52.0); HEMOGLOBIN 9.9 g/dl (14.0-17.9); LYMPHOCYTES # (AUTO) 1.6 X10'3 (1.1-4.8); LYMPHOCYTES % (AUTO) 9.7 % (21-51); MEAN CORPUSCULAR HGB CONC 33.8 g/dL (33.0-36.5); MEAN CORPUSCULAR VOLUME 88.7 FL (78-98); MEAN PLATELET VOLUME 8.1 FL (7.4-10.4); MONOCYTES % (AUTO) 5.9 % (2-12); NEUTROPHILS % (AUTO) 82.9 % (42-75); PLATELET COUNT 190 X10'3 (140-440); RED BLOOD COUNT 3.29 X10'6 (4.70-6.10); RED CELL DISTRIBUTION WIDTH 18.1 % (11.5-14.5); WHITE BLOOD COUNT 16.9 X10'3 (4.5-11.0)
[2020-09-21] MEDS: ipratropium/albuterol 3ml nebule NEB SCH ×4 (02:54→20:29)
[2020-09-21 03:00] LABS: ALANINE AMINOTRANSFERASE 39 U/L (12-78); ALBUMIN 1.2 G/DL (3.4-5.0); ALBUMIN/GLOBULIN RATIO 0.3 (1.1-1.5); ALKALINE PHOSPHATASE 215 IU/L (46-116); ANION GAP 13 (8-16); ASPARTATE AMINO TRANSFERASE 26 U/L (10-37); BLOOD UREA NITROGEN 103 MG/DL (7-18); BUN/CREATININE RATIO 29.9 (5.4-32.0); CALCIUM 8.3 MG/DL (8.5-10.1); CHLORIDE 106 MMOL/L (99-107); CREATININE 3.44 MG/DL (0.60-1.10); GLUCOSE 151 MG/DL (70-104); MAGNESIUM 1.4 MG/DL (1.5-2.4); PHOSPHORUS 1.6 MG/DL (2.3-4.5); POTASSIUM 3.2 MMOL/L (3.5-5.1); SODIUM 142 MMOL/L (135-145); TOTAL CARBON DIOXIDE 22.7 MMOL/L (24-32); TOTAL PROTEIN 4.7 G/DL (6.4-8.2); eGFR 17 ML/MIN
--- NOTE | 2020-09-21 06:18 | NUR ---
Patient in room ICU 2041. I have received report from SERGIO Gaspar and had the opportunity to ask questions and assume patient care.
[2020-09-21] MEDS: potassium Cl 20mEq/100mL bag 100 ML IV PRN (07:57)
[2020-09-21] MEDS: Dakins solution (1/4 strength) 473ml solution TP SCH ×2 (07:57→20:29)
[2020-09-21] MEDS: lactobacillus rhamnosus 10,000 MMU CELLS/CAPSULE OGT SCH ×2 (07:57→20:24)
[2020-09-21] MEDS: famotidine/PF 10 mg/ml inj IV SCH ×2 (07:57→20:24)
[2020-09-21] MEDS: piperacillin/tazo 3.375gm/50ml 50 ML IV SCH ×2 (07:59→20:23)
[2020-09-21] MEDS: K and/or MAG REPLACEMENT MC SCH (08:00)
--- NOTE | 2020-09-21 18:11 | NUR ---
Problems reprioritized. Patient report given, questions answered & plan of care reviewed with SERGIO Gaspar.
[2020-09-21] MEDS: enoxaparin 30mg/0.3ml syringe SUBCUT SCH (20:24)
[2020-09-21] MEDS: insulin glargine (Lantus) pen - multi-dose SQ SCH (20:27)
[2020-09-22] VITALS (24 sets, daily range): BP systolic 110–142; BP diastolic 55–89
[2020-09-22] MEDS: HYDROmorphone/NS 1 mg/ml CADD 50 ML IV SCH ×12 (01:00→23:00)
[2020-09-22] MEDS: mineral oil/petrolatum ophthal oint EACHEYE SCH ×2 (02:00→07:08)
[2020-09-22] MEDS: ipratropium/albuterol 3ml nebule NEB SCH ×4 (02:37→20:21)
[2020-09-22] MEDS: MAGNESIUM IV SCH ×8 (02:59)
[2020-09-22] MEDS: [UNRECOGNIZED DRUG - OTHER] IV SCH ×8 (02:59)
[2020-09-22] MEDS: CALCIUM GLUCONATE IV SCH ×8 (02:59)
[2020-09-22] MEDS: insulin regular, human U-100 3ml vial - multi-dose SQ SCH ×4 (03:01→20:58)
[2020-09-22 05:21] LABS: BASOPHILS % (AUTO) 0.1 % (0-1); EOSINOPHILS % (AUTO) 0.3 % (0-6); HEMATOCRIT 29.4 % (42.0-52.0); HEMOGLOBIN 9.8 g/dl (14.0-17.9); LYMPHOCYTES # (AUTO) 0.4 X10'3 (1.1-4.8); LYMPHOCYTES % (AUTO) 2.4 % (21-51); MEAN CORPUSCULAR HEMOGLOBIN 30.2 PG (27.0-31.0); MEAN CORPUSCULAR HGB CONC 33.5 g/dL (33.0-36.5); MEAN CORPUSCULAR VOLUME 90.2 FL (78-98); MEAN PLATELET VOLUME 8.6 FL (7.4-10.4); MONOCYTES # (AUTO) 0.9 X10'3 (0-0.9); MONOCYTES % (AUTO) 5.6 % (2-12); NEUTROPHILS # (AUTO) 14.2 X10'3 (1.8-7.7); NEUTROPHILS % (AUTO) 91.6 % (42-75); PLATELET COUNT 194 X10'3 (140-440); RED BLOOD COUNT 3.26 X10'6 (4.70-6.10); RED CELL DISTRIBUTION WIDTH 18.2 % (11.5-14.5); WHITE BLOOD COUNT 15.5 X10'3 (4.5-11.0)
[2020-09-22 05:37] LABS: ALANINE AMINOTRANSFERASE 38 U/L (12-78); ALBUMIN 1.1 G/DL (3.4-5.0); ALBUMIN/GLOBULIN RATIO 0.3 (1.1-1.5); ALKALINE PHOSPHATASE 225 IU/L (46-116); ANION GAP 17 (8-16); ASPARTATE AMINO TRANSFERASE 18 U/L (10-37); BILIRUBIN,TOTAL 1.1 MG/DL (0.1-1.0); BLOOD UREA NITROGEN 105 MG/DL (7-18); BUN/CREATININE RATIO 30.4 (5.4-32.0); CALCIUM 7.4 MG/DL (8.5-10.1); CHLORIDE 108 MMOL/L (99-107); CREATININE 3.45 MG/DL (0.60-1.10); GLUCOSE 201 MG/DL (70-104); MAGNESIUM 1.3 MG/DL (1.5-2.4); PHOSPHORUS 1.3 MG/DL (2.3-4.5); SODIUM 149 MMOL/L (135-145); TOTAL CARBON DIOXIDE 23.9 MMOL/L (24-32); TOTAL PROTEIN 4.6 G/DL (6.4-8.2); eGFR 17 ML/MIN
[2020-09-22 05:39] LABS: POTASSIUM 2.7 MMOL/L (3.5-5.1)
[2020-09-22] MEDS: potassium Cl 20mEq/100mL bag 100 ML IV PRN ×3 (05:45→08:45)
--- NOTE | 2020-09-22 06:30 | NUR ---
Patient in room ICU 2041. I have received report from Sandy HILL and had the opportunity to ask questions and assume patient care.
[2020-09-22] MEDS: K and/or MAG REPLACEMENT MC SCH (07:08)
[2020-09-22] MEDS: famotidine/PF 10 mg/ml inj IV SCH ×2 (08:16→20:47)
[2020-09-22] MEDS: Dakins solution (1/4 strength) 473ml solution TP SCH ×2 (08:17→20:48)
[2020-09-22] MEDS: lactobacillus rhamnosus 10,000 MMU CELLS/CAPSULE OGT SCH ×2 (08:17→20:47)
[2020-09-22] MEDS: piperacillin/tazo 3.375gm/50ml 50 ML IV SCH ×2 (08:17→20:47)
--- NOTE | 2020-09-22 09:00 | NUR ---
Dr. Cee at bedside with pt for examination. New orders received.
[2020-09-22] MEDS ORDERED: magnesium 4gm in 100ml NS 100 ML IV PRN (09:10)
[2020-09-22] MEDS ORDERED: HYDROmorphone inj. 0.5 MG/0.5 ML DISP.SYRIN IV PRN (09:10)
[2020-09-22] MEDS ORDERED: sodium phosphate inj. 30 MMOL in dextrose 5%-water 250 ML IV PRN (09:10)
[2020-09-22] MEDS ORDERED: Neutra Phos packet PO PRN (09:10)
[2020-09-22] MEDS ORDERED: HYDROmorphone 1 mg/ml syringe IV PRN (09:10)
--- NOTE | 2020-09-22 10:14 | NUR ---
Dr. Powers at bedside with pt for examination. Discussed concern with color of pt's stoma; Dr. Powers states that it is the same as it has been.
[2020-09-22] MEDS: magnesium 2GM in 50ml NS 50 ML IV PRN (10:34)
--- NOTE | 2020-09-22 11:40 | NUR ---
Problems reprioritized. Patient report given, questions answered & plan of care reviewed with Nayeli HILL.
[2020-09-22] MEDS: levoTHYROXINE sod inj. 100mcg/5 ml vial IV SCH (13:09)
[2020-09-22 20:03] LABS: MAGNESIUM 1.8 MG/DL (1.5-2.4); PHOSPHORUS 2.3 MG/DL (2.3-4.5)
[2020-09-22] MEDS: nystatin 15 GM powder TP SCH (20:47)
[2020-09-22] MEDS: enoxaparin 30mg/0.3ml syringe SUBCUT SCH (20:48)
[2020-09-22] MEDS: insulin glargine (Lantus) pen - multi-dose SQ SCH (21:00)
[2020-09-22] MEDS ORDERED: CALCIUM GLUCONATE IV SCH ×11 (21:00)
[2020-09-22] MEDS ORDERED: MAGNESIUM IV SCH ×11 (21:00)
[2020-09-22] MEDS ORDERED: [UNRECOGNIZED DRUG - OTHER] IV SCH ×11 (21:00)
[2020-09-23] VITALS (23 sets, daily range): BP systolic 104–133; BP diastolic 52–74
[2020-09-23] MEDS: HYDROmorphone/NS 1 mg/ml CADD 50 ML IV SCH ×12 (01:00→23:00)
[2020-09-23 02:46] LABS: BASOPHILS # (AUTO) 0.1 X10'3 (0-0.2); BASOPHILS % (AUTO) 0.5 % (0-1); EOSINOPHILS # (AUTO) 0.2 X10'3 (0-0.9); EOSINOPHILS % (AUTO) 1.2 % (0-6); HEMATOCRIT 26.9 % (42.0-52.0); HEMOGLOBIN 8.9 g/dl (14.0-17.9); LYMPHOCYTES # (AUTO) 0.7 X10'3 (1.1-4.8); LYMPHOCYTES % (AUTO) 5.1 % (21-51); MEAN CORPUSCULAR HEMOGLOBIN 29.6 PG (27.0-31.0); MEAN CORPUSCULAR HGB CONC 33.1 g/dL (33.0-36.5); MEAN CORPUSCULAR VOLUME 89.5 FL (78-98); MEAN PLATELET VOLUME 8.1 FL (7.4-10.4); MONOCYTES # (AUTO) 0.9 X10'3 (0-0.9); MONOCYTES % (AUTO) 6.3 % (2-12); NEUTROPHILS # (AUTO) 12.2 X10'3 (1.8-7.7); NEUTROPHILS % (AUTO) 86.9 % (42-75); PLATELET COUNT 203 X10'3 (140-440); RED BLOOD COUNT 3.01 X10'6 (4.70-6.10); RED CELL DISTRIBUTION WIDTH 18.3 % (11.5-14.5)
[2020-09-23] MEDS: ipratropium/albuterol 3ml nebule NEB SCH ×4 (02:56→20:29)
[2020-09-23 03:01] LABS: ALANINE AMINOTRANSFERASE 37 U/L (12-78); ALBUMIN 1.2 G/DL (3.4-5.0); ALBUMIN/GLOBULIN RATIO 0.4 (1.1-1.5); ALKALINE PHOSPHATASE 212 IU/L (46-116); ANION GAP 12 (8-16); ASPARTATE AMINO TRANSFERASE 17 U/L (10-37); BILIRUBIN,TOTAL 0.9 MG/DL (0.1-1.0); BLOOD UREA NITROGEN 115 MG/DL (7-18); BUN/CREATININE RATIO 32.3 (5.4-32.0); CALCIUM 8.1 MG/DL (8.5-10.1); CHLORIDE 113 MMOL/L (99-107); CREATININE 3.56 MG/DL (0.60-1.10); GLUCOSE 78 MG/DL (70-104); MAGNESIUM 1.7 MG/DL (1.5-2.4); PHOSPHORUS 2.1 MG/DL (2.3-4.5); SODIUM 152 MMOL/L (135-145); TOTAL CARBON DIOXIDE 27.1 MMOL/L (24-32); TOTAL PROTEIN 4.6 G/DL (6.4-8.2); TRIGLYCERIDES 100 MG/DL (20-135); eGFR 17 ML/MIN
[2020-09-23] MEDS: potassium Cl 20mEq/100mL bag 100 ML IV PRN ×2 (03:24→04:58)
--- NOTE | 2020-09-23 06:04 | NUR ---
Problems reprioritized. Patient report given, questions answered & plan of care reviewed with Nayeli HILL.
[2020-09-23] MEDS: piperacillin/tazo 3.375gm/50ml 50 ML IV SCH ×2 (07:47→21:04)
[2020-09-23] MEDS: lactobacillus rhamnosus 10,000 MMU CELLS/CAPSULE OGT SCH ×2 (07:48→21:04)
[2020-09-23] MEDS: famotidine/PF 10 mg/ml inj IV SCH ×2 (07:48→21:04)
[2020-09-23] MEDS: nystatin 15 GM powder TP SCH ×2 (07:50→21:05)
[2020-09-23] MEDS: Dakins solution (1/4 strength) 473ml solution TP SCH ×2 (07:50→21:05)
[2020-09-23] MEDS: insulin regular, human U-100 3ml vial - multi-dose SQ SCH ×3 (07:50→21:11)
[2020-09-23] MEDS: sodium phosphate inj. 15 MMOL in dextrose 5%-water 250 ML IV PRN (07:52)
--- NOTE | 2020-09-23 08:00 | NUR ---
Spoke with Mainor in pharmacy for clarification regarding Sodium Phosphate administration. Ok per Mainor to run medication at 42ml/hr over 6 hours.
--- NOTE | 2020-09-23 10:00 | NUR ---
Dr. Cee at bedside. New order to bolus NS 1000ml.
[2020-09-23] MEDS ORDERED: normal saline 1000ml 1,000 ML IV ONE (10:35)
--- NOTE | 2020-09-23 11:28 | NUR ---
Reassessment: Pt tolerating custom TPN at goal receiving electrolyte replacement per protocol. Na 152, K 3.0, and Phos up to 2.1 from prior low; pt dry receiving NS w/ plans to hydrate per trust clerk at rounds. Still no Colostomy output post-op day 8 at this point. Possible return to OR for further debridement; meeting protein needs w/ custom TPN. Will continue to monitor. Rec: 1. Custom TPN per trust clerk on HD given protein needs using 1500ml 10%AA, 500ml D70, and 100ml 20% intralipids to run at 87.5ml/hr goal. To provide total volume of 2100ml/day, 150g AA, 350g DEX(3.27mg/kg/min), 20g lipids, and 1990 total kcals. 2. Micronutrients per trust clerk recs; electrolyte replacements per protocol at this time 3. PALB Q /; daily wts 4. bowel care per rx; consider opioid antagonist since receiving PRN dilaudid and hydromorphone CADD 5. Colostomy nutrition therapy education following extubation once stable Addendum: 09/23/20 at [address] Amended: Links added.
[2020-09-23] MEDS: potassium cl 20mEq in 1/2 NS 1,000 ML IV SCH ×2 (11:49→18:00)
--- NOTE | 2020-09-23 13:30 | NUR ---
Spoke with Dr. Bustillo, notified that pt has minimal urinary output. Bladder scan performed and 5ml of urine noted. New order for renal panel at 1700, Lasix 40mg IV x1. Will continue to monitor.
--- NOTE | 2020-09-23 14:09 | NUR ---
Spoke with Mainor in pharmacy. Per pharmacist, ok to Y site TPN and NS with 20meq of K together.
[2020-09-23] MEDS ORDERED: furosemide 40mg/4ml inj IV ONE (15:40)
[2020-09-23 17:49] LABS: ALBUMIN 1.1 G/DL (3.4-5.0); ANION GAP 12 (8-16); BLOOD UREA NITROGEN 129 MG/DL (7-18); BUN/CREATININE RATIO 30.3 (5.4-32.0); CALCIUM 7.7 MG/DL (8.5-10.1); CHLORIDE 112 MMOL/L (99-107); CREATININE 4.26 MG/DL (0.60-1.10); GLUCOSE 106 MG/DL (70-104); PHOSPHORUS 2.8 MG/DL (2.3-4.5); POTASSIUM 3.9 MMOL/L (3.5-5.1); SODIUM 150 MMOL/L (135-145); TOTAL CARBON DIOXIDE 26.2 MMOL/L (24-32); eGFR 14 ML/MIN
--- NOTE | 2020-09-23 18:18 | NUR ---
Problems reprioritized. Patient report given, questions answered & plan of care reviewed with SERGIO Pino.
[2020-09-23] MEDS: MAGNESIUM IV SCH ×10 (19:18)
[2020-09-23] MEDS: [UNRECOGNIZED DRUG - OTHER] IV SCH ×10 (19:18)
[2020-09-23] MEDS: SODIUM CHLORIDE IV SCH ×10 (19:18)
[2020-09-23] MEDS: CALCIUM GLUCONATE IV SCH ×10 (19:18)
[2020-09-23] MEDS: enoxaparin 30mg/0.3ml syringe SUBCUT SCH (21:04)
[2020-09-23] MEDS: diatr meglu/diatrizoate 30ml oral sol.-(3 dose) bottle PO SCH (21:04)
[2020-09-23] MEDS: insulin glargine (Lantus) pen - multi-dose SQ SCH (21:10)
[2020-09-23] MEDS: sodium chloride 0.45% 1,000 ML IV SCH (21:36)
[2020-09-24] VITALS (23 sets, daily range): BP systolic 102–142; BP diastolic 49–83
[2020-09-24] MEDS: HYDROmorphone/NS 1 mg/ml CADD 50 ML IV SCH ×12 (01:00→23:00)
[2020-09-24] MEDS: ipratropium/albuterol 3ml nebule NEB SCH ×4 (02:11→20:32)
[2020-09-24 03:37] LABS: BASOPHILS # (AUTO) 0.1 X10'3 (0-0.2); BASOPHILS % (AUTO) 0.5 % (0-1); EOSINOPHILS # (AUTO) 0.1 X10'3 (0-0.9); EOSINOPHILS % (AUTO) 0.8 % (0-6); HEMATOCRIT 24.2 % (42.0-52.0); LYMPHOCYTES # (AUTO) 1.1 X10'3 (1.1-4.8); LYMPHOCYTES % (AUTO) 6.6 % (21-51); MEAN CORPUSCULAR HEMOGLOBIN 29.5 PG (27.0-31.0); MEAN CORPUSCULAR HGB CONC 32.9 g/dL (33.0-36.5); MEAN CORPUSCULAR VOLUME 89.8 FL (78-98); MEAN PLATELET VOLUME 8.3 FL (7.4-10.4); MONOCYTES % (AUTO) 6.4 % (2-12); NEUTROPHILS # (AUTO) 13.7 X10'3 (1.8-7.7); NEUTROPHILS % (AUTO) 85.7 % (42-75); PLATELET COUNT 200 X10'3 (140-440); RED CELL DISTRIBUTION WIDTH 18.3 % (11.5-14.5)
[2020-09-24 03:58] LABS: ALANINE AMINOTRANSFERASE 34 U/L (12-78); ALBUMIN 1.1 G/DL (3.4-5.0); ALBUMIN/GLOBULIN RATIO 0.3 (1.1-1.5); ALKALINE PHOSPHATASE 214 IU/L (46-116); ANION GAP 12 (8-16); ASPARTATE AMINO TRANSFERASE 21 U/L (10-37); BLOOD UREA NITROGEN 138 MG/DL (7-18); BUN/CREATININE RATIO 29.3 (5.4-32.0); CALCIUM 7.7 MG/DL (8.5-10.1); CHLORIDE 111 MMOL/L (99-107); CREATININE 4.71 MG/DL (0.60-1.10); GLUCOSE 82 MG/DL (70-104); MAGNESIUM 1.5 MG/DL (1.5-2.4); PHOSPHORUS 2.9 MG/DL (2.3-4.5); POTASSIUM 4.4 MMOL/L (3.5-5.1); SODIUM 150 MMOL/L (135-145); TOTAL CARBON DIOXIDE 26.6 MMOL/L (24-32); TOTAL PROTEIN 4.3 G/DL (6.4-8.2); eGFR 12 ML/MIN
--- NOTE | 2020-09-24 06:20 | NUR ---
Problems reprioritized. Patient report given, questions answered & plan of care reviewed with Kyra HILL.
--- NOTE | 2020-09-24 06:30 | NUR ---
Patient in room ICU 2041. I have received report from SERGIO Pino and had the opportunity to ask questions and assume patient care. Patient stable at transfer of care.
[2020-09-24] MEDS: sodium chloride 0.45% 1,000 ML IV SCH (07:25)
[2020-09-24] MEDS: diatr meglu/diatrizoate 30ml oral sol.-(3 dose) bottle PO SCH ×2 (07:35→11:02)
[2020-09-24] MEDS: piperacillin/tazo 3.375gm/50ml 50 ML IV SCH ×2 (07:47→20:16)
[2020-09-24] MEDS: famotidine/PF 10 mg/ml inj IV SCH ×2 (07:47→20:16)
[2020-09-24] MEDS ORDERED: epoetin 20,000 units/ml inj IV ONE (08:00)
[2020-09-24] MEDS ORDERED: heparin 1,000 units/ml 10ml inj IV ONE (08:00)
[2020-09-24] MEDS ORDERED: heparin 1,000unit/ml 10ml vial 10 ML IV ONE (08:00)
[2020-09-24] MEDS ORDERED: albumin (human) 25% 100ml IV 100 ML IV PRN (08:00)
[2020-09-24] MEDS: levoTHYROXINE sod inj. 100mcg/5 ml vial IV SCH (08:05)
[2020-09-24] MEDS: Dakins solution (1/4 strength) 473ml solution TP SCH (08:05)
[2020-09-24] MEDS ORDERED: heparin 1,000 units/ml 10ml inj HE ONE ×2 (08:05)
[2020-09-24] MEDS: nystatin 15 GM powder TP SCH ×2 (08:05→20:17)
[2020-09-24] MEDS: lactobacillus rhamnosus 10,000 MMU CELLS/CAPSULE OGT SCH ×2 (08:06→20:16)
[2020-09-24] MEDS ORDERED: heparin 1,000unit/ml 10ml vial 10 ML ONE (08:40)
[2020-09-24] MEDS ORDERED: midazolam 2 mg/2 ml injection ONE (08:40)
[2020-09-24] MEDS ORDERED: fentaNYL/PF 50MCG/1 ML 2ML syringe ONE (08:40)
[2020-09-24] MEDS ORDERED: LIDOcaine 1%/PF 5ML 10 MG/ML VIAL ONE (08:40)
--- NOTE | 2020-09-24 09:21 | NUR ---
Patient going down for TDC placement.
--- NOTE | 2020-09-24 11:11 | NUR ---
Patient back from TDC placement and CT
[2020-09-24] MEDS: insulin regular, human U-100 3ml vial - multi-dose SQ SCH ×2 (14:17→20:52)
--- NOTE | 2020-09-24 14:23 | NUR ---
Patient had 1L taken off from dialysis.
--- NOTE | 2020-09-24 18:14 | NUR ---
Problems reprioritized. Patient report given, questions answered & plan of care reviewed with SERGIO Pino. Patient stable at transfer of care.
[2020-09-24] MEDS: CALCIUM GLUCONATE IV SCH ×10 (19:40)
[2020-09-24] MEDS: MAGNESIUM IV SCH ×10 (19:40)
[2020-09-24] MEDS: [UNRECOGNIZED DRUG - OTHER] IV SCH ×10 (19:40)
[2020-09-24] MEDS: SODIUM CHLORIDE IV SCH ×10 (19:40)
[2020-09-24] MEDS: enoxaparin 30mg/0.3ml syringe SUBCUT SCH (20:16)
[2020-09-24] MEDS: insulin glargine (Lantus) pen - multi-dose SQ SCH (20:53)
[2020-09-25] VITALS (24 sets, daily range): BP systolic 102–133; BP diastolic 54–84
[2020-09-25] MEDS: HYDROmorphone/NS 1 mg/ml CADD 50 ML IV SCH ×12 (01:00→23:00)
[2020-09-25] MEDS: ipratropium/albuterol 3ml nebule NEB SCH ×4 (02:16→21:03)
[2020-09-25 02:50] LABS: BASOPHILS # (AUTO) 0.1 X10'3 (0-0.2); BASOPHILS % (AUTO) 0.4 % (0-1); EOSINOPHILS # (AUTO) 0.2 X10'3 (0-0.9); EOSINOPHILS % (AUTO) 0.9 % (0-6); HEMATOCRIT 26.3 % (42.0-52.0); HEMOGLOBIN 8.5 g/dl (14.0-17.9); LYMPHOCYTES # (AUTO) 0.8 X10'3 (1.1-4.8); LYMPHOCYTES % (AUTO) 4.5 % (21-51); MEAN CORPUSCULAR HEMOGLOBIN 28.9 PG (27.0-31.0); MEAN CORPUSCULAR HGB CONC 32.2 g/dL (33.0-36.5); MEAN CORPUSCULAR VOLUME 89.9 FL (78-98); MEAN PLATELET VOLUME 8.6 FL (7.4-10.4); MONOCYTES # (AUTO) 1.1 X10'3 (0-0.9); MONOCYTES % (AUTO) 6.3 % (2-12); NEUTROPHILS # (AUTO) 15.1 X10'3 (1.8-7.7); NEUTROPHILS % (AUTO) 87.9 % (42-75); PLATELET COUNT 242 X10'3 (140-440); RED BLOOD COUNT 2.93 X10'6 (4.70-6.10); WHITE BLOOD COUNT 17.2 X10'3 (4.5-11.0)
[2020-09-25 02:59] LABS: ALANINE AMINOTRANSFERASE 41 U/L (12-78); ALBUMIN 1.2 G/DL (3.4-5.0); ALBUMIN/GLOBULIN RATIO 0.4 (1.1-1.5); ALKALINE PHOSPHATASE 213 IU/L (46-116); ANION GAP 8 (8-16); ASPARTATE AMINO TRANSFERASE 27 U/L (10-37); BILIRUBIN,TOTAL 0.9 MG/DL (0.1-1.0); BLOOD UREA NITROGEN 94 MG/DL (7-18); BUN/CREATININE RATIO 25.2 (5.4-32.0); CALCIUM 7.7 MG/DL (8.5-10.1); CHLORIDE 105 MMOL/L (99-107); CREATININE 3.73 MG/DL (0.60-1.10); GLUCOSE 79 MG/DL (70-104); MAGNESIUM 1.5 MG/DL (1.5-2.4); POTASSIUM 4.9 MMOL/L (3.5-5.1); SODIUM 141 MMOL/L (135-145); TOTAL CARBON DIOXIDE 28.4 MMOL/L (24-32); TOTAL PROTEIN 4.5 G/DL (6.4-8.2); eGFR 16 ML/MIN
--- NOTE | 2020-09-25 03:35 | NUR ---
Problems reprioritized. Patient report given, questions answered & plan of care reviewed with Iam HILL.
[2020-09-25] MEDS: famotidine/PF 10 mg/ml inj IV SCH ×2 (07:56→20:03)
[2020-09-25] MEDS: lactobacillus rhamnosus 10,000 MMU CELLS/CAPSULE OGT SCH ×2 (07:57→20:00)
[2020-09-25] MEDS: piperacillin/tazo 3.375gm/50ml 50 ML IV SCH ×2 (07:57→20:04)
[2020-09-25] MEDS: nystatin 15 GM powder TP SCH ×2 (08:00→20:04)
[2020-09-25] MEDS: insulin regular, human U-100 3ml vial - multi-dose SQ SCH ×3 (09:07→21:05)
[2020-09-25] MEDS: SODIUM CHLORIDE IV SCH ×10 (16:25)
[2020-09-25] MEDS: CALCIUM GLUCONATE IV SCH ×10 (16:25)
[2020-09-25] MEDS: [UNRECOGNIZED DRUG - OTHER] IV SCH ×10 (16:25)
[2020-09-25] MEDS: MAGNESIUM IV SCH ×10 (16:25)
--- NOTE | 2020-09-25 18:30 | NUR ---
Patient in room ICU 2041. I have received report from Rosita HILL and had the opportunity to ask questions and assume patient care.
--- NOTE | 2020-09-25 18:30 | NUR ---
Problems reprioritized. Patient report given, questions answered & plan of care reviewed with SERGIO Jolly.
--- NOTE | 2020-09-25 19:30 | NUR ---
Patient's NG tube was out lying next to him at the start of shift. Attempted to replace it with some resistance and this was unsuccessful. Patient unwilling to allow another attempt at this time. He is not having any nausea or abdominal distention and was not having copious amounts of output before the NG was dislodged nor was he receiving tube feeding so will continue to monitor for now.
--- NOTE | 2020-09-25 20:00 | NUR ---
Verified with Antione Gil that it is ok to give SQ Lovenox tonight with him getting the urethral stents placed tomorrow.
[2020-09-25] MEDS: enoxaparin 30mg/0.3ml syringe SUBCUT SCH (20:55)
[2020-09-25] MEDS: insulin glargine (Lantus) pen - multi-dose SQ SCH (21:07)
[2020-09-26] VITALS (24 sets, daily range): BP systolic 99–143; BP diastolic 44–80
[2020-09-26] MEDS: HYDROmorphone/NS 1 mg/ml CADD 50 ML IV SCH ×11 (01:00→23:00)
[2020-09-26 02:42] LABS: BASOPHILS # (AUTO) 0.1 X10'3 (0-0.2); BASOPHILS % (AUTO) 0.5 % (0-1); EOSINOPHILS # (AUTO) 0.2 X10'3 (0-0.9); EOSINOPHILS % (AUTO) 0.7 % (0-6); HEMATOCRIT 25.8 % (42.0-52.0); HEMOGLOBIN 8.2 g/dl (14.0-17.9); LYMPHOCYTES # (AUTO) 0.7 X10'3 (1.1-4.8); MEAN CORPUSCULAR HEMOGLOBIN 28.5 PG (27.0-31.0); MEAN CORPUSCULAR HGB CONC 31.8 g/dL (33.0-36.5); MEAN CORPUSCULAR VOLUME 89.5 FL (78-98); MEAN PLATELET VOLUME 9.2 FL (7.4-10.4); MONOCYTES # (AUTO) 1.3 X10'3 (0-0.9); MONOCYTES % (AUTO) 5.9 % (2-12); NEUTROPHILS # (AUTO) 20.1 X10'3 (1.8-7.7); NEUTROPHILS % (AUTO) 89.9 % (42-75); PLATELET COUNT 319 X10'3 (140-440); RED BLOOD COUNT 2.89 X10'6 (4.70-6.10); RED CELL DISTRIBUTION WIDTH 17.4 % (11.5-14.5); WHITE BLOOD COUNT 22.4 X10'3 (4.5-11.0)
[2020-09-26] MEDS: insulin regular, human U-100 3ml vial - multi-dose SQ SCH ×3 (02:45→15:18)
[2020-09-26] MEDS: ipratropium/albuterol 3ml nebule NEB SCH ×4 (03:00→21:34)
[2020-09-26 03:11] LABS: ALANINE AMINOTRANSFERASE 35 U/L (12-78); ALBUMIN 1.2 G/DL (3.4-5.0); ALBUMIN/GLOBULIN RATIO 0.3 (1.1-1.5); ALKALINE PHOSPHATASE 199 IU/L (46-116); ANION GAP 10 (8-16); ASPARTATE AMINO TRANSFERASE 24 U/L (10-37); BILIRUBIN,TOTAL 0.8 MG/DL (0.1-1.0); BLOOD UREA NITROGEN 130 MG/DL (7-18); BUN/CREATININE RATIO 24.9 (5.4-32.0); CALCIUM 8.8 MG/DL (8.5-10.1); CHLORIDE 104 MMOL/L (99-107); CREATININE 5.23 MG/DL (0.60-1.10); GLUCOSE 112 MG/DL (70-104); MAGNESIUM 1.6 MG/DL (1.5-2.4); PHOSPHORUS 3.4 MG/DL (2.3-4.5); SODIUM 142 MMOL/L (135-145); TOTAL CARBON DIOXIDE 27.7 MMOL/L (24-32); TOTAL PROTEIN 4.8 G/DL (6.4-8.2); eGFR 11 ML/MIN
[2020-09-26 03:14] LABS: ANISOCYTOSIS 1+; PLATELET ESTIMATE NORMAL; TOTAL CELLS COUNTED 100
[2020-09-26 03:15] LABS: POLYCHROMASIA FEW; TARGET CELLS FEW
--- NOTE | 2020-09-26 06:38 | NUR ---
Problems reprioritized. Patient report given, questions answered & plan of care reviewed with Nadine HILL.
--- NOTE | 2020-09-26 07:30 | NUR ---
Dr. Bustillo made aware of patient potassium of 6.0, BUN/CR. Discussed patient having dialysis prior to ureteral stent placement. OR/Dr. Benavides made aware
[2020-09-26] MEDS: lactobacillus rhamnosus 10,000 MMU CELLS/CAPSULE OGT SCH ×2 (08:00→20:43)
[2020-09-26] MEDS: piperacillin/tazo 3.375gm/50ml 50 ML IV SCH ×2 (08:11→20:43)
[2020-09-26] MEDS: levoTHYROXINE sod inj. 100mcg/5 ml vial IV SCH (08:12)
[2020-09-26] MEDS: famotidine/PF 10 mg/ml inj IV SCH ×2 (08:12→20:42)
[2020-09-26] MEDS: nystatin 15 GM powder TP SCH ×2 (08:12→20:43)
[2020-09-26] MEDS ORDERED: iohexol 300 MG/1 ML 50ml polymer ONE (08:31)
[2020-09-26] MEDS ORDERED: epoetin 20,000 units/ml inj IV ONE (08:35)
[2020-09-26] MEDS ORDERED: heparin 1,000unit/ml 10ml vial 10 ML IV ONE (08:35)
[2020-09-26] MEDS ORDERED: heparin 1,000 units/ml 10ml inj IV ONE (08:35)
[2020-09-26] MEDS ORDERED: albumin (human) 25% 100ml IV 100 ML IV PRN (08:35)
[2020-09-26] MEDS ORDERED: heparin 1,000 units/ml 10ml inj HE ONE ×2 (08:40)
--- NOTE | 2020-09-26 12:05 | NUR ---
F/u 09/26: Pt custom TPN at goal w/ electrolytes WNL except for elevated K 6.0; noted BUN 130 and Creatinine 5.23 elevated w/ pt to start HD today per supervisor microfilm duplicating unit. Pt pending OR today for cystoscopy/ureteroscopy extraction of stone bilaterally as well per MD note. Pt meeting protein needs without overfeeding given significant wound healing needs, DX, and now HD as well. Colostomy 20ml output past 24 hours; most significant output noted this admit including prior Ileostomy. Will continue to monitor for GI function/integrity; IF functional gut w/ colostomy output EN would be more beneficial for wound healing needs since Yao can be added BID. Will continue to monitor. Rec: 1. Custom TPN per supervisor microfilm duplicating unit on HD given protein needs using 1500ml 10%AA, 500ml D70, and 100ml 20% intralipids to run at 87.5ml/hr goal. To provide total volume of 2100ml/day, 150g AA, 350g DEX(3.27mg/kg/min), 20g lipids, and 1990 total kcals. 2. Micronutrients per supervisor microfilm duplicating unit recs on HD 3. PALB Q /; daily wts 4. bowel care per rx 5. monitor for colostomy output and EN needs as medically indicated; IF TF Vital High Protein at 80ml/hr 6. Colostomy nutrition therapy education following extubation once stable and appropriate Addendum: 09/26/20 at [address] Amended: Links added.
--- NOTE | 2020-09-26 15:25 | NUR ---
Attempted to call OR to let them know the patient has completed dialysis twice. No answer.
[2020-09-26] MEDS ORDERED: [UNRECOGNIZED DRUG - OTHER] IV SCH ×10 (16:00)
[2020-09-26] MEDS ORDERED: CALCIUM GLUCONATE IV SCH ×10 (16:00)
[2020-09-26] MEDS ORDERED: MAGNESIUM IV SCH ×10 (16:00)
[2020-09-26] MEDS ORDERED: SODIUM CHLORIDE IV SCH ×10 (16:00)
[2020-09-26] MEDS ORDERED: fentaNYL/PF 50MCG/1 ML 2ML syringe ONE (18:07)
[2020-09-26] MEDS ORDERED: rocuronium 10mg/ml inj IV ONE (18:10)
[2020-09-26] MEDS ORDERED: LIDOcaine 2% (20mg/ml) 5ml vial ONE (18:10)
[2020-09-26] MEDS ORDERED: propofol inj 20 ML IV ONE (18:10)
--- NOTE | 2020-09-26 18:11 | NUR ---
Patient left to OR at 181 in stable condition, pending repeat K level at this time.
[2020-09-26] MEDS ORDERED: sevoflurane 250ml liquid IH ONE (18:20)
--- NOTE | 2020-09-26 18:22 | NUR ---
Problems reprioritized. Patient report given, questions answered & plan of care reviewed with Gustavo HILL.
--- NOTE | 2020-09-26 18:23 | NUR ---
Patient in room ICU 2041. I have received report from Nadine HILL and had the opportunity to ask questions and assume patient care.
[2020-09-26] MEDS ORDERED: ceFAZolin 1000mg inj ONE (19:04)
[2020-09-26] MEDS ORDERED: sugammadex 200mg/2ml injection IV ONE (19:06)
--- NOTE | 2020-09-26 19:27 | NUR ---
Problems reprioritized. Patient report given, questions answered & plan of care reviewed with Belem HILL.
--- NOTE | 2020-09-26 19:45 | NUR ---
reprt received from Gustavo HILL. pt returned from OR. pt assessed.
[2020-09-26] MEDS ORDERED: ondansetron/PF 4mg/2ml inj ONE (19:59)
[2020-09-26 20:16] LABS: ABG BASE EXCESS 2.7 mmol/L (-2.0-2.0); ABG OXYGEN SATURATION 98.6 % (94-97); ABG PCO2 (T) 33.4 mmHg (35.0-48.0); ABG PO2 (T) 163.9 mmHg (75.0-100.0); ALLEN'S TEST POSITIVE; FCOHb 0.1 % (0.0-3.9); FMetHb 0.1 % (0.0-1.5); FO2Hb 98.4 % (94-97); PEEP 5 cm H2O; RESPIRATORY RATE 14 b/min; TIDAL VOLUME 650 mL; TOTAL HEMOGLOBIN 9.6 G/dl (14.0-18.0)
[2020-09-26] MEDS: enoxaparin 30mg/0.3ml syringe SUBCUT SCH (20:43)
[2020-09-26] MEDS: insulin glargine (Lantus) pen - multi-dose SQ SCH (21:00)
[2020-09-26 21:36] LABS: ABG BASE EXCESS 1.4 mmol/L (-2.0-2.0); ABG HCO3 24.8 mmol/L (22.0-26.0); ABG OXYGEN SATURATION 96.3 % (94-97); ABG PCO2 (T) 34.1 mmHg (35.0-48.0); ABG PO2 (T) 86.1 mmHg (75.0-100.0); ALLEN'S TEST POSITIVE; FCOHb 0.3 % (0.0-3.9); PEEP 5 cm H2O; TOTAL HEMOGLOBIN 9.7 G/dl (14.0-18.0)
[2020-09-27] VITALS (23 sets, daily range): BP systolic 100–123; BP diastolic 53–68
[2020-09-27] MEDS: HYDROmorphone/NS 1 mg/ml CADD 50 ML IV SCH ×12 (01:00→23:00)
[2020-09-27] MEDS: ipratropium/albuterol 3ml nebule NEB SCH ×4 (02:19→21:05)
[2020-09-27 02:43] LABS: BASOPHILS # (AUTO) 0.1 X10'3 (0-0.2); BASOPHILS % (AUTO) 0.4 % (0-1); EOSINOPHILS # (AUTO) 0.1 X10'3 (0-0.9); EOSINOPHILS % (AUTO) 0.5 % (0-6); HEMOGLOBIN 8.3 g/dl (14.0-17.9); LYMPHOCYTES # (AUTO) 0.7 X10'3 (1.1-4.8); LYMPHOCYTES % (AUTO) 3.2 % (21-51); MEAN CORPUSCULAR HEMOGLOBIN 29.1 PG (27.0-31.0); MEAN CORPUSCULAR HGB CONC 32.1 g/dL (33.0-36.5); MEAN CORPUSCULAR VOLUME 90.7 FL (78-98); MEAN PLATELET VOLUME 9.3 FL (7.4-10.4); MONOCYTES # (AUTO) 1.3 X10'3 (0-0.9); MONOCYTES % (AUTO) 5.7 % (2-12); NEUTROPHILS # (AUTO) 20.6 X10'3 (1.8-7.7); NEUTROPHILS % (AUTO) 90.2 % (42-75); PLATELET COUNT 409 X10'3 (140-440); RED BLOOD COUNT 2.86 X10'6 (4.70-6.10); RED CELL DISTRIBUTION WIDTH 18.3 % (11.5-14.5); WHITE BLOOD COUNT 22.8 X10'3 (4.5-11.0)
[2020-09-27 02:47] LABS: ALANINE AMINOTRANSFERASE 38 U/L (12-78); ALBUMIN 1.1 G/DL (3.4-5.0); ALBUMIN/GLOBULIN RATIO 0.3 (1.1-1.5); ALKALINE PHOSPHATASE 210 IU/L (46-116); ANION GAP 7 (8-16); ASPARTATE AMINO TRANSFERASE 25 U/L (10-37); BILIRUBIN,TOTAL 0.6 MG/DL (0.1-1.0); BLOOD UREA NITROGEN 74 MG/DL (7-18); BUN/CREATININE RATIO 23.9 (5.4-32.0); CALCIUM 7.5 MG/DL (8.5-10.1); CHLORIDE 105 MMOL/L (99-107); CREATININE 3.09 MG/DL (0.60-1.10); GLUCOSE 228 MG/DL (70-104); MAGNESIUM 1.5 MG/DL (1.5-2.4); PHOSPHORUS 3.2 MG/DL (2.3-4.5); POTASSIUM 4.8 MMOL/L (3.5-5.1); SODIUM 141 MMOL/L (135-145); TOTAL CARBON DIOXIDE 28.9 MMOL/L (24-32); TOTAL PROTEIN 4.6 G/DL (6.4-8.2); TRIGLYCERIDES 134 MG/DL (20-135); eGFR 20 ML/MIN
[2020-09-27] MEDS: insulin regular, human U-100 3ml vial - multi-dose SQ SCH ×3 (02:50→19:34)
[2020-09-27 03:36] LABS: ANISOCYTOSIS 2+; PLATELET ESTIMATE NORMAL; TOTAL CELLS COUNTED 100
[2020-09-27 03:37] LABS: ACANTHOCYTES FEW; LARGE PLATELETS FEW; POLYCHROMASIA FEW; SCHISTOCYTES FEW; TARGET CELLS FEW
--- NOTE | 2020-09-27 03:51 | NUR ---
dressing changed per order.
--- NOTE | 2020-09-27 06:15 | NUR ---
Patient in room ICU 2041. I have received report from Lucero HILL and had the opportunity to ask questions and assume patient care. Patient asleep in bed and resting. In no acute distress. Will continue to monitor.
[2020-09-27] MEDS: nystatin 15 GM powder TP SCH ×2 (08:00→20:00)
[2020-09-27] MEDS: lactobacillus rhamnosus 10,000 MMU CELLS/CAPSULE OGT SCH ×2 (08:00→19:36)
[2020-09-27] MEDS: piperacillin/tazo 3.375gm/50ml 50 ML IV SCH (08:30)
[2020-09-27] MEDS: famotidine/PF 10 mg/ml inj IV SCH ×2 (08:30→19:37)
[2020-09-27 11:46] LABS: PREALBUMIN 12.9 MG/DL (19-36)
--- NOTE | 2020-09-27 12:08 | NUR ---
F/u 09/27: Pt blood positive for fungal infection w/ central line to be pulled per senior game advisor meaning TPN is to be held at this time. NENITA recommends LIGHT ARMORED RECONNAISSANCE OFFICER BSS to determine PO capabilities w/ ALOC. Pt likely only able to meet vast protein needs given significant wounds w/ corpak EN at this time; will monitor for LIGHT ARMORED RECONNAISSANCE OFFICER recs. EN recs below. Colostomy output 150ml so far today per RN improving. Will continue to monitor. Addendum: 09/27/20 at [address] Amended: Links added.
[2020-09-27] MEDS ORDERED: fluconazole/NS 400mg/200ml bag 200 ML IV ONE ×2 (12:15→16:00)
[2020-09-27] MEDS ORDERED: NS IV ONE (12:15)
[2020-09-27] MEDS ORDERED: FLUCONAZOLE IV ONE (12:15)
[2020-09-27] MEDS ORDERED: FLUCONAZOLE IV SCH (13:00)
[2020-09-27] MEDS ORDERED: NS IV SCH (13:00)
--- NOTE | 2020-09-27 14:33 | NUR ---
Report given to Donald on PCU. All questions answered. Patient stable at transfer of care.
[2020-09-27] MEDS: dextrose 50%-water 50ml dispensing syringe IV PRN (15:34)
--- NOTE | 2020-09-27 15:56 | NUR ---
Patient evaluated by speech therapy and order for pureed diet. Patient not awake and alert enough to eat. Per Dr. Bustillo, continue TPN at this time.
--- NOTE | 2020-09-27 18:40 | NUR ---
Problems reprioritized. Patient report given, questions answered & plan of care reviewed with SERGIO Dewitt. Patient stable at transfer of care.
--- NOTE | 2020-09-27 18:44 | NUR ---
Patient in room ICU 2041. I have received report from Aleyda HILL and had the opportunity to ask questions and assume patient care.
[2020-09-27] MEDS: enoxaparin 30mg/0.3ml syringe SUBCUT SCH (19:36)
[2020-09-27] MEDS ORDERED: CALCIUM GLUCONATE IV SCH ×12 (21:00)
[2020-09-27] MEDS ORDERED: MAGNESIUM IV SCH ×12 (21:00)
[2020-09-27] MEDS ORDERED: [UNRECOGNIZED DRUG - OTHER] IV SCH ×12 (21:00)
[2020-09-27] MEDS ORDERED: SODIUM CHLORIDE IV SCH ×12 (21:00)
[2020-09-27] MEDS: insulin glargine (Lantus) pen - multi-dose SQ SCH (23:06)
[2020-09-28] VITALS (24 sets, daily range): BP systolic 105–139; BP diastolic 57–84
[2020-09-28] MEDS: HYDROmorphone/NS 1 mg/ml CADD 50 ML IV SCH ×12 (01:00→23:00)
[2020-09-28 01:47] LABS: BASOPHILS # (AUTO) 0.1 X10'3 (0-0.2); BASOPHILS % (AUTO) 0.5 % (0-1); EOSINOPHILS # (AUTO) 0.2 X10'3 (0-0.9); HEMATOCRIT 24.1 % (42.0-52.0); HEMOGLOBIN 7.7 g/dl (14.0-17.9); LYMPHOCYTES # (AUTO) 1.1 X10'3 (1.1-4.8); LYMPHOCYTES % (AUTO) 5.1 % (21-51); MEAN CORPUSCULAR VOLUME 90.6 FL (78-98); MEAN PLATELET VOLUME 9.2 FL (7.4-10.4); MONOCYTES # (AUTO) 1.5 X10'3 (0-0.9); NEUTROPHILS # (AUTO) 18.1 X10'3 (1.8-7.7); NEUTROPHILS % (AUTO) 86.4 % (42-75); PLATELET COUNT 566 X10'3 (140-440); RED BLOOD COUNT 2.66 X10'6 (4.70-6.10); RED CELL DISTRIBUTION WIDTH 17.9 % (11.5-14.5)
[2020-09-28 01:57] LABS: ALANINE AMINOTRANSFERASE 41 U/L (12-78); ALBUMIN 1.1 G/DL (3.4-5.0); ALBUMIN/GLOBULIN RATIO 0.3 (1.1-1.5); ALKALINE PHOSPHATASE 239 IU/L (46-116); ANION GAP 7 (8-16); ASPARTATE AMINO TRANSFERASE 27 U/L (10-37); BILIRUBIN,TOTAL 0.5 MG/DL (0.1-1.0); BLOOD UREA NITROGEN 87 MG/DL (7-18); BUN/CREATININE RATIO 26.2 (5.4-32.0); CALCIUM 7.6 MG/DL (8.5-10.1); CHLORIDE 110 MMOL/L (99-107); CREATININE 3.32 MG/DL (0.60-1.10); GLUCOSE 145 MG/DL (70-104); MAGNESIUM 1.5 MG/DL (1.5-2.4); PHOSPHORUS 3.5 MG/DL (2.3-4.5); POTASSIUM 4.5 MMOL/L (3.5-5.1); SODIUM 146 MMOL/L (135-145); TOTAL CARBON DIOXIDE 28.6 MMOL/L (24-32); TOTAL PROTEIN 4.5 G/DL (6.4-8.2); eGFR 18 ML/MIN
[2020-09-28] MEDS: ipratropium/albuterol 3ml nebule NEB SCH ×4 (02:21→20:21)
[2020-09-28] MEDS: insulin regular, human U-100 3ml vial - multi-dose SQ SCH ×3 (02:27→14:15)
[2020-09-28 05:24] LABS: PLATELET ESTIMATE INCREASED; TOTAL CELLS COUNTED 100
[2020-09-28 05:25] LABS: ACANTHOCYTES FEW; ANISOCYTOSIS 1+; HYPOCHROMASIA 1+; POLYCHROMASIA 1+
[2020-09-28 05:26] LABS: LARGE PLATELETS FEW; ROULEAUX 1+; TOXIC GRANULATION 1+; TOXIC VACUOLATION FEW
[2020-09-28 05:27] LABS: SCHISTOCYTES FEW; TARGET CELLS FEW
--- NOTE | 2020-09-28 06:36 | NUR ---
Problems reprioritized. Patient report given, questions answered & plan of care reviewed with Osmany HILL. Patient stable at transfer of care.
--- NOTE | 2020-09-28 06:46 | NUR ---
Patient in room ICU 2041. I have received report from Rosa HILL and had the opportunity to ask questions and assume patient care.
[2020-09-28] MEDS ORDERED: fluconazole-Diflucan 200mg/NS 100 ML IV SCH (08:00)
[2020-09-28] MEDS: nystatin 15 GM powder TP SCH ×2 (08:55→21:09)
[2020-09-28] MEDS: famotidine/PF 10 mg/ml inj IV SCH (08:55)
[2020-09-28] MEDS: lactobacillus rhamnosus 10,000 MMU CELLS/CAPSULE OGT SCH (08:55)
[2020-09-28] MEDS: levoTHYROXINE sod inj. 100mcg/5 ml vial IV SCH (08:58)
--- NOTE | 2020-09-28 12:24 | NUR ---
TF Consult: Pt advanced to pureed/thin diet per FIREWALL SECURITY ENGINEER recs and poor PO w/ assistance at meals this far. Colostomy 300ml output yesterday improving. Given functional gut and increased protein needs for wound healing w/ poor PO pt to have corpak placed for supplemental EN in addition to PO. TF recs below; Yao BID w/ free water flushes to start given pt wound healing needs. TPN to wean once EN initiated and tolerance ensured per billing machine operator. No longer on HD at this time. Will monitor for EN tolerance, PO hx, and additional protein needs. Rec: 1. NGTF via corpak per MD using Vital High Protein at 80ml/hr goal; to provide 1920ml volume, 1920kcals, 1613ml free water, and 168g protein. Initiate at 20ml/hr and advance 20ml Q8 to goal as tolerated. 2. additional water flush 200ml Q4 3. continue pureed/thin diet per FIREWALL SECURITY ENGINEER recs; encourage PO w/ assistance given ALOC 4. PALB Q /; daily wts 5. Yao packet BID w/ EN for wound healing. Mix 1 packet yao w/ 120ml free water and flush tube w/ 40ml free water before and after administration. 5. Only wean EN IF consistent PO 65% avg meals given wound healing needs and ALOC 6. bowel care per rx 7. Colostomy nutrition therapy education following extubation once stable and appropriate Addendum: 09/28/20 at [address] Amended: Links added.
[2020-09-28] MEDS ORDERED: acetaminophen 325mg/10.15ml oral unit dose solution CORPAK PRN ×2 (13:42→13:43)
[2020-09-28] MEDS ORDERED: dextrose ORAL solution 15 GM/59 ML bottle CORPAK PRN ×2 (13:43)
[2020-09-28] MEDS ORDERED: Neutra Phos packet CORPAK PRN (13:45)
--- NOTE | 2020-09-28 18:14 | NUR ---
Problems reprioritized. Patient report given, questions answered & plan of care reviewed with Hermelinda HILL.
--- NOTE | 2020-09-28 18:15 | NUR ---
Patient in room ICU 2042. I have received report and had the opportunity to ask questions and assume patient care.
[2020-09-28] MEDS: ARGININE/GLUTAMINE/CALCIUM BMB (JUVEN 19.3GM PKT) 1 EACH POWD.PACK PO SCH (20:00)
[2020-09-28] MEDS: insulin glargine (Lantus) pen - multi-dose SQ SCH (21:00)
[2020-09-28] MEDS: lactobacillus rhamnosus 10,000 MMU CELLS/CAPSULE CORPAK SCH (21:08)
[2020-09-28] MEDS: famotidine 20mg tablet CORPAK SCH (21:08)
[2020-09-28] MEDS: enoxaparin 30mg/0.3ml syringe SUBCUT SCH (21:09)
[2020-09-29] VITALS (24 sets, daily range): BP systolic 107–135; BP diastolic 60–90
[2020-09-29] MEDS: HYDROmorphone/NS 1 mg/ml CADD 50 ML IV SCH ×12 (01:00→23:00)
[2020-09-29] MEDS: ipratropium/albuterol 3ml nebule NEB SCH ×4 (02:35→21:03)
[2020-09-29 02:47] LABS: BASOPHILS # (AUTO) 0.1 X10'3 (0-0.2); HEMATOCRIT 24.7 % (42.0-52.0); MEAN PLATELET VOLUME 8.8 FL (7.4-10.4); MONOCYTES # (AUTO) 1.2 X10'3 (0-0.9)
[2020-09-29 02:49] LABS: BASOPHILS % (AUTO) 0.5 % (0-1); EOSINOPHILS # (AUTO) 0.2 X10'3 (0-0.9); EOSINOPHILS % (AUTO) 0.7 % (0-6); LYMPHOCYTES # (AUTO) 1.2 X10'3 (1.1-4.8); LYMPHOCYTES % (AUTO) 5.5 % (21-51); MEAN CORPUSCULAR HEMOGLOBIN 29.9 PG (27.0-31.0); MEAN CORPUSCULAR HGB CONC 32.5 g/dL (33.0-36.5); MONOCYTES % (AUTO) 5.4 % (2-12); NEUTROPHILS # (AUTO) 19.6 X10'3 (1.8-7.7); NEUTROPHILS % (AUTO) 87.9 % (42-75); PLATELET COUNT 735 X10'3 (140-440); RED BLOOD COUNT 2.68 X10'6 (4.70-6.10); RED CELL DISTRIBUTION WIDTH 17.9 % (11.5-14.5); WHITE BLOOD COUNT 22.3 X10'3 (4.5-11.0)
[2020-09-29 02:56] LABS: ALANINE AMINOTRANSFERASE 43 U/L (12-78); ALBUMIN 1.2 G/DL (3.4-5.0); ALBUMIN/GLOBULIN RATIO 0.3 (1.1-1.5); ALKALINE PHOSPHATASE 274 IU/L (46-116); ANION GAP 10 (8-16); ASPARTATE AMINO TRANSFERASE 34 U/L (10-37); BILIRUBIN,TOTAL 0.6 MG/DL (0.1-1.0); BLOOD UREA NITROGEN 92 MG/DL (7-18); BUN/CREATININE RATIO 26.8 (5.4-32.0); CALCIUM 7.6 MG/DL (8.5-10.1); CHLORIDE 113 MMOL/L (99-107); CREATININE 3.43 MG/DL (0.60-1.10); GLUCOSE 102 MG/DL (70-104); MAGNESIUM 1.3 MG/DL (1.5-2.4); PHOSPHORUS 3.5 MG/DL (2.3-4.5); POTASSIUM 3.9 MMOL/L (3.5-5.1); SODIUM 149 MMOL/L (135-145); TOTAL CARBON DIOXIDE 26.3 MMOL/L (24-32); TOTAL PROTEIN 4.7 G/DL (6.4-8.2); eGFR 17 ML/MIN
[2020-09-29 03:52] LABS: ANISOCYTOSIS 1+; PLATELET ESTIMATE INCREASED; TOTAL CELLS COUNTED 100
[2020-09-29 03:55] LABS: TARGET CELLS FEW
[2020-09-29 03:56] LABS: POLYCHROMASIA 1+; SCHISTOCYTES FEW; TOXIC GRANULATION 1+
[2020-09-29 03:57] LABS: ROULEAUX 1+; TOXIC VACUOLATION FEW
[2020-09-29 03:58] LABS: STOMATOCYTES FEW
[2020-09-29 03:59] LABS: ACANTHOCYTES FEW; LARGE PLATELETS FEW
[2020-09-29] MEDS: magnesium 2GM in 50ml NS 50 ML IV PRN (04:23)
--- NOTE | 2020-09-29 06:35 | NUR ---
Patient in room ICU 2042. I have received report from Hermelinda HILL and had the opportunity to ask questions and assume patient care.
--- NOTE | 2020-09-29 06:35 | NUR ---
Problems reprioritized. Patient report given, questions answered & plan of care reviewed.
[2020-09-29] MEDS: famotidine 20mg tablet CORPAK SCH ×2 (07:45→19:29)
[2020-09-29] MEDS: lactobacillus rhamnosus 10,000 MMU CELLS/CAPSULE CORPAK SCH ×2 (07:45→19:30)
[2020-09-29] MEDS: nystatin 15 GM powder TP SCH ×2 (07:46→19:30)
[2020-09-29] MEDS: levoTHYROXINE 25mcg tablet CORPAK SCH (07:47)
[2020-09-29] MEDS ORDERED: fluconazole-Diflucan 100MG/NS 50 ML IV SCH (08:00)
[2020-09-29] MEDS: ARGININE/GLUTAMINE/CALCIUM BMB (JUVEN 19.3GM PKT) 1 EACH POWD.PACK PO SCH ×2 (09:30→20:39)
[2020-09-29] MEDS: sodium chloride 0.45% 1,000 ML IV SCH ×2 (09:30→19:07)
[2020-09-29] MEDS ORDERED: LIDOcaine 1% (10mg/ml) 2ml vial SQ ONE (14:15)
--- NOTE | 2020-09-29 18:06 | NUR ---
Problems reprioritized. Patient report given, questions answered & plan of care reviewed with Hermelinda HILL.
--- NOTE | 2020-09-29 18:06 | NUR ---
Patient in room ICU 2042. I have received report from Jett HILL and had the opportunity to ask questions and assume patient care.
[2020-09-29] MEDS: enoxaparin 30mg/0.3ml syringe SUBCUT SCH (19:29)
[2020-09-29] MEDS: insulin glargine (Lantus) pen - multi-dose SQ SCH (20:05)
[2020-09-29] MEDS: insulin regular, human U-100 3ml vial - multi-dose SQ SCH (20:08)
--- NOTE | 2020-09-29 21:50 | NUR ---
Ostomy bag found with gross leak from inner flange attached to skin. Unable to locate another device to remove & re apply. Surrounding skin cleansed with CHG,Tegaderm applied to secure flange to skin. No further leaking from device.
--- NOTE | 2020-09-29 22:00 | NUR ---
Wound care rendered. Scrotal/katelin rectal dressing changed. Drainage is green. Tissue to penile shaft is black. Inside wound tissue is pink. Wound packed with saline moist kerlix & topped with ABD padsx2. Pt tolerated procedure well.
[2020-09-29] MEDS: temazepam 15mg capsule CORPAK PRN (22:57)
[2020-09-30] VITALS (24 sets, daily range): BP systolic 109–143; BP diastolic 56–76
--- NOTE | 2020-09-30 00:29 | NUR ---
Call placed to TRAIN ANNOUNCER. Pt grabbing & picking at scrotal packing. Restraint orders placed.
[2020-09-30] MEDS: HYDROmorphone/NS 1 mg/ml CADD 50 ML IV SCH ×12 (01:00→23:00)
[2020-09-30] MEDS: insulin regular, human U-100 3ml vial - multi-dose SQ SCH ×4 (02:29→19:49)
[2020-09-30] MEDS: ipratropium/albuterol 3ml nebule NEB SCH ×4 (03:34→20:27)
[2020-09-30 03:35] LABS: BASOPHILS # (AUTO) 0.1 X10'3 (0-0.2); EOSINOPHILS # (AUTO) 0.1 X10'3 (0-0.9); EOSINOPHILS % (AUTO) 0.7 % (0-6); MEAN PLATELET VOLUME 8.5 FL (7.4-10.4); RED BLOOD COUNT 2.55 X10'6 (4.70-6.10)
[2020-09-30 03:37] LABS: BASOPHILS % (AUTO) 0.3 % (0-1); HEMATOCRIT 23.6 % (42.0-52.0); HEMOGLOBIN 7.6 g/dl (14.0-17.9); LYMPHOCYTES # (AUTO) 1.2 X10'3 (1.1-4.8); LYMPHOCYTES % (AUTO) 5.8 % (21-51); MEAN CORPUSCULAR HEMOGLOBIN 29.7 PG (27.0-31.0); MEAN CORPUSCULAR HGB CONC 32.1 g/dL (33.0-36.5); MEAN CORPUSCULAR VOLUME 92.3 FL (78-98); MONOCYTES # (AUTO) 1.4 X10'3 (0-0.9); MONOCYTES % (AUTO) 6.5 % (2-12); NEUTROPHILS # (AUTO) 18.6 X10'3 (1.8-7.7); NEUTROPHILS % (AUTO) 86.7 % (42-75); PLATELET COUNT 818 X10'3 (140-440); RED CELL DISTRIBUTION WIDTH 17.9 % (11.5-14.5); WHITE BLOOD COUNT 21.4 X10'3 (4.5-11.0)
[2020-09-30 03:53] LABS: ALANINE AMINOTRANSFERASE 45 U/L (12-78); ALBUMIN 1.2 G/DL (3.4-5.0); ALBUMIN/GLOBULIN RATIO 0.3 (1.1-1.5); ALKALINE PHOSPHATASE 239 IU/L (46-116); ANION GAP 10 (8-16); ASPARTATE AMINO TRANSFERASE 26 U/L (10-37); BILIRUBIN,TOTAL 0.5 MG/DL (0.1-1.0); BLOOD UREA NITROGEN 95 MG/DL (7-18); BUN/CREATININE RATIO 29.9 (5.4-32.0); CALCIUM 7.6 MG/DL (8.5-10.1); CHLORIDE 115 MMOL/L (99-107); CREATININE 3.18 MG/DL (0.60-1.10); GLUCOSE 148 MG/DL (70-104); MAGNESIUM 1.7 MG/DL (1.5-2.4); PHOSPHORUS 3.2 MG/DL (2.3-4.5); POTASSIUM 3.4 MMOL/L (3.5-5.1); PREALBUMIN 15.5 MG/DL (19-36); SODIUM 150 MMOL/L (135-145); TOTAL CARBON DIOXIDE 24.6 MMOL/L (24-32); TOTAL PROTEIN 4.7 G/DL (6.4-8.2); TRIGLYCERIDES 151 MG/DL (20-135); eGFR 19 ML/MIN
[2020-09-30] MEDS: sodium chloride 0.45% 1,000 ML IV SCH (03:55)
[2020-09-30] MEDS: potassium Cl 20mEq/100mL bag 100 ML IV PRN (04:32)
--- NOTE | 2020-09-30 05:00 | NUR ---
Ostomy bag completely changed out. drainage pouch connected to drainage bag. CHG bath rendered, sacral wound re dressed/repacked.
[2020-09-30 05:25] LABS: TOTAL CELLS COUNTED 100
[2020-09-30 05:26] LABS: ANISOCYTOSIS 1+; GIANT PLATELET FEW; LARGE PLATELETS FEW; PLATELET ESTIMATE INCREASED
[2020-09-30 05:27] LABS: POLYCHROMASIA 1+; ROULEAUX 1+; TARGET CELLS FEW
[2020-09-30 05:28] LABS: ACANTHOCYTES FEW; STOMATOCYTES FEW
--- NOTE | 2020-09-30 06:28 | NUR ---
Problems reprioritized. Patient report given, questions answered & plan of care reviewed with Chasity HILL.
--- NOTE | 2020-09-30 06:32 | NUR ---
Patient in room ICU 2042. I have received report from SERGIO Shen and had the opportunity to ask questions and assume patient care.
[2020-09-30] MEDS: lactobacillus rhamnosus 10,000 MMU CELLS/CAPSULE CORPAK SCH ×2 (08:25→19:28)
[2020-09-30] MEDS: famotidine 20mg tablet CORPAK SCH ×2 (08:25→19:36)
[2020-09-30] MEDS: levoTHYROXINE 25mcg tablet CORPAK SCH (08:25)
[2020-09-30] MEDS: fluconazole-Diflucan 200mg/NS 100 ML IV SCH (08:26)
[2020-09-30] MEDS: nystatin 15 GM powder TP SCH ×2 (08:33→19:36)
[2020-09-30] MEDS: ARGININE/GLUTAMINE/CALCIUM BMB (JUVEN 19.3GM PKT) 1 EACH POWD.PACK PO SCH ×2 (08:50→19:24)
[2020-09-30] MEDS: aspirin 81mg tablet.DR PO SCH (11:38)
[2020-09-30 15:23] LABS: C DIFF ANTIGEN NEGATIVE (NEGATIVE); C DIFF SPECIMEN=DIARRHEA? ACCEPTABLE; C DIFFICILE TOXINS A&B NEGATIVE (Neg)
[2020-09-30] MEDS: dextrose 5%-1/4 normal saline 1,000 ML IV SCH ×2 (17:04→18:50)
--- NOTE | 2020-09-30 18:20 | NUR ---
Patient in room ICU 2042. I have received report and had the opportunity to ask questions and assume patient care. Pt received confused. On room air O2 sat is 96%. Rhythm is sinus with frequent PAC's HR 98. Corpak to right nares with tube feedings Vital HP @ 80ml/hr. HOB is elevated 30 degrees. Left chest tunneled Scout cath with D5.2 NACL @ 100ml/hr. Red port is saline locked and clamped. Left abdominal colostomy bag drains brown liquid stool. Scrotal/perirectal dressing is intact. Paez drains cloudy yellow urine. Safety precautions observed. Bed brakes on & bed is in low position with side rails up x4. Bilateral water wings are secure with bilateral soft wrist restraints as pt grabs at tubings, monitoring equipment and pulls at scrotal packing. Unable to orient patient. Pt is fixated on going in the hot tub outside and does not believe he is in the hospital. Constant yelling for help to go outside. Refuses dinner.
--- NOTE | 2020-09-30 18:22 | NUR ---
Problems reprioritized. Patient report given, questions answered & plan of care reviewed with SERGIO Shen.
[2020-09-30] MEDS: enoxaparin 30mg/0.3ml syringe SUBCUT SCH (19:28)
[2020-09-30] MEDS: insulin glargine (Lantus) pen - multi-dose SQ SCH (19:53)
[2020-09-30] MEDS: traZODone 50mg tablet PO SCH (21:01)
[2020-09-30] MEDS: temazepam 15mg capsule CORPAK PRN (23:29)
[2020-10-01] VITALS (16 sets, daily range): BP systolic 93–136; BP diastolic 52–76
[2020-10-01] MEDS: HYDROmorphone/NS 1 mg/ml CADD 50 ML IV SCH ×12 (01:00→23:00)
[2020-10-01] MEDS: insulin regular, human U-100 3ml vial - multi-dose SQ SCH ×2 (01:53→22:17)
[2020-10-01] MEDS: ipratropium/albuterol 3ml nebule NEB SCH ×4 (02:13→21:00)
[2020-10-01 02:42] LABS: BASOPHILS # (AUTO) 0.1 X10'3 (0-0.2); EOSINOPHILS # (AUTO) 0.1 X10'3 (0-0.9); EOSINOPHILS % (AUTO) 0.7 % (0-6); HEMATOCRIT 23.5 % (42.0-52.0); HEMOGLOBIN 7.4 g/dl (14.0-17.9); MONOCYTES # (AUTO) 1.5 X10'3 (0-0.9)
[2020-10-01 02:44] LABS: BASOPHILS % (AUTO) 0.3 % (0-1); LYMPHOCYTES # (AUTO) 1.1 X10'3 (1.1-4.8); LYMPHOCYTES % (AUTO) 5.3 % (21-51); MEAN CORPUSCULAR HEMOGLOBIN 28.9 PG (27.0-31.0); MEAN CORPUSCULAR HGB CONC 31.7 g/dL (33.0-36.5); MEAN CORPUSCULAR VOLUME 91.3 FL (78-98); MEAN PLATELET VOLUME 8.4 FL (7.4-10.4); MONOCYTES % (AUTO) 7.3 % (2-12); NEUTROPHILS # (AUTO) 17.7 X10'3 (1.8-7.7); NEUTROPHILS % (AUTO) 86.4 % (42-75); PLATELET COUNT 861 X10'3 (140-440); RED BLOOD COUNT 2.57 X10'6 (4.70-6.10); RED CELL DISTRIBUTION WIDTH 18.2 % (11.5-14.5); WHITE BLOOD COUNT 20.5 X10'3 (4.5-11.0)
[2020-10-01] MEDS: dextrose 5%-1/4 normal saline 1,000 ML IV SCH ×2 (02:57→14:50)
[2020-10-01 03:05] LABS: ALANINE AMINOTRANSFERASE 42 U/L (12-78); ALBUMIN 1.1 G/DL (3.4-5.0); ALBUMIN/GLOBULIN RATIO 0.3 (1.1-1.5); ANION GAP 12 (8-16); ASPARTATE AMINO TRANSFERASE 22 U/L (10-37); BILIRUBIN,TOTAL 0.5 MG/DL (0.1-1.0); BLOOD UREA NITROGEN 94 MG/DL (7-18); BUN/CREATININE RATIO 32.8 (5.4-32.0); CALCIUM 7.8 MG/DL (8.5-10.1); CHLORIDE 114 MMOL/L (99-107); CREATININE 2.87 MG/DL (0.60-1.10); GLUCOSE 158 MG/DL (70-104); MAGNESIUM 1.5 MG/DL (1.5-2.4); PHOSPHORUS 2.6 MG/DL (2.3-4.5); SODIUM 150 MMOL/L (135-145); TOTAL CARBON DIOXIDE 24.4 MMOL/L (24-32); TOTAL PROTEIN 4.6 G/DL (6.4-8.2); eGFR 21 ML/MIN
[2020-10-01] MEDS: POTASSIUM BICARB 20meq eff tab 20 MEQ TABLET.EFF CORPAK PRN ×4 (03:36→22:13)
[2020-10-01 03:56] LABS: ALKALINE PHOSPHATASE 242 IU/L (46-116)
[2020-10-01 06:27] LABS: ANISOCYTOSIS 2+; PLATELET ESTIMATE INCREASED; POIKILOCYTOSIS FEW; SCHISTOCYTES FEW
--- NOTE | 2020-10-01 06:47 | NUR ---
Problems reprioritized. Patient report given, questions answered & plan of care reviewed with Odette HILL.
[2020-10-01] MEDS: fluconazole-Diflucan 200mg/NS 100 ML IV SCH (09:27)
[2020-10-01] MEDS: levoTHYROXINE 25mcg tablet CORPAK SCH ×2 (09:28→09:41)
[2020-10-01] MEDS: aspirin 81mg tablet.DR PO SCH ×2 (09:28→09:41)
[2020-10-01] MEDS: famotidine 20mg tablet CORPAK SCH ×2 (09:28→09:41)
[2020-10-01] MEDS: nystatin 15 GM powder TP SCH ×2 (09:31→22:13)
[2020-10-01] MEDS: potassium Cl 20mEq/100mL bag 100 ML IV PRN (09:34)
[2020-10-01] MEDS: lactobacillus rhamnosus 10,000 MMU CELLS/CAPSULE CORPAK SCH ×2 (09:41→22:14)
[2020-10-01] MEDS: ARGININE/GLUTAMINE/CALCIUM BMB (JUVEN 19.3GM PKT) 1 EACH POWD.PACK PO SCH ×2 (10:35→22:19)
--- NOTE | 2020-10-01 12:33 | NUR ---
TF Consult: TF at goal rate 80 ml/hr on 09/30. High colostomy output 09/30 up to 2450 ml. Recommend starting imodium, d/w RN. Pt advanced to pureed/thin diet per CLAIM TRAINEE recs, poor PO intake, refusing meals, receiving assistance. Given functional gut and increased protein needs for wound healing w/ poor PO pt to have corpak placed for supplemental EN in addition to PO. Yao BID w/ free water flushes to start given pt wound healing needs. Rec: 1. NGTF via corpak using Vital High Protein at 80ml/hr goal; to provide 1920ml volume, 1920kcals, 1613ml free water, and 168g protein. 2. additional water flush 200ml q 4 hours 3. continue pureed/thin diet per CLAIM TRAINEE recs; encourage PO w/ assistance given ALOC 4. PALB Q /; daily wts 5. Yao packet BID w/ EN for wound healing. Mix 1 packet yao w/ 120ml free water and flush tube w/ 40ml free water before and after administration. 5. Only wean EN IF consistent PO 65% avg meals given wound healing needs and ALOC 6. bowel care per rx 7. Colostomy nutrition therapy education following extubation once stable and appropriate Addendum: 10/01/20 at [address] Amended: Links added.
--- NOTE | 2020-10-01 17:00 | NUR ---
1700 CADD Pump check not donr as the nurse had another pt down the vaca and he got multiple orders and interventions the timing was too close to 1900 and NOC shift nurse taking over.
--- NOTE | 2020-10-01 18:50 | NUR ---
Patient in room ICU 2042. I have received report from Odette HILL and had the opportunity to ask questions and assume patient care.
[2020-10-01] MEDS: enoxaparin 30mg/0.3ml syringe SUBCUT SCH (22:13)
[2020-10-01] MEDS: traZODone 50mg tablet PO SCH (22:14)
[2020-10-01] MEDS: insulin glargine (Lantus) pen - multi-dose SQ SCH (22:19)
[2020-10-02] VITALS (23 sets, daily range): BP systolic 98–129; BP diastolic 55–73
[2020-10-02] MEDS: temazepam 15mg capsule CORPAK PRN (00:32)
[2020-10-02] MEDS: HYDROmorphone/NS 1 mg/ml CADD 50 ML IV SCH ×10 (01:00→23:00)
[2020-10-02] MEDS: dextrose 5%-1/4 normal saline 1,000 ML IV SCH ×3 (01:30→23:13)
[2020-10-02] MEDS: ipratropium/albuterol 3ml nebule NEB SCH ×4 (02:25→22:00)
[2020-10-02] MEDS: insulin regular, human U-100 3ml vial - multi-dose SQ SCH ×4 (03:59→20:18)
[2020-10-02 04:00] LABS: BASOPHILS # (AUTO) 0.1 X10'3 (0-0.2); HEMOGLOBIN 7.8 g/dl (14.0-17.9); MEAN PLATELET VOLUME 8.3 FL (7.4-10.4); MONOCYTES # (AUTO) 1.6 X10'3 (0-0.9); NEUTROPHILS # (AUTO) 18.2 X10'3 (1.8-7.7)
[2020-10-02 04:03] LABS: BASOPHILS % (AUTO) 0.4 % (0-1); EOSINOPHILS # (AUTO) 0.2 X10'3 (0-0.9); EOSINOPHILS % (AUTO) 0.8 % (0-6); HEMATOCRIT 24.7 % (42.0-52.0); LYMPHOCYTES # (AUTO) 1.5 X10'3 (1.1-4.8); LYMPHOCYTES % (AUTO) 6.8 % (21-51); MEAN CORPUSCULAR HEMOGLOBIN 28.4 PG (27.0-31.0); MEAN CORPUSCULAR HGB CONC 31.4 g/dL (33.0-36.5); MEAN CORPUSCULAR VOLUME 90.6 FL (78-98); MONOCYTES % (AUTO) 7.3 % (2-12); NEUTROPHILS % (AUTO) 84.7 % (42-75); PLATELET COUNT 949 X10'3 (140-440); RED BLOOD COUNT 2.73 X10'6 (4.70-6.10); RED CELL DISTRIBUTION WIDTH 18.5 % (11.5-14.5); WHITE BLOOD COUNT 21.5 X10'3 (4.5-11.0)
[2020-10-02 04:09] LABS: ALANINE AMINOTRANSFERASE 52 U/L (12-78); ALBUMIN 1.3 G/DL (3.4-5.0); ALBUMIN/GLOBULIN RATIO 0.4 (1.1-1.5); ALKALINE PHOSPHATASE 300 IU/L (46-116); ANION GAP 10 (8-16); ASPARTATE AMINO TRANSFERASE 37 U/L (10-37); BILIRUBIN,TOTAL 0.5 MG/DL (0.1-1.0); BLOOD UREA NITROGEN 84 MG/DL (7-18); BUN/CREATININE RATIO 37.5 (5.4-32.0); CALCIUM 7.5 MG/DL (8.5-10.1); CHLORIDE 114 MMOL/L (99-107); CREATININE 2.24 MG/DL (0.60-1.10); GLUCOSE 160 MG/DL (70-104); MAGNESIUM 1.4 MG/DL (1.5-2.4); PHOSPHORUS 2.4 MG/DL (2.3-4.5); POTASSIUM 3.3 MMOL/L (3.5-5.1); SODIUM 148 MMOL/L (135-145); TOTAL CARBON DIOXIDE 23.9 MMOL/L (24-32); TOTAL PROTEIN 4.8 G/DL (6.4-8.2); eGFR 29 ML/MIN
[2020-10-02] MEDS: POTASSIUM BICARB 20meq eff tab 20 MEQ TABLET.EFF CORPAK PRN ×3 (05:19→14:07)
--- NOTE | 2020-10-02 06:57 | NUR ---
Problems reprioritized. Patient report given, questions answered & plan of care reviewed with Nayeli HILL.
[2020-10-02] MEDS: ARGININE/GLUTAMINE/CALCIUM BMB (JUVEN 19.3GM PKT) 1 EACH POWD.PACK PO SCH ×2 (08:00→20:00)
[2020-10-02] MEDS: fluconazole-Diflucan 200mg/NS 100 ML IV SCH (09:58)
[2020-10-02] MEDS: nystatin 15 GM powder TP SCH ×2 (09:58→20:00)
[2020-10-02] MEDS: lactobacillus rhamnosus 10,000 MMU CELLS/CAPSULE CORPAK SCH (09:59)
[2020-10-02] MEDS: famotidine 20mg tablet CORPAK SCH (09:59)
[2020-10-02 10:27] LABS: TOTAL CELLS COUNTED 100
[2020-10-02 10:34] LABS: ANISOCYTOSIS 2+; PLATELET ESTIMATE INCREASED
[2020-10-02 10:35] LABS: BURR CELLS FEW; HYPOCHROMASIA 1+; LARGE PLATELETS FEW; POLYCHROMASIA 1+; STOMATOCYTES FEW
[2020-10-02] MEDS: magnesium 2GM in 50ml NS 50 ML IV PRN (11:07)
[2020-10-02] MEDS ORDERED: piperacillin/tazo 3.375gm/50ml 50 ML IV SCH (12:55)
[2020-10-02] MEDS ORDERED: dextrose ORAL solution 15 GM/59 ML bottle OGT PRN ×2 (12:55)
[2020-10-02] MEDS ORDERED: temazepam 15mg capsule OGT PRN (12:55)
[2020-10-02] MEDS ORDERED: Neutra Phos packet PO PRN (12:55)
[2020-10-02] MEDS ORDERED: Dextrose 10%-water IV solution 1,000 ML IV PRN (12:55)
[2020-10-02] MEDS ORDERED: acetaminophen 325mg/10.15ml oral unit dose solution OGT PRN ×2 (12:55)
[2020-10-02] MEDS ORDERED: POTASSIUM BICARB 20meq eff tab 20 MEQ TABLET.EFF OGT PRN ×2 (12:55)
[2020-10-02 14:49] LABS: BASOPHILS # (AUTO) 0.1 X10'3 (0-0.2); BASOPHILS % (AUTO) 0.5 % (0-1); HEMOGLOBIN 8.1 g/dl (14.0-17.9); MEAN PLATELET VOLUME 8.1 FL (7.4-10.4)
[2020-10-02 14:51] LABS: EOSINOPHILS # (AUTO) 0.1 X10'3 (0-0.9); EOSINOPHILS % (AUTO) 0.4 % (0-6); HEMATOCRIT 25.3 % (42.0-52.0); LYMPHOCYTES # (AUTO) 1.3 X10'3 (1.1-4.8); LYMPHOCYTES % (AUTO) 4.9 % (21-51); MEAN CORPUSCULAR HEMOGLOBIN 29.1 PG (27.0-31.0); MEAN CORPUSCULAR HGB CONC 32.1 g/dL (33.0-36.5); MEAN CORPUSCULAR VOLUME 90.6 FL (78-98); MONOCYTES # (AUTO) 1.6 X10'3 (0-0.9); MONOCYTES % (AUTO) 6.2 % (2-12); NEUTROPHILS # (AUTO) 22.6 X10'3 (1.8-7.7); RED BLOOD COUNT 2.79 X10'6 (4.70-6.10); RED CELL DISTRIBUTION WIDTH 18.5 % (11.5-14.5)
[2020-10-02 14:55] LABS: PLATELET COUNT 1011 X10'3 (140-440); WHITE BLOOD COUNT 25.7 X10'3 (4.5-11.0)
--- NOTE | 2020-10-02 15:12 | NUR ---
Critical Labs: WBC 25.[address] Norman notified via phone. No new orders at this time.
[2020-10-02] MEDS: famotidine/PF 10 mg/ml inj IV SCH ×2 (15:51→20:06)
[2020-10-02] MEDS: levoTHYROXINE sod inj. 100mcg/5 ml vial IV SCH (15:51)
--- NOTE | 2020-10-02 16:00 | NUR ---
Patient agitated, yelling out that he wanted to go to a different hospital and that he wanted to talk to his grand-daughter Rita. A phone was provided, he was repeating same complaints to family. This nurse spoke with Rita on phone, she stated at times at home patient would have angry outbursts. Patient also refused wound care at this time. Will continue to monitor
--- NOTE | 2020-10-02 17:00 | NUR ---
Problems reprioritized. Patient report given, questions answered & plan of care reviewed with SERGIO Gaspar.
[2020-10-02 17:55] LABS: POTASSIUM 3.4 MMOL/L (3.5-5.1)
--- NOTE | 2020-10-02 18:10 | NUR ---
Patient in room ICU 2042. I have received report from Sandy HILL and had the opportunity to ask questions and assume patient care.
--- NOTE | 2020-10-02 18:31 | NUR ---
Problems reprioritized. Patient report given, questions answered & plan of care reviewed with SERGIO Dewitt.
--- NOTE | 2020-10-02 20:00 | NUR ---
Spoke with pharmacy about patient's order for IV Zosyn. Dayshift was unable to start Zosyn dose until 1551 due to limited vascular access and electrolyte replacement that warranted priority infusion. Day shift nurse reported that the day shift pharmacist said to skip the midnight dose. Spoke to plant operator/shift supervisor pharmacist to see how to properly adjust times because the Zosyn order is now ordered by Dr. Vera for 3 times a day. Pharmacy said to skip midnight dose and start the usual 0800 dose at 0700 and then continue dosing as scheduled/ordered.
[2020-10-02] MEDS: traZODone 50mg tablet PO SCH (20:05)
[2020-10-02] MEDS: enoxaparin 30mg/0.3ml syringe SUBCUT SCH (20:13)
[2020-10-02] MEDS: insulin glargine (Lantus) pen - multi-dose SQ SCH (23:17)
[2020-10-03] VITALS (19 sets, daily range): BP systolic 105–127; BP diastolic 51–77
[2020-10-03] MEDS: temazepam 15mg capsule CORPAK PRN ×2 (00:50→21:15)
[2020-10-03] MEDS: HYDROmorphone/NS 1 mg/ml CADD 50 ML IV SCH ×12 (01:00→23:00)
[2020-10-03] MEDS: insulin regular, human U-100 3ml vial - multi-dose SQ SCH ×4 (02:28→22:05)
[2020-10-03 03:17] LABS: MEAN CORPUSCULAR HEMOGLOBIN 28.7 PG (27.0-31.0); MEAN PLATELET VOLUME 8.5 FL (7.4-10.4)
[2020-10-03 03:20] LABS: BASOPHILS % (AUTO) 0.2 % (0-1); EOSINOPHILS % (AUTO) 0.2 % (0-6); LYMPHOCYTES # (AUTO) 1.2 X10'3 (1.1-4.8); LYMPHOCYTES % (AUTO) 4.8 % (21-51); MEAN CORPUSCULAR HGB CONC 32.1 g/dL (33.0-36.5); MEAN CORPUSCULAR VOLUME 89.7 FL (78-98); MONOCYTES # (AUTO) 1.2 X10'3 (0-0.9); MONOCYTES % (AUTO) 4.8 % (2-12); NEUTROPHILS # (AUTO) 22.7 X10'3 (1.8-7.7); PLATELET COUNT 977 X10'3 (140-440); RED BLOOD COUNT 2.79 X10'6 (4.70-6.10); RED CELL DISTRIBUTION WIDTH 18.3 % (11.5-14.5)
[2020-10-03 03:24] LABS: ALANINE AMINOTRANSFERASE 51 U/L (12-78); ALBUMIN 1.2 G/DL (3.4-5.0); ALBUMIN/GLOBULIN RATIO 0.3 (1.1-1.5); ALKALINE PHOSPHATASE 257 IU/L (46-116); ANION GAP 13 (8-16); ASPARTATE AMINO TRANSFERASE 31 U/L (10-37); BILIRUBIN,TOTAL 0.5 MG/DL (0.1-1.0); BLOOD UREA NITROGEN 69 MG/DL (7-18); BUN/CREATININE RATIO 33.7 (5.4-32.0); CALCIUM 7.3 MG/DL (8.5-10.1); CHLORIDE 112 MMOL/L (99-107); CREATININE 2.05 MG/DL (0.60-1.10); GLUCOSE 124 MG/DL (70-104); MAGNESIUM 2.1 MG/DL (1.5-2.4); SODIUM 147 MMOL/L (135-145); TOTAL PROTEIN 4.9 G/DL (6.4-8.2); eGFR 32 ML/MIN
[2020-10-03] MEDS: POTASSIUM BICARB 20meq eff tab 20 MEQ TABLET.EFF CORPAK PRN ×3 (04:06→16:10)
[2020-10-03 04:17] LABS: WHITE BLOOD COUNT 25.3 X10'3 (4.5-11.0)
[2020-10-03] MEDS: ipratropium/albuterol 3ml nebule NEB SCH ×4 (04:22→22:17)
--- NOTE | 2020-10-03 04:51 | NUR ---
Sent message to pharmacy and asked them to make sodium phos replacement so that it will be available for IV replacement.
--- NOTE | 2020-10-03 06:37 | NUR ---
Problems reprioritized. Patient report given, questions answered & plan of care reviewed with Nayeli HILL. Patient stable at transfer of care
[2020-10-03] MEDS: dextrose 5%-1/4 normal saline 1,000 ML IV SCH ×2 (06:50→16:50)
[2020-10-03 07:09] LABS: ANISOCYTOSIS 2+; HYPOCHROMASIA 1+; PLATELET ESTIMATE INCREASED; POLYCHROMASIA 1+; TOTAL CELLS COUNTED 100
[2020-10-03 07:10] LABS: BURR CELLS 1+; LARGE PLATELETS FEW; TOXIC GRANULATION 1+
[2020-10-03] MEDS: ARGININE/GLUTAMINE/CALCIUM BMB (JUVEN 19.3GM PKT) 1 EACH POWD.PACK PO SCH ×2 (08:00→20:00)
[2020-10-03] MEDS: levoTHYROXINE 25mcg tablet CORPAK SCH (08:59)
[2020-10-03] MEDS: piperacillin/tazo 3.375gm/50ml 50 ML IV SCH ×4 (09:00→23:58)
[2020-10-03] MEDS: famotidine/PF 10 mg/ml inj IV SCH ×2 (09:00→21:05)
[2020-10-03] MEDS: fluconazole-Diflucan 200mg/NS 100 ML IV SCH (09:00)
[2020-10-03] MEDS: aspirin 81mg tablet.DR PO SCH (09:01)
[2020-10-03] MEDS: nystatin 15 GM powder TP SCH ×2 (09:02→20:00)
--- NOTE | 2020-10-03 17:35 | NUR ---
Patient in room PCU 3025. I have received report from SHEILA HILL and had the opportunity to ask questions and assume patient care.
--- NOTE | 2020-10-03 17:45 | NUR ---
Report called to Donald RN on PCU, will transfer patient and continue to monitor.
--- NOTE | 2020-10-03 18:47 | NUR ---
Problems reprioritized. Patient report given, questions answered & plan of care reviewed with VAZQUEZ HILL.
[2020-10-03] MEDS: enoxaparin 30mg/0.3ml syringe SUBCUT SCH (21:05)
[2020-10-03] MEDS: lactobacillus rhamnosus 10,000 MMU CELLS/CAPSULE PO SCH ×2 (21:05→21:15)
[2020-10-03] MEDS: traZODone 50mg tablet PO SCH (21:15)
[2020-10-03] MEDS: insulin glargine (Lantus) pen - multi-dose SQ SCH (22:08)
[2020-10-04] MEDS: HYDROmorphone/NS 1 mg/ml CADD 50 ML IV SCH ×12 (00:44→23:00)
[2020-10-04] MEDS: POTASSIUM BICARB 20meq eff tab 20 MEQ TABLET.EFF CORPAK PRN (00:56)
[2020-10-04] MEDS: insulin regular, human U-100 3ml vial - multi-dose SQ SCH ×4 (02:18→20:58)
[2020-10-04] MEDS: ipratropium/albuterol 3ml nebule NEB SCH ×4 (02:43→21:00)
[2020-10-04 06:00] VITALS: BP 120/67
[2020-10-04 06:29] LABS: ALANINE AMINOTRANSFERASE 47 U/L (12-78); ALBUMIN 1.2 G/DL (3.4-5.0); ALBUMIN/GLOBULIN RATIO 0.3 (1.1-1.5); ALKALINE PHOSPHATASE 231 IU/L (46-116); ANION GAP 10 (8-16); ASPARTATE AMINO TRANSFERASE 23 U/L (10-37); BILIRUBIN,TOTAL 0.6 MG/DL (0.1-1.0); BLOOD UREA NITROGEN 75 MG/DL (7-18); BUN/CREATININE RATIO 33.2 (5.4-32.0); CALCIUM 7.9 MG/DL (8.5-10.1); CHLORIDE 111 MMOL/L (99-107); CREATININE 2.26 MG/DL (0.60-1.10); GLUCOSE 103 MG/DL (70-104); MAGNESIUM 1.7 MG/DL (1.5-2.4); PHOSPHORUS 2.2 MG/DL (2.3-4.5); POTASSIUM 3.6 MMOL/L (3.5-5.1); SODIUM 146 MMOL/L (135-145); TOTAL CARBON DIOXIDE 24.9 MMOL/L (24-32); TOTAL PROTEIN 4.9 G/DL (6.4-8.2); eGFR 28 ML/MIN
--- NOTE | 2020-10-04 07:00 | NUR ---
Patient in room PCU 3025. I have received report from Candido HILL and had the opportunity to ask questions and assume patient care.
--- NOTE | 2020-10-04 07:07 | NUR ---
Problems reprioritized. Patient report given, questions answered & plan of care reviewed with NIR. Addendum: 10/04/20 at 0707 by Kit Polanco RN Amended: Links added.
[2020-10-04] MEDS: ARGININE/GLUTAMINE/CALCIUM BMB (JUVEN 19.3GM PKT) 1 EACH POWD.PACK PO SCH ×2 (08:00→20:52)
[2020-10-04] MEDS: dextrose 5%-1/4 normal saline 1,000 ML IV SCH ×2 (08:01)
[2020-10-04] MEDS: famotidine/PF 10 mg/ml inj IV SCH (08:05)
[2020-10-04] MEDS: fluconazole-Diflucan 200mg/NS 100 ML IV SCH (08:06)
[2020-10-04] MEDS: levoTHYROXINE sod inj. 100mcg/5 ml vial IV SCH (08:11)
[2020-10-04] MEDS: aspirin 81mg tablet.DR PO SCH (08:14)
[2020-10-04] MEDS: piperacillin/tazo 3.375gm/50ml 50 ML IV SCH ×3 (09:56→23:48)
[2020-10-04 11:00] VITALS: BP 119/61
[2020-10-04] MEDS: nystatin 15 GM powder TP SCH ×2 (12:58→21:04)
--- NOTE | 2020-10-04 14:45 | NUR ---
Per Pharmacist ernestina Byrd to run D51/4NS, Na Phos IV, dilaudid CADD, and Zosyn in same line at once.
[2020-10-04 15:00] VITALS: BP 119/61
--- NOTE | 2020-10-04 15:06 | NUR ---
spoke with patient's granddaughter, Rita Mart per phone call, update given.
--- NOTE | 2020-10-04 15:09 | NUR ---
Pt instructed and encouraged to use CADD STITCH BONDING MACHINE DRAWER IN. Pt verbalizes understanding but uses CADD only occasionally. Will continue to monitor.
[2020-10-04] MEDS: sodium phosphate inj. 15 MMOL in dextrose 5%-water 250 ML IV PRN (15:51)
[2020-10-04 18:00] VITALS: BP 117/58
--- NOTE | 2020-10-04 18:30 | NUR ---
Problems reprioritized. Patient report given, questions answered & plan of care reviewed with Yoselin Ruano RN.
--- NOTE | 2020-10-04 18:40 | NUR ---
Patient in room PCU 3025. I have received report from SERGIO Sanders and had the opportunity to ask questions and assume patient care
[2020-10-04] MEDS: lactobacillus rhamnosus 10,000 MMU CELLS/CAPSULE PO SCH (20:51)
[2020-10-04] MEDS: traZODone 50mg tablet PO SCH (20:51)
[2020-10-04] MEDS: temazepam 15mg capsule CORPAK PRN (20:51)
[2020-10-04] MEDS: enoxaparin 30mg/0.3ml syringe SUBCUT SCH (20:54)
[2020-10-04] MEDS: insulin glargine (Lantus) pen - multi-dose SQ SCH (20:57)
[2020-10-04 22:00] VITALS: BP 113/62
--- NOTE | 2020-10-04 23:56 | NUR ---
New tube feeding hung, line changed.
[2020-10-05] MEDS: HYDROmorphone/NS 1 mg/ml CADD 50 ML IV SCH ×12 (01:00→23:00)
[2020-10-05 02:00] VITALS: BP 112/62
[2020-10-05] MEDS: ipratropium/albuterol 3ml nebule NEB SCH ×5 (02:16→21:00)
[2020-10-05] MEDS: insulin regular, human U-100 3ml vial - multi-dose SQ SCH ×3 (02:46→18:57)
--- NOTE | 2020-10-05 05:05 | NUR ---
Dressings to perineum and sacrum changed per orders.
[2020-10-05 06:00] VITALS: BP 108/70
--- NOTE | 2020-10-05 06:35 | NUR ---
Problems reprioritized. Patient report given, questions answered & plan of care reviewed with SERGIO Wilks.
[2020-10-05 06:39] LABS: ALANINE AMINOTRANSFERASE 46 U/L (12-78); ALBUMIN 1.2 G/DL (3.4-5.0); ALBUMIN/GLOBULIN RATIO 0.3 (1.1-1.5); ALKALINE PHOSPHATASE 231 IU/L (46-116); ANION GAP 14 (8-16); ASPARTATE AMINO TRANSFERASE 27 U/L (10-37); BILIRUBIN,TOTAL 0.6 MG/DL (0.1-1.0); BLOOD UREA NITROGEN 74 MG/DL (7-18); BUN/CREATININE RATIO 31.9 (5.4-32.0); CALCIUM 8.1 MG/DL (8.5-10.1); CHLORIDE 114 MMOL/L (99-107); CREATININE 2.32 MG/DL (0.60-1.10); GLUCOSE 58 MG/DL (70-104); MAGNESIUM 1.6 MG/DL (1.5-2.4); PHOSPHORUS 3.7 MG/DL (2.3-4.5); SODIUM 151 MMOL/L (135-145); TOTAL CARBON DIOXIDE 22.8 MMOL/L (24-32); TOTAL PROTEIN 5.3 G/DL (6.4-8.2); eGFR 27 ML/MIN
[2020-10-05] MEDS: POTASSIUM BICARB 20meq eff tab 20 MEQ TABLET.EFF CORPAK PRN ×3 (07:16→21:02)
[2020-10-05] MEDS: nystatin 15 GM powder TP SCH ×2 (07:20→20:00)
[2020-10-05] MEDS: ARGININE/GLUTAMINE/CALCIUM BMB (JUVEN 19.3GM PKT) 1 EACH POWD.PACK PO SCH ×2 (08:00→20:00)
[2020-10-05] MEDS: fluconazole-Diflucan 200mg/NS 100 ML IV SCH (08:55)
[2020-10-05] MEDS: aspirin 81mg tablet.DR PO SCH (08:55)
[2020-10-05] MEDS: lactobacillus rhamnosus 10,000 MMU CELLS/CAPSULE PO SCH ×2 (08:55→21:02)
[2020-10-05] MEDS: piperacillin/tazo 3.375gm/50ml 50 ML IV SCH ×3 (09:02→23:33)
[2020-10-05 11:00] VITALS: BP 127/64
--- NOTE | 2020-10-05 12:23 | NUR ---
drainage bag for iliostomy emptied, iliostomy leaking. No supplies found at bedside except for paste. cook chief refused to assist. Call & voicemail left for wound care. Patient cleaned up by Rupinder, towels placed under bag with dry flow also, waiting for supplies.
--- NOTE | 2020-10-05 14:51 | NUR ---
Reassessment: Pt continues tolerating TF at goal rate with GRV WNL. Pt s/p BSS today with ST recs pureed food with thin liquids d/t difficulty chewing regular solids. Pt to receive first PO meal at dinner tonight. LBM 10/04 documented with 3200 mL stool output per I&O. Will continue to follow closely and monitor need for further nutrition intervention pending trends in PO intake. Rec: 1. NGTF via corpak using Vital High Protein at 80ml/hr goal; to provide 1920ml volume, 1920kcals, 1613ml free water, and 168g protein. 2. additional water flush 200ml q 4 hours 3. continue pureed/thin diet per OPHTHALMOLOGIST RETINA SPECIALIST recs; encourage PO w/ assistance given ALOC 4. PALB Q /; daily wts 5. Yao packet BID w/ EN for wound healing. Mix 1 packet yao w/ 120ml free water and flush tube w/ 40ml free water before and after administration. 5. Only wean EN IF consistent PO 65% avg meals given wound healing needs and ALOC 6. bowel care per rx 7. Colostomy nutrition therapy education once stable and appropriate Addendum: 10/05/20 at [address] Amended: Links added.
--- NOTE | 2020-10-05 15:00 | NUR ---
Tube feeding is empty and waiting for new bottle from dietary.
[2020-10-05 17:30] VITALS: BP 127/64
[2020-10-05 18:00] VITALS: BP 138/70
--- NOTE | 2020-10-05 18:00 | NUR ---
Patient in room PCU 3025. I have received report from Lashaun HILL and had the opportunity to ask questions and assume patient care.
--- NOTE | 2020-10-05 18:25 | NUR ---
Report to noc RN
[2020-10-05] MEDS: enoxaparin 30mg/0.3ml syringe SUBCUT SCH (21:03)
[2020-10-05] MEDS: traZODone 50mg tablet PO SCH (21:03)
--- NOTE | 2020-10-05 21:13 | NUR ---
GAVE 40MEQ OF EFFER-k IT IS THE THIRD AND FINAL DOSE FOR TODAY
[2020-10-05] MEDS: temazepam 15mg capsule CORPAK PRN (21:37)
[2020-10-05] MEDS: insulin glargine (Lantus) pen - multi-dose SQ SCH (21:51)
[2020-10-05 22:00] VITALS: BP 113/57
--- NOTE | 2020-10-05 22:46 | NUR ---
Called pharmacy to see what Yao 19.3gm packet was and they didn't know so I called down to dietary and no one answered. Looked in patient specific and also kitchen and could not find this, will let day nurse know
[2020-10-06] VITALS (17 sets, daily range): BP systolic 75–138; BP diastolic 50–77
[2020-10-06] MEDS: sodium chloride 0.45% 1,000 ML IV SCH ×3 (00:18→10:27)
[2020-10-06] MEDS: HYDROmorphone/NS 1 mg/ml CADD 50 ML IV SCH ×12 (01:00→23:00)
--- NOTE | 2020-10-06 02:33 | NUR ---
called MD to inform that pt tube feed will be stopped pending supra pubic catheter placement today. states 0.45 % sodium chloride fluid is fine
[2020-10-06] MEDS: ipratropium/albuterol 3ml nebule NEB SCH ×4 (03:00→20:49)
--- NOTE | 2020-10-06 04:49 | NUR ---
turned the tube feed off approximately 0130 for surgery today
--- NOTE | 2020-10-06 06:32 | NUR ---
Patient in room PCU 3025. I have received report from SERGIO Pelaez and had the opportunity to ask questions and assume patient care.
--- NOTE | 2020-10-06 06:36 | NUR ---
Problems reprioritized. Patient report given, questions answered & plan of care reviewed with Gabriela HILL.
[2020-10-06] MEDS: fluconazole-Diflucan 200mg/NS 100 ML IV SCH (07:15)
--- NOTE | 2020-10-06 07:25 | NUR ---
ON HOLD FOR OR. Addendum: 10/06/20 at 0726 by Gabriela Ford RN Amended: Links added.
[2020-10-06] MEDS: ARGININE/GLUTAMINE/CALCIUM BMB (JUVEN 19.3GM PKT) 1 EACH POWD.PACK PO SCH ×2 (08:00→20:00)
[2020-10-06] MEDS: aspirin 81mg tablet.DR PO SCH (08:00)
[2020-10-06] MEDS: lactobacillus rhamnosus 10,000 MMU CELLS/CAPSULE PO SCH ×2 (08:00→23:33)
[2020-10-06] MEDS: nystatin 15 GM powder TP SCH ×2 (08:00→20:00)
[2020-10-06 08:28] LABS: BASOPHILS # (AUTO) 0.1 X10'3 (0-0.2); BASOPHILS % (AUTO) 0.2 % (0-1); EOSINOPHILS # (AUTO) 0.3 X10'3 (0-0.9); EOSINOPHILS % (AUTO) 0.8 % (0-6); HEMATOCRIT 25.5 % (42.0-52.0); HEMOGLOBIN 8.2 g/dl (14.0-17.9); LYMPHOCYTES % (AUTO) 6.5 % (21-51); MEAN CORPUSCULAR HGB CONC 32.3 g/dL (33.0-36.5); MEAN PLATELET VOLUME 8.5 FL (7.4-10.4); MONOCYTES # (AUTO) 1.9 X10'3 (0-0.9); MONOCYTES % (AUTO) 6.4 % (2-12); NEUTROPHILS # (AUTO) 26.1 X10'3 (1.8-7.7); NEUTROPHILS % (AUTO) 86.1 % (42-75); RED BLOOD COUNT 2.83 X10'6 (4.70-6.10); RED CELL DISTRIBUTION WIDTH 18.2 % (11.5-14.5)
--- NOTE | 2020-10-06 08:30 | NUR ---
tube feed on hold for OR. Addendum: 10/06/20 at 0831 by Gabriela Ford RN Amended: Links added.
[2020-10-06 08:32] LABS: PLATELET COUNT 1059 X10'3 (140-440); WHITE BLOOD COUNT 30.3 X10'3 (4.5-11.0)
--- NOTE | 2020-10-06 08:33 | NUR ---
Critical lab: WBC 30.3, Platelets 1059. Notified primary SERGIO Ochoa
--- NOTE | 2020-10-06 09:04 | NUR ---
tape on nose for corpak unraveling. retaped.
[2020-10-06 09:08] LABS: ALANINE AMINOTRANSFERASE 49 U/L (12-78); ALBUMIN 1.2 G/DL (3.4-5.0); ALBUMIN/GLOBULIN RATIO 0.3 (1.1-1.5); ALKALINE PHOSPHATASE 255 IU/L (46-116); ANION GAP 17 (8-16); ASPARTATE AMINO TRANSFERASE 29 U/L (10-37); BILIRUBIN,TOTAL 0.6 MG/DL (0.1-1.0); BLOOD UREA NITROGEN 76 MG/DL (7-18); BUN/CREATININE RATIO 31.7 (5.4-32.0); CALCIUM 8.2 MG/DL (8.5-10.1); CHLORIDE 115 MMOL/L (99-107); GLUCOSE 101 MG/DL (70-104); MAGNESIUM 1.6 MG/DL (1.5-2.4); POTASSIUM 3.4 MMOL/L (3.5-5.1); SODIUM 153 MMOL/L (135-145); TOTAL CARBON DIOXIDE 21.4 MMOL/L (24-32); TOTAL PROTEIN 5.3 G/DL (6.4-8.2); eGFR 26 ML/MIN
[2020-10-06] MEDS: potassium CL 10mEq/100ml bag 100 ML IV PRN ×4 (10:02→14:24)
[2020-10-06] MEDS: piperacillin/tazo 3.375gm/50ml 50 ML IV SCH ×2 (10:02→18:31)
--- NOTE | 2020-10-06 12:10 | NUR ---
on hold for OR. Addendum: 10/06/20 at 1210 by Gabriela Ford RN Amended: Links added.
[2020-10-06] MEDS ORDERED: morphine 2 MG/ML inj. syringe IV PRN (13:05)
[2020-10-06] MEDS ORDERED: morphine 4 MG/ML inj SYRINge IV PRN (13:05)
[2020-10-06] MEDS ORDERED: ringers solution, lacted 1,000 ML IV SCH (13:05)
[2020-10-06] MEDS ORDERED: fentaNYL/PF 50MCG/1 ML 2ML syringe IV PRN ×2 (13:05)
[2020-10-06] MEDS ORDERED: proCHLORperazine 10 MG/2 ml inj IV PRN (13:05)
[2020-10-06] MEDS ORDERED: ondansetron/PF 4mg/2ml inj IV PRN (13:05)
[2020-10-06 14:05] LABS: TOTAL CELLS COUNTED 100
[2020-10-06 14:06] LABS: PLATELET ESTIMATE INCREASED
[2020-10-06 14:07] LABS: ANISOCYTOSIS 2+; HYPOCHROMASIA 1+; LARGE PLATELETS MODERATE
[2020-10-06 14:08] LABS: TOXIC GRANULATION 2+
[2020-10-06 14:09] LABS: POLYCHROMASIA FEW
--- NOTE | 2020-10-06 14:32 | NUR ---
Patient down to OR. Called and gave report to SERGIO Akers in recovery. Last bag of K replacement hung, IV fluids and CaDD dilaudid also went down with patient.
[2020-10-06] MEDS ORDERED: sevoflurane 250ml liquid IH ONE (15:14)
[2020-10-06] MEDS ORDERED: fentaNYL/PF 50MCG/1 ML 2ML syringe ONE (15:35)
[2020-10-06] MEDS ORDERED: propofol inj 20 ML IV ONE (15:36)
[2020-10-06] MEDS ORDERED: ePHEDrine 50MG/ML INJ. ONE (15:36)
[2020-10-06] MEDS ORDERED: LIDOcaine 2% (20mg/ml) 5ml vial ONE (15:36)
[2020-10-06] MEDS ORDERED: ondansetron/PF 4mg/2ml inj ONE (16:10)
[2020-10-06] MEDS ORDERED: dexamethasone sod phosphate 4mg/ml inj. ONE (16:10)
[2020-10-06] MEDS ORDERED: phenylephrine 10mg/ml inj. ONE (16:11)
--- NOTE | 2020-10-06 16:44 | NUR ---
Received from OR via SURGICAL BED , accompanied by Anesthesiologist JAIDEN and report given by Anesthesiolgist. PATIENT WITH LEFT CHEST WALL AJ CATHETER-LR RUNNING AT 100 AND CONNECTED TO A CADD PUMP. VSS AT THIS TIME. SUPRIPUBIC CATHETER WITH URINE PRESENT. COLOSTOMY BAG TO LEFT ABDOMEN DRAINING APPROPRIATELY. PENIS AND PERINEUM DRESSED WITH 4X4S AND ABD DRESSINGS. 10L MASK ON WITH 100% SATURATIONS. Addendum: 10/06/20 at 1705 by Oswald Harris RN, RN Amended: Links added.
--- NOTE | 2020-10-06 17:21 | NUR ---
received report from SERGIO Akers.
--- NOTE | 2020-10-06 17:34 | NUR ---
ALL CRITERIA FOR TRANSFER TO THE FLOOR HAS BEEN ACHIEVED. REPORT GIVEN AND ALL QUESTIONS ANSWERED, VSS. BED LOW 2 RAILS UP, CALL LIGHT PRESENT AND PATIENT HOOKED UP TO ALL LINES AND VSS. PATIENTS RN PRESENT TO ACCEPT CARE. RYANN PRESENT TO ACCEPT CARE. DRESSINGS TO SUPRAPUBIC AND PENILE AREA BLOODIED. CONTAINED AT THIS TIME, RN TO REINFORCE/ CHANGE PRN. VSS. Addendum: 10/06/20 at 1749 by Oswald Laura - SERGIO RN Amended: Links added.
--- NOTE | 2020-10-06 18:04 | NUR ---
Received patient back to room 3025a accompanied by SERGIO Akers. Patient dressing to suprapubic catheter and periniuem area saturated with blood. Reinforced with ABD dressing and foam tape. Bloody drainage in suprapubic catheter drainage bag. Colostomy bag CDI, aguirre catheter to penis still in place with cap on no drainage bag. Patient post op vitals initiated.
--- NOTE | 2020-10-06 18:25 | NUR ---
Problems reprioritized. Patient report given, questions answered & plan of care reviewed with Maggy RN.
--- NOTE | 2020-10-06 18:30 | NUR ---
shift change report received from SERGIO Ochoa
--- NOTE | 2020-10-06 18:44 | NUR ---
Problems reprioritized. Patient report given, questions answered & plan of care reviewed with Maggy RN.
--- NOTE | 2020-10-06 18:51 | NUR ---
Called to Dr. Dietz office answering service. Attempting to notify Dr. Dietz that patient has already had reinforcement of dressings since returning from OR and needing to be reinforced again. Also wanting to clarify diet order. SERGIO Winter aware.
--- NOTE | 2020-10-06 19:10 | NUR ---
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
--- NOTE | 2020-10-06 19:55 | NUR ---
Dr Dietz here at bedside; rapid response team present
[2020-10-06] MEDS ORDERED: LIDOcaine 1% (10mg/ml) 2ml vial SQ STA (20:19)
[2020-10-06 20:31] LABS: ALBUMIN 1.1 G/DL (3.4-5.0); ANION GAP 16 (8-16); BLOOD UREA NITROGEN 83 MG/DL (7-18); BUN/CREATININE RATIO 30.9 (5.4-32.0); CALCIUM 7.7 MG/DL (8.5-10.1); CHLORIDE 115 MMOL/L (99-107); CREATININE 2.69 MG/DL (0.60-1.10); EOSINOPHILS % (AUTO) 0.2 % (0-6); GLUCOSE 158 MG/DL (70-104); POTASSIUM 4.8 MMOL/L (3.5-5.1); SODIUM 151 MMOL/L (135-145); TOTAL CARBON DIOXIDE 19.8 MMOL/L (24-32); eGFR 23 ML/MIN
[2020-10-06 20:32] LABS: BASOPHILS % (AUTO) 0.1 % (0-1); LYMPHOCYTES # (AUTO) 1.2 X10'3 (1.1-4.8); LYMPHOCYTES % (AUTO) 4.2 % (21-51); MEAN CORPUSCULAR HEMOGLOBIN 27.7 PG (27.0-31.0); MEAN CORPUSCULAR HGB CONC 30.6 g/dL (33.0-36.5); MEAN CORPUSCULAR VOLUME 90.5 FL (78-98); MEAN PLATELET VOLUME 8.7 FL (7.4-10.4); MONOCYTES # (AUTO) 0.3 X10'3 (0-0.9); MONOCYTES % (AUTO) 1.1 % (2-12); NEUTROPHILS # (AUTO) 27.6 X10'3 (1.8-7.7); NEUTROPHILS % (AUTO) 94.4 % (42-75); RED BLOOD COUNT 2.26 X10'6 (4.70-6.10)
[2020-10-06] MEDS ORDERED: LIDOcaine 1% 30ml preserv. free vial SQ STA (20:32)
[2020-10-06] MEDS ORDERED: LIDOcaine 1% 30ml preserv. free vial ONE (20:34)
[2020-10-06 20:51] LABS: ANISOCYTOSIS 2+; HYPOCHROMASIA 1+; PLATELET ESTIMATE INCREASED; POLYCHROMASIA FEW; TOTAL CELLS COUNTED 100
[2020-10-06 20:53] LABS: HEMOGLOBIN 6.3 g/dl (14.0-17.9); WHITE BLOOD COUNT 29.2 X10'3 (4.5-11.0)
[2020-10-06 20:54] LABS: HEMATOCRIT 20.4 % (42.0-52.0)
[2020-10-06 20:55] LABS: PLATELET COUNT 1039 X10'3 (140-440)
[2020-10-06] MEDS: insulin glargine (Lantus) pen - multi-dose SQ SCH (21:00)
--- NOTE | 2020-10-06 21:30 | NUR ---
Dr Dietz placed new aguirre, 20 Fr; & irrigated it; pt reports he feels less pressure; urine amount greater from aguirre bag; minimal amt draining from s/p cath (sutures intact); no blood clots noted; urine color remains sanguineous Addendum: 10/07/20 at 0812 by Stephanie Hodgson RN Amended: Links added.
--- NOTE | 2020-10-06 21:30 | NUR ---
sutures placed by Dr Dietz to bleeder; one gauze roll with x3 ABD drsg's placed
[2020-10-06] MEDS: traZODone 50mg tablet PO SCH (23:33)
[2020-10-06] MEDS: enoxaparin 30mg/0.3ml syringe SUBCUT SCH (23:34)
[2020-10-06] MEDS: normal saline 1000ml 1,000 ML IV SCH (23:43)
[2020-10-07] VITALS (8 sets, daily range): BP systolic 87–111; BP diastolic 51–58
[2020-10-07] MEDS: HYDROmorphone/NS 1 mg/ml CADD 50 ML IV SCH ×12 (01:00→23:00)
[2020-10-07] MEDS: ipratropium/albuterol 3ml nebule NEB SCH ×4 (02:49→21:02)
[2020-10-07 03:47] LABS: HEMATOCRIT 24.4 % (42.0-52.0); HEMOGLOBIN 7.9 g/dl (14.0-17.9); MEAN CORPUSCULAR HGB CONC 32.2 g/dL (33.0-36.5); MEAN CORPUSCULAR VOLUME 87.2 FL (78-98); MEAN PLATELET VOLUME 8.8 FL (7.4-10.4); PLATELET COUNT 698 X10'3 (140-440); RED CELL DISTRIBUTION WIDTH 16.2 % (11.5-14.5)
[2020-10-07 04:00] LABS: ALANINE AMINOTRANSFERASE 46 U/L (12-78); ALBUMIN 1.1 G/DL (3.4-5.0); ALBUMIN/GLOBULIN RATIO 0.3 (1.1-1.5); ALKALINE PHOSPHATASE 213 IU/L (46-116); ANION GAP 16 (8-16); ASPARTATE AMINO TRANSFERASE 27 U/L (10-37); BILIRUBIN,TOTAL 0.7 MG/DL (0.1-1.0); BLOOD UREA NITROGEN 86 MG/DL (7-18); BUN/CREATININE RATIO 30.4 (5.4-32.0); CALCIUM 7.1 MG/DL (8.5-10.1); CHLORIDE 113 MMOL/L (99-107); CREATININE 2.83 MG/DL (0.60-1.10); GLUCOSE 249 MG/DL (70-104); MAGNESIUM 1.5 MG/DL (1.5-2.4); POTASSIUM 4.9 MMOL/L (3.5-5.1); SODIUM 147 MMOL/L (135-145); TOTAL CARBON DIOXIDE 18.2 MMOL/L (24-32); TOTAL PROTEIN 4.4 G/DL (6.4-8.2); eGFR 22 ML/MIN
--- NOTE | 2020-10-07 04:30 | NUR ---
October, PA notified of elevated WBC, H&H; informed blood surgars pt has had since yesterday & receiving order to give Lantus & Humulin (remaining on level 3, where pt left off from the last dose); confirmed need to place PIV line & to heparin lock TDC when placed
[2020-10-07] MEDS: insulin glargine (Lantus) pen - multi-dose SQ SCH ×2 (04:58→21:00)
[2020-10-07] MEDS: insulin regular, human U-100 3ml vial - multi-dose SQ SCH ×2 (05:02→09:38)
--- NOTE | 2020-10-07 06:30 | NUR ---
at bedside most of night monitoring for any further bleed; assisted with position of comfort & reminded to use cadd pump when in pain; encouraged deep breathing exercises; has moist, non productive cough; VS's monitored q15min with sbp improving to 80's & 90's; urine color remains bloody, no blood clots noted; pt did receive x2 units of blood (as per Dr Dietz order when at bedside & had reviewed labs draw during the rapid response; pt's color greatly improved; pt more alert & has better pain control, however needs to be reminded to use cadd pump; pt able to sleep short intervals with resp even and unlabored; 50 percent of one ABD drsg saturated with bloody drainage; kerlix gauze adhering to penis; approx 25 percent soiled in scotal area when last checked at 0610; shift change report given to Latia Mccoy RN
--- NOTE | 2020-10-07 06:49 | NUR ---
Patient in room PCU 3025. I have received report from Maggy RN and had the opportunity to ask questions and assume patient care. Patient appears unstable with lots of patient care and medical attention needed.
[2020-10-07] MEDS: aspirin 81mg tablet.DR PO SCH (08:13)
[2020-10-07] MEDS: lactobacillus rhamnosus 10,000 MMU CELLS/CAPSULE PO SCH ×2 (08:13→19:42)
[2020-10-07] MEDS: nystatin 15 GM powder TP SCH ×2 (08:13→20:54)
[2020-10-07] MEDS: piperacillin/tazo 3.375gm/50ml 50 ML IV SCH ×3 (08:14→18:13)
[2020-10-07] MEDS: fluconazole-Diflucan 200mg/NS 100 ML IV SCH (08:17)
[2020-10-07] MEDS: ARGININE/GLUTAMINE/CALCIUM BMB (JUVEN 19.3GM PKT) 1 EACH POWD.PACK PO SCH ×2 (08:17→20:54)
[2020-10-07] MEDS: normal saline 1000ml 1,000 ML IV SCH ×2 (08:18→19:30)
[2020-10-07 10:21] LABS: HEMOGLOBIN 7.8 g/dl (14.0-17.9); MEAN PLATELET VOLUME 8.5 FL (7.4-10.4)
[2020-10-07 10:22] LABS: HEMATOCRIT 24.8 % (42.0-52.0); MEAN CORPUSCULAR HEMOGLOBIN 27.8 PG (27.0-31.0); MEAN CORPUSCULAR HGB CONC 31.6 g/dL (33.0-36.5); MEAN CORPUSCULAR VOLUME 87.9 FL (78-98); PLATELET COUNT 680 X10'3 (140-440); RED BLOOD COUNT 2.82 X10'6 (4.70-6.10); RED CELL DISTRIBUTION WIDTH 16.6 % (11.5-14.5)
[2020-10-07 10:30] LABS: WHITE BLOOD COUNT 32.5 X10'3 (4.5-11.0)
--- NOTE | 2020-10-07 11:10 | NUR ---
Lab called regarding Critical value of WBC 32.5. Dr. Ford was notified and is aware.
--- NOTE | 2020-10-07 12:36 | NUR ---
Patient pulled out feeding tube. Will continue to monitor.
[2020-10-07] MEDS ORDERED: heparin sodium, porcine/PF 100unit/ml 5ML syringe IV ONE (13:20)
--- NOTE | 2020-10-07 13:35 | NUR ---
Called Dr. Angel to notify that patient pulled out corepak and that I will replace that. Also notified that lab is unable to obtain any blood due to artificial veins. is OK to place a PICC line. Will continue to monitor, forms will be signed.
--- NOTE | 2020-10-07 13:45 | NUR ---
Paged PICC Re: Anish Zacarais [id number]. Need a PICC ARIADNA. Please call Thank you Latia HILL [phone]
--- NOTE | 2020-10-07 14:00 | NUR ---
Attempted to put corepak into patients right nares and was unsuccessful. Patient refused to corporate and no corepak was able to be placed, MD knows and still wants.
[2020-10-07] MEDS ORDERED: heparin 1,000 units/ml 10ml inj HE ONE (14:05)
--- NOTE | 2020-10-07 15:22 | NUR ---
[facility] LINE INFORMATION: REF: [id number] LOT: [id number] EXP: 06/21/2021 AWAITING CHEST X-RAY CONFIRMATION
--- NOTE | 2020-10-07 18:10 | NUR ---
Problems reprioritized. Patient report given, questions answered & plan of care reviewed with Gustavo HILL.
--- NOTE | 2020-10-07 18:32 | NUR ---
Patient in room PCU 3025. I have received report from Latia Mccoy and had the opportunity to ask questions and assume patient care.
[2020-10-07] MEDS: enoxaparin 30mg/0.3ml syringe SUBCUT SCH (19:42)
--- NOTE | 2020-10-07 20:35 | NUR ---
corpak was pulled out, no gluco checks done since AM. cannot cover insulin for corpak. will cover sugars with lantus for the evening. MD aware. new order of restraints as well d/t pulling lines. will continue to monitor.
[2020-10-07] MEDS: traZODone 50mg tablet PO SCH (20:58)
--- NOTE | 2020-10-07 22:58 | NUR ---
pt is eating some of his food. does have diet of puree thin liquids. pt had almost 50% of their food. pt is a feeder. spoke to MD in regards of placing new corpak. no new order for replacing the corpak, will be held till the AM for further instructions of renewal. will continue to monitor patient.
[2020-10-08] VITALS (11 sets, daily range): BP systolic 101–124; BP diastolic 60–69
[2020-10-08] MEDS: HYDROmorphone/NS 1 mg/ml CADD 50 ML IV SCH ×12 (01:00→23:00)
[2020-10-08] MEDS: piperacillin/tazo 3.375gm/50ml 50 ML IV SCH ×4 (01:40→23:30)
[2020-10-08] MEDS: ipratropium/albuterol 3ml nebule NEB SCH ×4 (02:51→20:45)
[2020-10-08] MEDS: normal saline 1000ml 1,000 ML IV SCH ×2 (05:41→16:42)
--- NOTE | 2020-10-08 06:26 | NUR ---
Problems reprioritized. Patient report given, questions answered & plan of care reviewed with Lizzy HILL.
[2020-10-08 06:57] LABS: ALANINE AMINOTRANSFERASE 49 U/L (12-78); ALBUMIN 1.1 G/DL (3.4-5.0); ALBUMIN/GLOBULIN RATIO 0.3 (1.1-1.5); ALKALINE PHOSPHATASE 225 IU/L (46-116); ANION GAP 16 (8-16); ASPARTATE AMINO TRANSFERASE 20 U/L (10-37); BILIRUBIN,TOTAL 0.5 MG/DL (0.1-1.0); BLOOD UREA NITROGEN 104 MG/DL (7-18); CALCIUM 7.3 MG/DL (8.5-10.1); CHLORIDE 114 MMOL/L (99-107); CREATININE 2.81 MG/DL (0.60-1.10); GLUCOSE 126 MG/DL (70-104); MAGNESIUM 1.5 MG/DL (1.5-2.4); POTASSIUM 4.4 MMOL/L (3.5-5.1); SODIUM 149 MMOL/L (135-145); TOTAL CARBON DIOXIDE 19.2 MMOL/L (24-32); TOTAL PROTEIN 4.4 G/DL (6.4-8.2); eGFR 22 ML/MIN
[2020-10-08] MEDS ORDERED: LORazepam 2 mg/ml vial IM ONE (07:50)
[2020-10-08] MEDS: ARGININE/GLUTAMINE/CALCIUM BMB (JUVEN 19.3GM PKT) 1 EACH POWD.PACK PO SCH ×2 (08:00→20:00)
[2020-10-08] MEDS: lactobacillus rhamnosus 10,000 MMU CELLS/CAPSULE PO SCH ×2 (08:00→21:00)
[2020-10-08] MEDS: aspirin 81mg tablet.DR PO SCH (08:00)
[2020-10-08] MEDS: nystatin 15 GM powder TP SCH ×2 (08:00→21:02)
[2020-10-08] MEDS ORDERED: LORazepam 2 mg/ml vial IV ONE (08:00)
[2020-10-08] MEDS: fluconazole-Diflucan 200mg/NS 100 ML IV SCH (10:22)
--- NOTE | 2020-10-08 12:32 | NUR ---
Reassessment: Pt continues tolerating TF at goal rate with GRV WNL. Pureed food with thin liquids d/t difficulty chewing regular solids per PRESS CATCHER. Not eating, documented as confused, agitated, resistant to care and screaming; he a total assit with eating, in restraints. Recommend to keep TF to meet nutrition needs. Last BM 10/06 documented with 1000 mL stool output per I&O. Will continue to follow closely and monitor need for further nutrition intervention pending trends in PO intake. Rec: 1. NGTF via corpak using Vital High Protein at 80ml/hr goal; to provide 1920ml volume, 1920kcals, 1613ml free water, and 168g protein. 2. additional water flush 200ml q 4 hours 3. continue pureed/thin diet per PRESS CATCHER recs; encourage PO w/ assistance given ALOC as able 4. PALB q /; daily wts 5. Yao packet BID w/ EN for wound healing. Mix 1 packet yao w/ 120ml free water and flush tube w/ 40ml free water before and after administration. 5. Only wean EN IF consistent PO 65% avg meals given wound healing needs and ALOC 6. bowel care per rx Addendum: 10/08/20 at [address] Amended: Links added.
--- NOTE | 2020-10-08 18:25 | NUR ---
Patient in room PCU 3025. I have received report from Lizzy HILL and had the opportunity to ask questions and assume patient care.
--- NOTE | 2020-10-08 18:43 | NUR ---
Problems reprioritized. Patient report given, questions answered & plan of care reviewed with Gustavo HILL.
[2020-10-08 19:11] LABS: BASOPHILS % (AUTO) 0.1 % (0-1); EOSINOPHILS # (AUTO) 0.1 X10'3 (0-0.9); EOSINOPHILS % (AUTO) 0.4 % (0-6); MONOCYTES # (AUTO) 1.1 X10'3 (0-0.9); NEUTROPHILS # (AUTO) 21.9 X10'3 (1.8-7.7); RED BLOOD COUNT 2.23 X10'6 (4.70-6.10)
[2020-10-08 19:13] LABS: LYMPHOCYTES % (AUTO) 4.1 % (21-51); MEAN CORPUSCULAR HEMOGLOBIN 28.6 PG (27.0-31.0); MEAN CORPUSCULAR HGB CONC 32.9 g/dL (33.0-36.5); MEAN CORPUSCULAR VOLUME 86.9 FL (78-98); MEAN PLATELET VOLUME 8.2 FL (7.4-10.4); MONOCYTES % (AUTO) 4.4 % (2-12); PLATELET COUNT 669 X10'3 (140-440); RED CELL DISTRIBUTION WIDTH 16.1 % (11.5-14.5); WHITE BLOOD COUNT 24.1 X10'3 (4.5-11.0)
[2020-10-08 19:17] LABS: HEMATOCRIT 19.4 % (42.0-52.0); HEMOGLOBIN 6.4 g/dl (14.0-17.9)
[2020-10-08] MEDS: enoxaparin 30mg/0.3ml syringe SUBCUT SCH ×2 (20:00→21:01)
--- NOTE | 2020-10-08 20:45 | NUR ---
LAB CRIT REPORTED TO LEO. NEW ORDER OF 1 UNIT PRBC TO BE INFUSED. WILL CONTINUE TO MONITOR.
[2020-10-08] MEDS: traZODone 50mg tablet PO SCH (21:00)
[2020-10-08] MEDS: insulin glargine (Lantus) pen - multi-dose SQ SCH (21:00)
[2020-10-08 21:21] LABS: ANISOCYTOSIS 1+; HYPOCHROMASIA 1+; PLATELET ESTIMATE INCREASED; POLYCHROMASIA FEW; TOTAL CELLS COUNTED 100
--- NOTE | 2020-10-08 22:34 | NUR ---
blood infusion completed w/o complication. pt tolerated well. will continue to monitor.
[2020-10-09] VITALS (10 sets, daily range): BP systolic 92–129; BP diastolic 54–78
[2020-10-09] MEDS: HYDROmorphone/NS 1 mg/ml CADD 50 ML IV SCH ×12 (01:00→23:00)
[2020-10-09] MEDS: normal saline 1000ml 1,000 ML IV SCH (03:15)
[2020-10-09] MEDS: ipratropium/albuterol 3ml nebule NEB SCH ×4 (05:02→20:01)
[2020-10-09 05:59] LABS: BASOPHILS % (AUTO) 0.2 % (0-1); EOSINOPHILS % (AUTO) 0.2 % (0-6); LYMPHOCYTES # (AUTO) 0.7 X10'3 (1.1-4.8); LYMPHOCYTES % (AUTO) 3.1 % (21-51); MEAN CORPUSCULAR HGB CONC 32.5 g/dL (33.0-36.5); MEAN PLATELET VOLUME 8.2 FL (7.4-10.4); MONOCYTES # (AUTO) 0.9 X10'3 (0-0.9); MONOCYTES % (AUTO) 4.1 % (2-12); NEUTROPHILS # (AUTO) 19.6 X10'3 (1.8-7.7); NEUTROPHILS % (AUTO) 92.4 % (42-75); PLATELET COUNT 545 X10'3 (140-440); RED BLOOD COUNT 2.31 X10'6 (4.70-6.10); RED CELL DISTRIBUTION WIDTH 16.3 % (11.5-14.5); WHITE BLOOD COUNT 21.2 X10'3 (4.5-11.0)
[2020-10-09 06:04] LABS: HEMATOCRIT 20.6 % (42.0-52.0); HEMOGLOBIN 6.7 g/dl (14.0-17.9)
[2020-10-09 06:12] LABS: ALANINE AMINOTRANSFERASE 53 U/L (12-78); ALBUMIN/GLOBULIN RATIO 0.3 (1.1-1.5); ALKALINE PHOSPHATASE 305 IU/L (46-116); ANION GAP 17 (8-16); ASPARTATE AMINO TRANSFERASE 37 U/L (10-37); BILIRUBIN,TOTAL 0.5 MG/DL (0.1-1.0); BLOOD UREA NITROGEN 82 MG/DL (7-18); BUN/CREATININE RATIO 35.5 (5.4-32.0); CALCIUM 6.6 MG/DL (8.5-10.1); CHLORIDE 119 MMOL/L (99-107); CREATININE 2.31 MG/DL (0.60-1.10); GLUCOSE 78 MG/DL (70-104); MAGNESIUM 1.3 MG/DL (1.5-2.4); PHOSPHORUS 4.2 MG/DL (2.3-4.5); POTASSIUM 3.5 MMOL/L (3.5-5.1); SODIUM 153 MMOL/L (135-145); TOTAL CARBON DIOXIDE 17.1 MMOL/L (24-32); eGFR 28 ML/MIN
--- NOTE | 2020-10-09 06:36 | NUR ---
Problems reprioritized. Patient report given, questions answered & plan of care reviewed with antonio jennings.
[2020-10-09] MEDS: lactobacillus rhamnosus 10,000 MMU CELLS/CAPSULE PO SCH ×3 (07:41→20:24)
[2020-10-09] MEDS: piperacillin/tazo 3.375gm/50ml 50 ML IV SCH ×2 (07:42→15:33)
[2020-10-09] MEDS: fluconazole-Diflucan 200mg/NS 100 ML IV SCH (07:42)
[2020-10-09] MEDS: nystatin 15 GM powder TP SCH ×2 (07:42→20:25)
[2020-10-09] MEDS: aspirin 81mg tablet.DR PO SCH (07:55)
[2020-10-09] MEDS: ARGININE/GLUTAMINE/CALCIUM BMB (JUVEN 19.3GM PKT) 1 EACH POWD.PACK PO SCH ×2 (08:00→20:00)
[2020-10-09] MEDS ORDERED: heparin 1,000 units/ml 10ml inj HE ONE (10:35)
[2020-10-09] MEDS ORDERED: dextrose 5%-water 1,000 ML IV SCH (11:55)
--- NOTE | 2020-10-09 12:00 | NUR ---
PA NOTIFIED OF INCREASING TEMPERATURE THROUGHOUT BLOOD TRANSFUSION. NO NEW ORDERS.
--- NOTE | 2020-10-09 13:00 | NUR ---
RAJESH IS AWARE OF THE LEAKING SUPRAPUBIC CATHETER. SHE CALLED DR PRABHAKAR WHO SAID HE WILL BE COMING TO ASSESS THE SITUATION.
[2020-10-09 15:21] LABS: HEMATOCRIT 25.6 % (42.0-52.0); HEMOGLOBIN 8.6 g/dl (14.0-17.9); MEAN CORPUSCULAR HEMOGLOBIN 30.3 PG (27.0-31.0); MEAN CORPUSCULAR HGB CONC 33.6 g/dL (33.0-36.5); MEAN PLATELET VOLUME 7.9 FL (7.4-10.4); PLATELET COUNT 545 X10'3 (140-440); RED BLOOD COUNT 2.84 X10'6 (4.70-6.10); RED CELL DISTRIBUTION WIDTH 16.4 % (11.5-14.5); WHITE BLOOD COUNT 22.6 X10'3 (4.5-11.0)
[2020-10-09] MEDS: sodium bicarbonate (8.4%) inj. 150 MEQ in dextrose 5%-water 1,000 ML IV SCH (15:33)
--- NOTE | 2020-10-09 17:21 | NUR ---
LINKED MED NOTE: HEPARIN 1,000UNITS/ML WAS PLACED INTO PATIENTS LEFT UPPER CHEST TDC BY IRASEMA CHUN RN.
--- NOTE | 2020-10-09 18:20 | NUR ---
Problems reprioritized. Patient report given, questions answered & plan of care reviewed with SERGIO CASAS.
[2020-10-09] MEDS: traZODone 50mg tablet PO SCH (20:24)
[2020-10-09] MEDS: enoxaparin 30mg/0.3ml syringe SUBCUT SCH (20:26)
[2020-10-09] MEDS: insulin glargine (Lantus) pen - multi-dose SQ SCH (21:00)
[2020-10-10] MEDS: sodium bicarbonate (8.4%) inj. 150 MEQ in dextrose 5%-water 1,000 ML IV SCH ×3 (00:50→23:50)
[2020-10-10] MEDS: piperacillin/tazo 3.375gm/50ml 50 ML IV SCH ×3 (00:57→16:52)
[2020-10-10] MEDS: HYDROmorphone/NS 1 mg/ml CADD 50 ML IV SCH ×2 (01:00→03:00)
[2020-10-10] MEDS: ipratropium/albuterol 3ml nebule NEB SCH ×3 (02:33→20:16)
[2020-10-10 03:00] VITALS: BP 118/78
[2020-10-10] MEDS ORDERED: LORazepam 2 mg/ml vial IV ONE ×2 (04:05→21:05)
[2020-10-10 06:00] VITALS: BP 117/73
[2020-10-10 10:00] LABS: BASOPHILS # (AUTO) 0.1 X10'3 (0-0.2); BASOPHILS % (AUTO) 0.3 % (0-1); EOSINOPHILS % (AUTO) 0.2 % (0-6); HEMATOCRIT 26.4 % (42.0-52.0); HEMOGLOBIN 8.8 g/dl (14.0-17.9); LYMPHOCYTES # (AUTO) 0.8 X10'3 (1.1-4.8); LYMPHOCYTES % (AUTO) 4.1 % (21-51); MEAN CORPUSCULAR HEMOGLOBIN 29.9 PG (27.0-31.0); MEAN CORPUSCULAR HGB CONC 33.1 g/dL (33.0-36.5); MEAN CORPUSCULAR VOLUME 90.3 FL (78-98); MEAN PLATELET VOLUME 8.3 FL (7.4-10.4); MONOCYTES # (AUTO) 0.9 X10'3 (0-0.9); MONOCYTES % (AUTO) 4.7 % (2-12); NEUTROPHILS # (AUTO) 17.2 X10'3 (1.8-7.7); NEUTROPHILS % (AUTO) 90.7 % (42-75); PLATELET COUNT 500 X10'3 (140-440); RED BLOOD COUNT 2.93 X10'6 (4.70-6.10); RED CELL DISTRIBUTION WIDTH 16.4 % (11.5-14.5)
[2020-10-10 10:36] LABS: ALANINE AMINOTRANSFERASE 74 U/L (12-78); ALBUMIN 1.2 G/DL (3.4-5.0); ALBUMIN/GLOBULIN RATIO 0.4 (1.1-1.5); ALKALINE PHOSPHATASE 273 IU/L (46-116); ANION GAP 12 (8-16); ASPARTATE AMINO TRANSFERASE 48 U/L (10-37); BILIRUBIN,TOTAL 0.6 MG/DL (0.1-1.0); BLOOD UREA NITROGEN 70 MG/DL (7-18); BUN/CREATININE RATIO 28.2 (5.4-32.0); CHLORIDE 117 MMOL/L (99-107); CREATININE 2.48 MG/DL (0.60-1.10); GLUCOSE 131 MG/DL (70-104); MAGNESIUM 1.4 MG/DL (1.5-2.4); PHOSPHORUS 3.9 MG/DL (2.3-4.5); POTASSIUM 3.3 MMOL/L (3.5-5.1); SODIUM 151 MMOL/L (135-145); TOTAL CARBON DIOXIDE 22.5 MMOL/L (24-32); TOTAL PROTEIN 4.5 G/DL (6.4-8.2); eGFR 25 ML/MIN
[2020-10-10 10:48] LABS: ANISOCYTOSIS 1+; PLATELET ESTIMATE INCREASED; TOTAL CELLS COUNTED 100
[2020-10-10 10:49] LABS: HYPOCHROMASIA 1+; POLYCHROMASIA 1+
[2020-10-10] MEDS: aspirin 81mg tablet.DR PO SCH (10:53)
[2020-10-10] MEDS: lactobacillus rhamnosus 10,000 MMU CELLS/CAPSULE PO SCH ×2 (10:53→20:24)
[2020-10-10] MEDS: ARGININE/GLUTAMINE/CALCIUM BMB (JUVEN 19.3GM PKT) 1 EACH POWD.PACK PO SCH ×2 (10:53→20:00)
[2020-10-10] MEDS: nystatin 15 GM powder TP SCH ×2 (10:54→20:00)
[2020-10-10] MEDS: fluconazole-Diflucan 200mg/NS 100 ML IV SCH (10:54)
[2020-10-10 11:00] VITALS: BP 115/70
[2020-10-10] MEDS ORDERED: HYDROmorphone 1 mg/ml syringe IV ONE (11:15)
[2020-10-10] MEDS: CADD PCA waste documentation MC PRN ×2 (12:34→12:38)
--- NOTE | 2020-10-10 12:38 | NUR ---
CADD waste of 35ml with Leanne HILL.
--- NOTE | 2020-10-10 12:45 | NUR ---
Verified CADD waste of 35 ML with Diya HILL.
--- NOTE | 2020-10-10 14:02 | NUR ---
RT AT PATIENTS BEDSIDE FOR Q6 SVN TX. PATIENT CURRENTLY GETTING FED FOR LUNCH. RT WILL RETURN AT A LATER TIME. NO SOB OR DISTRESS NOTED. Addendum: 10/10/20 at 1403 by Delores Kumari RT Amended: Links added.
[2020-10-10 15:00] VITALS: BP 130/76
[2020-10-10 18:00] VITALS: BP 127/78
--- NOTE | 2020-10-10 18:06 | NUR ---
Problems reprioritized. Patient report given, questions answered & plan of care reviewed with Gustavo HILL.
--- NOTE | 2020-10-10 18:29 | NUR ---
Patient in room PCU 3025. I have received report from radha jennings and had the opportunity to ask questions and assume patient care.
[2020-10-10] MEDS: traZODone 50mg tablet PO SCH (20:24)
[2020-10-10] MEDS: enoxaparin 30mg/0.3ml syringe SUBCUT SCH (20:25)
[2020-10-10] MEDS: insulin glargine (Lantus) pen - multi-dose SQ SCH (21:00)
[2020-10-10 22:00] VITALS: BP 122/73
[2020-10-11] MEDS: LORazepam 2 mg/ml vial IV PRN ×2 (00:28→16:52)
[2020-10-11] MEDS: piperacillin/tazo 3.375gm/50ml 50 ML IV SCH ×2 (00:28→09:09)
[2020-10-11 02:00] VITALS: BP 122/74
[2020-10-11] MEDS: ipratropium/albuterol 3ml nebule NEB SCH ×4 (02:38→21:25)
[2020-10-11 06:00] VITALS: BP 121/72
[2020-10-11 06:10] LABS: BASOPHILS # (AUTO) 0.1 X10'3 (0-0.2); BASOPHILS % (AUTO) 0.4 % (0-1); EOSINOPHILS # (AUTO) 0.1 X10'3 (0-0.9); EOSINOPHILS % (AUTO) 0.7 % (0-6); HEMATOCRIT 25.1 % (42.0-52.0); HEMOGLOBIN 8.3 g/dl (14.0-17.9); LYMPHOCYTES # (AUTO) 0.8 X10'3 (1.1-4.8); LYMPHOCYTES % (AUTO) 5.1 % (21-51); MEAN CORPUSCULAR HEMOGLOBIN 29.4 PG (27.0-31.0); MEAN CORPUSCULAR HGB CONC 33.2 g/dL (33.0-36.5); MEAN CORPUSCULAR VOLUME 88.6 FL (78-98); MEAN PLATELET VOLUME 8.2 FL (7.4-10.4); MONOCYTES # (AUTO) 0.7 X10'3 (0-0.9); MONOCYTES % (AUTO) 4.4 % (2-12); NEUTROPHILS # (AUTO) 14.2 X10'3 (1.8-7.7); NEUTROPHILS % (AUTO) 89.4 % (42-75); PLATELET COUNT 497 X10'3 (140-440); RED BLOOD COUNT 2.83 X10'6 (4.70-6.10); RED CELL DISTRIBUTION WIDTH 16.3 % (11.5-14.5); WHITE BLOOD COUNT 15.9 X10'3 (4.5-11.0)
[2020-10-11 06:21] LABS: ALANINE AMINOTRANSFERASE 61 U/L (12-78); ALBUMIN 1.1 G/DL (3.4-5.0); ALBUMIN/GLOBULIN RATIO 0.3 (1.1-1.5); ALKALINE PHOSPHATASE 228 IU/L (46-116); ANION GAP 8 (8-16); ASPARTATE AMINO TRANSFERASE 29 U/L (10-37); BILIRUBIN,TOTAL 0.4 MG/DL (0.1-1.0); BLOOD UREA NITROGEN 64 MG/DL (7-18); BUN/CREATININE RATIO 28.8 (5.4-32.0); CALCIUM 7.4 MG/DL (8.5-10.1); CHLORIDE 117 MMOL/L (99-107); CREATININE 2.22 MG/DL (0.60-1.10); GLUCOSE 128 MG/DL (70-104); MAGNESIUM 1.4 MG/DL (1.5-2.4); PHOSPHORUS 3.4 MG/DL (2.3-4.5); SODIUM 152 MMOL/L (135-145); TOTAL CARBON DIOXIDE 26.8 MMOL/L (24-32); TOTAL PROTEIN 4.4 G/DL (6.4-8.2); eGFR 29 ML/MIN
--- NOTE | 2020-10-11 06:30 | NUR ---
PARTICLEBOARD FACTORY WORKER aware of Lab crit K+. replacement will begin.
[2020-10-11] MEDS: sodium bicarbonate (8.4%) inj. 150 MEQ in dextrose 5%-water 1,000 ML IV SCH ×2 (06:48→19:23)
--- NOTE | 2020-10-11 06:51 | NUR ---
Problems reprioritized. Patient report given, questions answered & plan of care reviewed with Donald RN.
[2020-10-11] MEDS: fluconazole-Diflucan 200mg/NS 100 ML IV SCH (08:14)
[2020-10-11] MEDS: nystatin 15 GM powder TP SCH ×2 (08:14→20:00)
[2020-10-11] MEDS: aspirin 81mg tablet.DR PO SCH (08:21)
[2020-10-11] MEDS: lactobacillus rhamnosus 10,000 MMU CELLS/CAPSULE PO SCH ×2 (08:21→20:34)
[2020-10-11] MEDS: ARGININE/GLUTAMINE/CALCIUM BMB (JUVEN 19.3GM PKT) 1 EACH POWD.PACK PO SCH ×2 (08:22→20:00)
--- NOTE | 2020-10-11 11:00 | NUR ---
Notified wound care that it looked as if intestine was prolapsing out the patients ostomy, wound care notified surgeon, have not received an new orders at this time.
[2020-10-11 12:44] VITALS: BP 118/66
[2020-10-11 15:00] VITALS: BP 106/76
[2020-10-11 18:00] VITALS: BP 128/72
--- NOTE | 2020-10-11 18:00 | NUR ---
Patient in room PCU 3025. I have received report from Donald HILL and had the opportunity to ask questions and assume patient care.
--- NOTE | 2020-10-11 19:02 | NUR ---
Problems reprioritized. Patient report given, questions answered & plan of care reviewed with Mnoae HILL.
[2020-10-11] MEDS: traZODone 50mg tablet PO SCH (20:34)
[2020-10-11] MEDS: enoxaparin 30mg/0.3ml syringe SUBCUT SCH (20:35)
[2020-10-11] MEDS: insulin glargine (Lantus) pen - multi-dose SQ SCH (21:00)
[2020-10-11] MEDS: POTASSIUM BICARB 20meq eff tab 20 MEQ TABLET.EFF CORPAK PRN (21:19)
--- NOTE | 2020-10-11 21:44 | NUR ---
patient had just a few bites of dinner, awhile later I gave him effer-K 40mEq, respiratory came by to give treatment and patient threw up
[2020-10-11 22:00] VITALS: BP 125/75
--- NOTE | 2020-10-12 01:10 | NUR ---
At 2350 patient started to yell let me out of here and tried to grab anything,tried to educate patient on why he couldnt leave and he kept on yelling, he got a hold of the tv and started to shake it. Also educated the patient on Effer-K and asked if patient would take Effer-K for his low potassium and he said no. Gave ativan,seemed to calm him, not yelling as much, will continue to monitor
[2020-10-12 02:00] VITALS: BP 132/78
[2020-10-12] MEDS: ipratropium/albuterol 3ml nebule NEB SCH ×3 (03:00→22:07)
--- NOTE | 2020-10-12 03:20 | NUR ---
Pt drank the Effer-K 40 mEq and shortly after that he threw up.
[2020-10-12] MEDS: POTASSIUM BICARB 20meq eff tab 20 MEQ TABLET.EFF CORPAK PRN (04:47)
[2020-10-12 04:48] LABS: BASOPHILS # (AUTO) 0.1 X10'3 (0-0.2); BASOPHILS % (AUTO) 0.7 % (0-1); EOSINOPHILS # (AUTO) 0.1 X10'3 (0-0.9); EOSINOPHILS % (AUTO) 0.6 % (0-6); HEMATOCRIT 22.5 % (42.0-52.0); HEMOGLOBIN 7.5 g/dl (14.0-17.9); LYMPHOCYTES # (AUTO) 0.9 X10'3 (1.1-4.8); LYMPHOCYTES % (AUTO) 5.8 % (21-51); MEAN CORPUSCULAR HEMOGLOBIN 29.5 PG (27.0-31.0); MEAN CORPUSCULAR HGB CONC 33.6 g/dL (33.0-36.5); MEAN CORPUSCULAR VOLUME 87.8 FL (78-98); MEAN PLATELET VOLUME 7.9 FL (7.4-10.4); MONOCYTES # (AUTO) 0.6 X10'3 (0-0.9); NEUTROPHILS # (AUTO) 13.9 X10'3 (1.8-7.7); NEUTROPHILS % (AUTO) 88.9 % (42-75); PLATELET COUNT 449 X10'3 (140-440); RED BLOOD COUNT 2.56 X10'6 (4.70-6.10); RED CELL DISTRIBUTION WIDTH 16.1 % (11.5-14.5); WHITE BLOOD COUNT 15.6 X10'3 (4.5-11.0)
[2020-10-12 05:11] LABS: ALANINE AMINOTRANSFERASE 52 U/L (12-78); ALBUMIN/GLOBULIN RATIO 0.3 (1.1-1.5); ALKALINE PHOSPHATASE 189 IU/L (46-116); ANION GAP 4 (8-16); ASPARTATE AMINO TRANSFERASE 50 U/L (10-37); BILIRUBIN,TOTAL 0.4 MG/DL (0.1-1.0); BLOOD UREA NITROGEN 58 MG/DL (7-18); CALCIUM 6.2 MG/DL (8.5-10.1); CHLORIDE 110 MMOL/L (99-107); CREATININE 1.87 MG/DL (0.60-1.10); GLUCOSE 382 MG/DL (70-104); MAGNESIUM 1.1 MG/DL (1.5-2.4); PHOSPHORUS 2.2 MG/DL (2.3-4.5); SODIUM 152 MMOL/L (135-145); TOTAL CARBON DIOXIDE 38.2 MMOL/L (24-32); TOTAL PROTEIN 3.9 G/DL (6.4-8.2); eGFR 35 ML/MIN
[2020-10-12 05:13] LABS: POTASSIUM 2.5 MMOL/L (3.5-5.1)
[2020-10-12] MEDS: potassium Cl 20mEq/100mL bag 100 ML IV PRN ×2 (05:30→07:10)
--- NOTE | 2020-10-12 06:30 | NUR ---
Problems reprioritized. Patient report given, questions answered & plan of care reviewed with Stephanie HILL.
--- NOTE | 2020-10-12 06:43 | NUR ---
Notified Dr Gil pt K+ of 2.5 he said replace per protocol
[2020-10-12] MEDS: sodium bicarbonate (8.4%) inj. 150 MEQ in dextrose 5%-water 1,000 ML IV SCH (07:02)
[2020-10-12 07:07] VITALS: BP 121/73
--- NOTE | 2020-10-12 07:19 | NUR ---
Patient in room PCU 3025. I have received report from Monae HILL and had the opportunity to ask questions and assume patient care.
[2020-10-12] MEDS: ARGININE/GLUTAMINE/CALCIUM BMB (JUVEN 19.3GM PKT) 1 EACH POWD.PACK PO SCH ×2 (08:00→21:19)
[2020-10-12] MEDS: nystatin 15 GM powder TP SCH ×2 (08:00→20:51)
[2020-10-12] MEDS: aspirin 81mg tablet.DR PO SCH (09:56)
[2020-10-12] MEDS: lactobacillus rhamnosus 10,000 MMU CELLS/CAPSULE PO SCH ×2 (09:56→20:50)
[2020-10-12 11:00] VITALS: BP 120/77
--- NOTE | 2020-10-12 11:34 | NUR ---
Amendment to previous note, NO tube feeds. Pt had pulled out corpak and was unable to replace. No longer receiving tube feeds since 10/07. Addendum: 10/12/20 at [address] Amended: Links added.
[2020-10-12 13:32] LABS: MAGNESIUM 1.5 MG/DL (1.5-2.4)
[2020-10-12] MEDS ORDERED: potassium Cl 20 mEq SR tablet PO PRN (14:05)
[2020-10-12] MEDS: potassium CL 10mEq/100ml bag 100 ML IV PRN ×7 (14:28→23:39)
[2020-10-12 16:07] VITALS: BP 123/69
[2020-10-12] MEDS ORDERED: LORazepam 2 mg/ml vial IV ONE (17:45)
[2020-10-12] MEDS: LORazepam 2 mg/ml vial IV PRN ×3 (17:49→22:51)
--- NOTE | 2020-10-12 17:56 | NUR ---
Contacted Dr Bustillo the senior sales operations analyst o/c and advised patient is yelling, kicking and stating " I want to kill myself, I am going to jump out of the window. Received orders from Dr Bustillo for a sitter at bedside, 1 mg IV Ativan and 10 mg IM Geodon if patient becomes excessively agitated. Dr Bustillo does not want me to put the order in at this time would like me to given report to on coming nursing staff.
[2020-10-12 18:00] VITALS: BP 133/74
--- NOTE | 2020-10-12 18:30 | NUR ---
Problems reprioritized. Patient report given, questions answered & plan of care reviewed with Angelia HILL.
--- NOTE | 2020-10-12 18:36 | NUR ---
Patients son Antione called patient gave permission to speak to his son regarding his condition. Called Antione at [phone] and advised that patient became very agitated and confused. Patient was stating that he wanted to kill himself and jump out the window. Patients son notified that patient was given 1mg IV ativan and has a sitter in the room at this time.
[2020-10-12] MEDS: insulin glargine (Lantus) pen - multi-dose SQ SCH (20:05)
[2020-10-12] MEDS: traZODone 50mg tablet PO SCH (20:51)
[2020-10-12] MEDS: enoxaparin 30mg/0.3ml syringe SUBCUT SCH (20:51)
[2020-10-12 22:00] VITALS: BP 137/71
--- NOTE | 2020-10-12 23:34 | NUR ---
Just noted that the sitter order appears to be completed. Received from previous nurse that md wants patient to have a sitter. Previous Nurse accidently completed the new order she put in. Will put orders for a sitter.
--- NOTE | 2020-10-12 23:50 | NUR ---
Patient's ostomy bag open up related to gas. Huge mess. New ostomy placed. Functioning well.
[2020-10-13] MEDS: potassium CL 10mEq/100ml bag 100 ML IV PRN (01:57)
[2020-10-13 02:00] VITALS: BP 125/50
[2020-10-13] MEDS: LORazepam 2 mg/ml vial IV PRN ×4 (02:30→19:57)
[2020-10-13] MEDS: ipratropium/albuterol 3ml nebule NEB SCH ×4 (02:53→21:09)
--- NOTE | 2020-10-13 05:00 | NUR ---
Wound dressing changed this morning.
[2020-10-13 05:04] LABS: BASOPHILS # (AUTO) 0.3 X10'3 (0-0.2); BASOPHILS % (AUTO) 1.3 % (0-1); EOSINOPHILS # (AUTO) 0.1 X10'3 (0-0.9); EOSINOPHILS % (AUTO) 0.4 % (0-6); HEMATOCRIT 24.8 % (42.0-52.0); HEMOGLOBIN 8.4 g/dl (14.0-17.9); LYMPHOCYTES # (AUTO) 1.1 X10'3 (1.1-4.8); LYMPHOCYTES % (AUTO) 5.1 % (21-51); MEAN CORPUSCULAR HEMOGLOBIN 30.3 PG (27.0-31.0); MEAN CORPUSCULAR HGB CONC 33.9 g/dL (33.0-36.5); MEAN CORPUSCULAR VOLUME 89.3 FL (78-98); MEAN PLATELET VOLUME 8.3 FL (7.4-10.4); MONOCYTES # (AUTO) 0.8 X10'3 (0-0.9); MONOCYTES % (AUTO) 4.1 % (2-12); NEUTROPHILS # (AUTO) 18.6 X10'3 (1.8-7.7); NEUTROPHILS % (AUTO) 89.1 % (42-75); PLATELET COUNT 463 X10'3 (140-440); RED BLOOD COUNT 2.78 X10'6 (4.70-6.10); RED CELL DISTRIBUTION WIDTH 16.6 % (11.5-14.5); WHITE BLOOD COUNT 20.8 X10'3 (4.5-11.0)
[2020-10-13 05:14] LABS: ALANINE AMINOTRANSFERASE 59 U/L (12-78); ALBUMIN 1.2 G/DL (3.4-5.0); ALBUMIN/GLOBULIN RATIO 0.4 (1.1-1.5); ALKALINE PHOSPHATASE 243 IU/L (46-116); ANION GAP 8 (8-16); ASPARTATE AMINO TRANSFERASE 33 U/L (10-37); BILIRUBIN,TOTAL 0.4 MG/DL (0.1-1.0); BLOOD UREA NITROGEN 52 MG/DL (7-18); BUN/CREATININE RATIO 28.4 (5.4-32.0); CALCIUM 7.3 MG/DL (8.5-10.1); CHLORIDE 112 MMOL/L (99-107); CREATININE 1.83 MG/DL (0.60-1.10); GLUCOSE 105 MG/DL (70-104); MAGNESIUM 1.3 MG/DL (1.5-2.4); PHOSPHORUS 2.4 MG/DL (2.3-4.5); SODIUM 150 MMOL/L (135-145); TOTAL PROTEIN 4.4 G/DL (6.4-8.2); eGFR 36 ML/MIN
[2020-10-13 05:16] LABS: POTASSIUM 2.8 MMOL/L (3.5-5.1)
--- NOTE | 2020-10-13 05:40 | NUR ---
Critical K+ of 2.8 this morning Antione Gil notified, to replace potassium per standard protocol. Also inform him of patient's magnesium level of 1.3. DO NOT REPLACE MAGNESIUM. Will continue with current orders.
[2020-10-13] MEDS ORDERED: potassium Cl 20 mEq SR tablet PO PRN ×2 (05:55)
[2020-10-13] MEDS ORDERED: POTASSIUM BICARB 20meq eff tab 20 MEQ TABLET.EFF PO PRN (06:06)
[2020-10-13 07:00] VITALS: BP 118/71
[2020-10-13] MEDS: aspirin 81mg tablet.DR PO SCH ×2 (08:00→08:08)
[2020-10-13] MEDS: lactobacillus rhamnosus 10,000 MMU CELLS/CAPSULE PO SCH ×3 (08:00→21:14)
[2020-10-13] MEDS: ARGININE/GLUTAMINE/CALCIUM BMB (JUVEN 19.3GM PKT) 1 EACH POWD.PACK PO SCH ×2 (08:00→20:00)
[2020-10-13] MEDS: POTASSIUM BICARB 20meq eff tab 20 MEQ TABLET.EFF PO PRN (08:10)
[2020-10-13] MEDS: nystatin 15 GM powder TP SCH ×2 (08:15→21:17)
[2020-10-13] MEDS: potassium Cl 40MEQ/1/2NS 520ml 520 ML IV PRN ×2 (09:28→13:59)
--- NOTE | 2020-10-13 09:42 | NUR ---
Amendment to previous note, NO tube feeds. Pt had pulled out corpak and was unable to replace. No longer receiving tube feeds since 10/07. On a pureed diet, is a feeder. Last BM 10/11 documented with 1625 mL stool output per I&O. Has significant nutrition needs r/t multiple debridement for necrotizing fasciitis. Not meeting needs currently. Not eating, documented as confused, agitated, resistant to care and screaming; he a total assit with eating, in restraints. Sodium now decreasing slowly from 152. Receiving IV sodium bicarbonate/dextose. Per CM note plans to transfer to [facility] Rec: 1. continue pureed/thin diet per [employer] recs; encourage PO w/ assistance given ALOC as able 2. bowel care per rx Addendum: 10/13/20 at [address] Amended: Links added.
--- NOTE | 2020-10-13 10:27 | NUR ---
Yao is not available for this Pt., but Pt. is refusing all oral meds, so I marked it as patient refusal.
--- NOTE | 2020-10-13 13:24 | NUR ---
Reassessment 10/13: On a pureed diet, is a feeder, not meeting needs. Pt does well with water per bedside RN, sodium is improving, does well when the drink is held to his mouth and will drink it. Last BM 10/12 documented with 1550 mL stool output per I&O. Has significant nutrition needs r/t multiple debridement for necrotizing fasciitis. Not meeting needs currently. Not eating, documented as confused, agitated, resistant to care and screaming; he a total assist with eating, in restraints. Sodium now decreasing slowly from 152. Receiving IV sodium bicarbonate/dextose. Per CM note plans to transfer to LTAC this weekend. Yao was provided in water flush, with corpak out unable to give this route. Recommend to mix the yao in a shake and offer to patient d/w dietary. Rec: 1. continue pureed/thin diet per [employer] recs; encourage PO w/ assistance given ALOC as able 2. bowel care per rx 3. Offer Yao in a milk shake Addendum: 10/13/20 at [address] Amended: Links added.
[2020-10-13 15:00] VITALS: BP 118/72
[2020-10-13 19:30] VITALS: BP 120/69
--- NOTE | 2020-10-13 19:30 | NUR ---
CBI with saline to s/p cath; urine more yellow with slight increase in CBI; aguirre cath patent (catheters draining to gravity drainage bags) Addendum: 10/14/20 at 0037 by Stephanie Hodgson RN Amended: Links added.
--- NOTE | 2020-10-13 19:58 | NUR ---
ATIVAN ADMINISTERED. TONYA WOULD NOT SCAN. NO OTHER DOWS AVAILABLE. PT IN MUCH DISTRESS AFTER TALKING TO FAMILY. NEEDED ATIVAN STAT.
[2020-10-13] MEDS: insulin glargine (Lantus) pen - multi-dose SQ SCH (21:00)
[2020-10-13] MEDS: traZODone 50mg tablet PO SCH (21:14)
[2020-10-13] MEDS: enoxaparin 30mg/0.3ml syringe SUBCUT SCH (21:15)
[2020-10-13 22:00] VITALS: BP 121/73
[2020-10-14] MEDS: LORazepam 2 mg/ml vial IV PRN ×4 (00:46→23:10)
[2020-10-14 02:00] VITALS: BP 117/70
[2020-10-14 02:54] LABS: BASOPHILS # (AUTO) 0.1 X10'3 (0-0.2); BASOPHILS % (AUTO) 0.3 % (0-1); EOSINOPHILS # (AUTO) 0.1 X10'3 (0-0.9); EOSINOPHILS % (AUTO) 0.6 % (0-6); HEMATOCRIT 23.8 % (42.0-52.0); HEMOGLOBIN 7.8 g/dl (14.0-17.9); LYMPHOCYTES # (AUTO) 1.1 X10'3 (1.1-4.8); LYMPHOCYTES % (AUTO) 6.9 % (21-51); MEAN CORPUSCULAR HEMOGLOBIN 29.5 PG (27.0-31.0); MEAN CORPUSCULAR VOLUME 89.6 FL (78-98); MEAN PLATELET VOLUME 8.7 FL (7.4-10.4); MONOCYTES # (AUTO) 0.7 X10'3 (0-0.9); MONOCYTES % (AUTO) 4.1 % (2-12); NEUTROPHILS # (AUTO) 14.6 X10'3 (1.8-7.7); NEUTROPHILS % (AUTO) 88.1 % (42-75); PLATELET COUNT 460 X10'3 (140-440); RED BLOOD COUNT 2.65 X10'6 (4.70-6.10); RED CELL DISTRIBUTION WIDTH 17.7 % (11.5-14.5); WHITE BLOOD COUNT 16.5 X10'3 (4.5-11.0)
[2020-10-14 02:58] LABS: ALBUMIN 1.2 G/DL (3.4-5.0); ANION GAP 6 (8-16); BLOOD UREA NITROGEN 46 MG/DL (7-18); BUN/CREATININE RATIO 25.3 (5.4-32.0); CHLORIDE 112 MMOL/L (99-107); CREATININE 1.82 MG/DL (0.60-1.10); GLUCOSE 73 MG/DL (70-104); POTASSIUM 3.2 MMOL/L (3.5-5.1); SODIUM 148 MMOL/L (135-145); TOTAL CARBON DIOXIDE 30.3 MMOL/L (24-32); eGFR 36 ML/MIN
[2020-10-14] MEDS: ipratropium/albuterol 3ml nebule NEB SCH ×4 (03:24→22:38)
[2020-10-14] MEDS: potassium Cl 40MEQ/1/2NS 520ml 520 ML IV PRN (04:35)
[2020-10-14 06:00] VITALS: BP 115/72
--- NOTE | 2020-10-14 07:02 | NUR ---
Patient in room PCU 3010. I have received report from SERGIO SAUNDERS and had the opportunity to ask questions and assume patient care.
[2020-10-14] MEDS: ARGININE/GLUTAMINE/CALCIUM BMB (JUVEN 19.3GM PKT) 1 EACH POWD.PACK PO SCH ×3 (07:32→20:00)
[2020-10-14] MEDS: nystatin 15 GM powder TP SCH ×2 (08:00→19:11)
[2020-10-14] MEDS: lactobacillus rhamnosus 10,000 MMU CELLS/CAPSULE PO SCH ×2 (09:07→19:08)
[2020-10-14] MEDS: aspirin 81mg tablet.DR PO SCH (09:08)
[2020-10-14 11:00] VITALS: BP 125/62
[2020-10-14 15:00] VITALS: BP 109/65
[2020-10-14 18:00] VITALS: BP 95/59
--- NOTE | 2020-10-14 18:23 | NUR ---
Problems reprioritized. Patient report given, questions answered & plan of care reviewed with SERGIO CASILLAS.
[2020-10-14] MEDS: enoxaparin 30mg/0.3ml syringe SUBCUT SCH (19:08)
[2020-10-14 20:00] VITALS: BP 105/59
[2020-10-14] MEDS: insulin glargine (Lantus) pen - multi-dose SQ SCH (21:00)
[2020-10-14] MEDS: traZODone 50mg tablet PO SCH (21:22)
[2020-10-15] MEDS: temazepam 15mg capsule CORPAK PRN (00:35)
[2020-10-15 02:00] VITALS: BP 93/75
[2020-10-15] MEDS: ipratropium/albuterol 3ml nebule NEB SCH ×4 (03:40→21:44)
[2020-10-15] MEDS: LORazepam 2 mg/ml vial IV PRN ×2 (03:42→23:07)
[2020-10-15 06:03] LABS: BASOPHILS # (AUTO) 0.1 X10'3 (0-0.2); BASOPHILS % (AUTO) 0.4 % (0-1); EOSINOPHILS % (AUTO) 0 % (0-6); HEMATOCRIT 23.2 % (42.0-52.0); HEMOGLOBIN 7.5 g/dl (14.0-17.9); LYMPHOCYTES # (AUTO) 0.9 X10'3 (1.1-4.8); LYMPHOCYTES % (AUTO) 4.4 % (21-51); MEAN CORPUSCULAR HEMOGLOBIN 29.4 PG (27.0-31.0); MEAN CORPUSCULAR HGB CONC 32.2 g/dL (33.0-36.5); MEAN CORPUSCULAR VOLUME 91.3 FL (78-98); MEAN PLATELET VOLUME 8.6 FL (7.4-10.4); MONOCYTES # (AUTO) 0.7 X10'3 (0-0.9); MONOCYTES % (AUTO) 3.5 % (2-12); NEUTROPHILS # (AUTO) 18.5 X10'3 (1.8-7.7); NEUTROPHILS % (AUTO) 91.7 % (42-75); PLATELET COUNT 422 X10'3 (140-440); RED BLOOD COUNT 2.54 X10'6 (4.70-6.10); RED CELL DISTRIBUTION WIDTH 17.5 % (11.5-14.5); WHITE BLOOD COUNT 20.2 X10'3 (4.5-11.0)
[2020-10-15 06:15] LABS: ANION GAP 9 (8-16); BLOOD UREA NITROGEN 44 MG/DL (7-18); BUN/CREATININE RATIO 26.8 (5.4-32.0); CALCIUM 6.4 MG/DL (8.5-10.1); CHLORIDE 118 MMOL/L (99-107); CREATININE 1.64 MG/DL (0.60-1.10); GLUCOSE 66 MG/DL (70-104); SODIUM 152 MMOL/L (135-145); TOTAL CARBON DIOXIDE 24.8 MMOL/L (24-32); eGFR 41 ML/MIN
[2020-10-15 06:45] LABS: POTASSIUM 2.7 MMOL/L (3.5-5.1)
--- NOTE | 2020-10-15 07:00 | NUR ---
Problems reprioritized. Patient report given, questions answered & plan of care reviewed with Ana HILL.
--- NOTE | 2020-10-15 07:20 | NUR ---
Page Sent PAGER ID: [phone] MESSAGE: Tru Anish Zacarias Rm #[id number] critical K+ 2.7, BG 67 RN for day is Ana #[phone] Addendum: 10/15/20 at 07 by Marycruz Nolan RN Dr. Duncan keene Addendum: 10/15/20 at 07 by Marycruz Nolan RN called October no answer- Ana HILL [facility] for Dr. Fontanez @ [phone]
--- NOTE | 2020-10-15 07:29 | NUR ---
Called deep submergence vehicle crewmember to notify of critical, magnesium redraw lab?, pt low BG. No answer and left voicemail with contact information for MD to return call.
[2020-10-15 08:00] VITALS: BP 105/64
[2020-10-15] MEDS: ARGININE/GLUTAMINE/CALCIUM BMB (JUVEN 19.3GM PKT) 1 EACH POWD.PACK PO SCH ×2 (08:00→20:00)
--- NOTE | 2020-10-15 08:08 | NUR ---
Spoke with Emerson about potassium and low glucose levels this AM. No new orders at this time but states he will take a look at it.
--- NOTE | 2020-10-15 08:08 | NUR ---
Emerson also notified about low mag level from 10/13 but stated "I'm not worried about that." No new orders at this time.
[2020-10-15] MEDS: aspirin 81mg tablet.DR PO SCH (10:17)
[2020-10-15] MEDS: lactobacillus rhamnosus 10,000 MMU CELLS/CAPSULE PO SCH ×2 (10:17→20:25)
[2020-10-15] MEDS: nystatin 15 GM powder TP SCH ×2 (10:18→20:23)
[2020-10-15] MEDS: POTASSIUM BICARB 20meq eff tab 20 MEQ TABLET.EFF PO PRN (10:28)
[2020-10-15] MEDS: ondansetron/PF 4mg/2ml inj IV PRN (10:41)
[2020-10-15] MEDS: potassium CL 10mEq/100ml bag 100 ML IV PRN ×8 (10:49→19:20)
[2020-10-15 11:00] VITALS: BP 96/57
--- NOTE | 2020-10-15 12:37 | NUR ---
wAS TOLD IN REPORT THAT THE INSTESTINE LOOKED BUT THAT MD WAS NOTIFIED. UNABLE TO VERIFY IN NOTE. OSTOMY LEAKING. REMOVED ALL DRESSINGS AND CLEANED PT. UNABLE TO LOCATE EXACT STOMA AND BROWN DUSKY WITH SOME BLACK NOTED ON INTESTINE TISSUE. LARGE AND ABNORMAL STOMA TISSUE. LARGE BLOOD CLOT AND RED BLOOD NOTED IN OSTOMY STOOL. UNSURE IF FROM STITCHING OF OSTOMY OR STOOL ITSELF. SKIN UNDER INTESTINE EXCORIATED AND BLEEDING ALSO. NOTIFIED CHARGE TO ASSESS. PICTURES TAKEN. FRANKY NOTIFIED BY CHARGE WHILE PRIMARY RN PROVIDED WOUND CARE AND APPLIED ANOTHER OSTOMY BAG. SKIN PROTECTANT PLACED ON EXCORIATED SKIN CIRCUM STOMA. Addendum: 10/15/20 at 1250 by Ana Rowan RN Amended: Links added.
--- NOTE | 2020-10-15 12:44 | NUR ---
WHILE CLEANING SUPRAPUBIC CATHETER YELLOW EXUDATE - PUS - CAME FROM SUPRAPUBIC INSERTION SITE. SURROUNDING SKIN BRIGHT RED AND INDICATES INFECTION. WILL NOTIFY Addendum: 10/15/20 at 1250 by Ana Rowan RN Amended: Links added.
--- NOTE | 2020-10-15 12:53 | NUR ---
NO RESTRAINT ORDER NOTED. PT. STILL NEEDS RESTRAINTS HE IS PULLING AT HIS LINES AT HIS COLOSTOMY AND IS ACUTELY CONFUSED. REQUESTED COREY VILLALPANDO TO FIND RESTRAINT ORDER AND SHE STATED THAT ALL PTS WITH RESTRAINTS HAD ORDERS AND THAT SHE HAD CHECKED ALREADY.
--- NOTE | 2020-10-15 14:47 | NUR ---
NOTIFIED MD COFFMAN OF PURULENT DRAINAGE FROM AROUND SUPRAPUBIC CATHETER SITE. NO NEW ORDERS AT THIS TIME.
--- NOTE | 2020-10-15 14:48 | NUR ---
CALLED LUIS ENRIQUE TO NOTIFY OF APPEARANCE OF STOMA. ALSO STATED THAT THE COLOSTOMY HAD BEEN LEAKING OFTEN AND THAT THE STOOL WAS BLOOD TINGED. STATED THAT PRIMARY rn UNAWARE OF WHERE STOOL WAS COMING FROM. STATED HE HAD SPOKE TO FRANKY ABOUT IT BUT THAT HE PLANNED ON ROUNDING ON PT. TODAY AND ASSESSING STOMA. FRANKY PLANS TO FIX STOMA SUNDAY PER LUIS ENRIQUE. CLEANED PT. AND CHANGED HIS OSTOMY SITE FOR THE 4TH TIME TODAY
[2020-10-15 16:53] VITALS: BP 94/52
[2020-10-15 18:00] VITALS: BP 101/55
--- NOTE | 2020-10-15 18:52 | NUR ---
Patient in room PCU 3023. I have received report from Ana HILL and had the opportunity to ask questions and assume patient care.
--- NOTE | 2020-10-15 18:53 | NUR ---
Gave report to Rina HILL.
[2020-10-15] MEDS: enoxaparin 30mg/0.3ml syringe SUBCUT SCH (20:00)
[2020-10-15] MEDS: traZODone 50mg tablet PO SCH (20:25)
[2020-10-15] MEDS: insulin glargine (Lantus) pen - multi-dose SQ SCH (21:00)
[2020-10-15 22:00] VITALS: BP 113/67
--- NOTE | 2020-10-16 01:39 | NUR ---
patient had mannie red blood and has a prolapse of the intestines in which MD is aware. Output was 20 ml. RN will continue to monitor patient. RN redressed ileostomy and changed the midline dressing d/t leaking.
[2020-10-16 02:00] VITALS: BP 101/54
[2020-10-16] MEDS: ipratropium/albuterol 3ml nebule NEB SCH ×4 (03:11→21:00)
[2020-10-16 06:00] VITALS: BP 97/58
[2020-10-16 06:24] LABS: ALBUMIN 1.2 G/DL (3.4-5.0); ANION GAP 10 (8-16); BASOPHILS % (AUTO) 0.1 % (0-1); BLOOD UREA NITROGEN 50 MG/DL (7-18); BUN/CREATININE RATIO 22.5 (5.4-32.0); CALCIUM 7.6 MG/DL (8.5-10.1); CHLORIDE 116 MMOL/L (99-107); CREATININE 2.22 MG/DL (0.60-1.10); EOSINOPHILS % (AUTO) 0 % (0-6); GLUCOSE 113 MG/DL (70-104); HEMATOCRIT 24.7 % (42.0-52.0); HEMOGLOBIN 8.1 g/dl (14.0-17.9); LYMPHOCYTES # (AUTO) 0.8 X10'3 (1.1-4.8); LYMPHOCYTES % (AUTO) 3.2 % (21-51); MEAN CORPUSCULAR HEMOGLOBIN 29.7 PG (27.0-31.0); MEAN CORPUSCULAR HGB CONC 32.7 g/dL (33.0-36.5); MEAN CORPUSCULAR VOLUME 90.9 FL (78-98); MEAN PLATELET VOLUME 8.7 FL (7.4-10.4); MONOCYTES # (AUTO) 0.9 X10'3 (0-0.9); MONOCYTES % (AUTO) 3.4 % (2-12); NEUTROPHILS # (AUTO) 24.6 X10'3 (1.8-7.7); NEUTROPHILS % (AUTO) 93.3 % (42-75); PLATELET COUNT 440 X10'3 (140-440); POTASSIUM 4.2 MMOL/L (3.5-5.1); RED BLOOD COUNT 2.72 X10'6 (4.70-6.10); SODIUM 153 MMOL/L (135-145); TOTAL CARBON DIOXIDE 26.7 MMOL/L (24-32); eGFR 29 ML/MIN
[2020-10-16 06:26] LABS: PARTIAL THROMBOPLASTIN TIME 26 SECONDS (22-32)
--- NOTE | 2020-10-16 06:29 | NUR ---
Problems reprioritized. Patient report given, questions answered & plan of care reviewed with Donald RN.
[2020-10-16 06:34] LABS: WHITE BLOOD COUNT 26.3 X10'3 (4.5-11.0)
[2020-10-16 07:12] LABS: ANISOCYTOSIS 1+; PLATELET ESTIMATE NORMAL; TOTAL CELLS COUNTED 100
[2020-10-16 07:13] LABS: POIKILOCYTOSIS FEW
--- NOTE | 2020-10-16 07:17 | NUR ---
Attempted to call Int. but was not able to reach. Will try to call again to report critical value at a later time.
[2020-10-16] MEDS: aspirin 81mg tablet.DR PO SCH (08:00)
[2020-10-16] MEDS: lactobacillus rhamnosus 10,000 MMU CELLS/CAPSULE PO SCH ×2 (08:00→20:26)
[2020-10-16] MEDS: ARGININE/GLUTAMINE/CALCIUM BMB (JUVEN 19.3GM PKT) 1 EACH POWD.PACK PO SCH ×2 (08:00→20:00)
[2020-10-16] MEDS: nystatin 15 GM powder TP SCH ×2 (09:18→20:32)
[2020-10-16 11:00] VITALS: BP 96/51
[2020-10-16 15:00] VITALS: BP 96/54
[2020-10-16 18:00] VITALS: BP 103/50
--- NOTE | 2020-10-16 18:49 | NUR ---
Patient in room PCU 3023. I have received report from Donald HILL and had the opportunity to ask questions and assume patient care.
--- NOTE | 2020-10-16 19:02 | NUR ---
Problems reprioritized. Patient report given, questions answered & plan of care reviewed with Joann HILL.
[2020-10-16] MEDS: ertapenem sod inj 1 GM in normal saline 100ml IV soln 100 ML IV SCH (19:40)
[2020-10-16] MEDS: enoxaparin 30mg/0.3ml syringe SUBCUT SCH (20:00)
--- NOTE | 2020-10-16 20:17 | NUR ---
Patients son Gian called for information about his dad's surgery. His number is [phone]. This son is not on the SBAR so asked permission from patient to give information. Patient said no and to leave him alone. Relayed the message to the son and told him to call back in the morning and that the patient is very tired after seeing family members today.
[2020-10-16] MEDS: traZODone 50mg tablet PO SCH (20:26)
--- NOTE | 2020-10-16 20:30 | NUR ---
Per surgeon and PA progress notes patient may be taken to surgery tomorrow. Was told in report that surgery is Sunday. Spoke with charge nurse. Held Lovenox for tonight in possible preparation for surgery tomorrow.
[2020-10-16] MEDS: insulin glargine (Lantus) pen - multi-dose SQ SCH (20:31)
[2020-10-16 21:00] LABS: CLARITY,URINE CLOUDY (Clear); COLOR,URINE YELLOW (Yellow); GLUCOSE, URINE NEGATIVE (Neg); KETONES,URINE NEGATIVE (Neg); LEUKOCYTE ESTERASE ,URINE LARGE (Neg); NITRITES, URINE NEGATIVE (Neg); OCCULT BLOOD,URINE LARGE (Neg); PH,URINE 6.5 (4.8-8.0); PROTEIN,URINE 30 mg/dl (Neg); UROBILINOGEN,URINE 0.2 E.U/dL (0.2-1.0)
[2020-10-16 21:15] LABS: UA COLLECTION TYPE STRAIGHT CATH
[2020-10-16 21:47] LABS: BACTERIA,URINE 3+ /HPF (Neg); MUCUS STRANDS NONE SEEN /LPF (Neg); SQUAMOUS EPITHELIAL CELL,UR NONE SEEN /LPF (FEW); WBC,URINE TNTC /HPF (0-4)
[2020-10-16 22:00] VITALS: BP 86/49
[2020-10-17] VITALS (16 sets, daily range): BP systolic 52–92; BP diastolic 34–60
--- NOTE | 2020-10-17 01:40 | NUR ---
Patients BP low, TAPE KELLER OPERATOR called Addendum: 10/17/20 at 0401 by Joann Lazaro RN 1 Liter ordered NS by TAPE KELLER OPERATOR, drawing labs
[2020-10-17] MEDS ORDERED: normal saline 250ml IV soln 250 ML IV ONE ×2 (02:05)
[2020-10-17] MEDS ORDERED: traZODone 50mg tablet PO PRN (02:25)
[2020-10-17 02:32] LABS: BASOPHILS % (AUTO) 0.1 % (0-1); EOSINOPHILS % (AUTO) 0 % (0-6); HEMATOCRIT 26.1 % (42.0-52.0); HEMOGLOBIN 8.4 g/dl (14.0-17.9); LYMPHOCYTES % (AUTO) 3.4 % (21-51); MEAN CORPUSCULAR HGB CONC 32.3 g/dL (33.0-36.5); MEAN CORPUSCULAR VOLUME 89.8 FL (78-98); MONOCYTES # (AUTO) 0.6 X10'3 (0-0.9); MONOCYTES % (AUTO) 2.2 % (2-12); NEUTROPHILS % (AUTO) 94.3 % (42-75); PLATELET COUNT 465 X10'3 (140-440); RED CELL DISTRIBUTION WIDTH 17.8 % (11.5-14.5)
[2020-10-17 02:41] LABS: PARTIAL THROMBOPLASTIN TIME 35 SECONDS (22-32)
[2020-10-17 02:43] LABS: ALANINE AMINOTRANSFERASE 44 U/L (12-78); ALBUMIN 1.1 G/DL (3.4-5.0); ALBUMIN/GLOBULIN RATIO 0.3 (1.1-1.5); ALKALINE PHOSPHATASE 252 IU/L (46-116); ANION GAP 15 (8-16); ASPARTATE AMINO TRANSFERASE 21 U/L (10-37); BILIRUBIN,TOTAL 0.4 MG/DL (0.1-1.0); BLOOD UREA NITROGEN 58 MG/DL (7-18); BUN/CREATININE RATIO 20.2 (5.4-32.0); CALCIUM 7.2 MG/DL (8.5-10.1); CHLORIDE 114 MMOL/L (99-107); CREATININE 2.87 MG/DL (0.60-1.10); GLUCOSE 76 MG/DL (70-104); MAGNESIUM 1.1 MG/DL (1.5-2.4); POTASSIUM 4.3 MMOL/L (3.5-5.1); SODIUM 152 MMOL/L (135-145); TOTAL CARBON DIOXIDE 23.5 MMOL/L (24-32); TOTAL PROTEIN 4.4 G/DL (6.4-8.2); eGFR 21 ML/MIN
[2020-10-17 02:46] LABS: WHITE BLOOD COUNT 28.6 X10'3 (4.5-11.0)
[2020-10-17] MEDS: ipratropium/albuterol 3ml nebule NEB SCH ×4 (02:52→21:13)
--- NOTE | 2020-10-17 03:15 | NUR ---
Called Perla Lugo NP with BP 82/50 following 1L bolus. New orders received.
[2020-10-17] MEDS ORDERED: normal saline 1000ml 1,000 ML IVB ONE (03:20)
[2020-10-17] MEDS ORDERED: sodium chloride 0.45% 1,000 ML IV SCH (04:35)
--- NOTE | 2020-10-17 05:00 | NUR ---
Called Perla Lugo NP with (+) b/c gram (-) rods. Also updated with most recent BP 91/44. No orders received at this time.
--- NOTE | 2020-10-17 06:44 | NUR ---
Problems reprioritized. Patient report given, questions answered & plan of care reviewed with Madison HILL.
--- NOTE | 2020-10-17 06:45 | NUR ---
During bedside report low BP obtained. MAP at 60. Called DOLL SURGEON with vitals and she said to continue to monitor.
--- NOTE | 2020-10-17 07:01 | NUR ---
Patient in room PCU 3023. I have received report from Joann HILL and had the opportunity to ask questions and assume patient care.
[2020-10-17] MEDS: aspirin 81mg tablet.DR PO SCH (07:10)
[2020-10-17 07:17] LABS: TOTAL CELLS COUNTED 100
[2020-10-17 07:20] LABS: ANISOCYTOSIS 1+; PLATELET ESTIMATE INCREASED; TARGET CELLS FEW
[2020-10-17 07:21] LABS: ELLIPTOCYTES FEW; SCHISTOCYTES FEW; TEAR DROP CELLS FEW
[2020-10-17 07:22] LABS: ACANTHOCYTES FEW; BURR CELLS FEW; STOMATOCYTES FEW
[2020-10-17] MEDS: nystatin 15 GM powder TP SCH ×2 (07:48→20:25)
[2020-10-17] MEDS: ertapenem sod inj 1 GM in normal saline 100ml IV soln 100 ML IV SCH (07:48)
[2020-10-17] MEDS: lactobacillus rhamnosus 10,000 MMU CELLS/CAPSULE PO SCH ×2 (07:48→20:00)
[2020-10-17] MEDS: ARGININE/GLUTAMINE/CALCIUM BMB (JUVEN 19.3GM PKT) 1 EACH POWD.PACK PO SCH (07:49)
--- NOTE | 2020-10-17 12:05 | NUR ---
Notified RAJESH Duque about patient's persistent hypotension
--- NOTE | 2020-10-17 14:53 | NUR ---
Reassessment 10/17: On a pureed diet, is a feeder, not meeting needs. Pt does well with water per bedside RN, sodium is improving, does well when the drink is held to his mouth and will drink it. Last BM 10/16 documented with 1550 mL stool output per I&O. Has significant nutrition needs r/t multiple debridement for necrotizing fasciitis and colostomy placement after having a diverting loop ileostomy. Will return to surgery tomorrow, per surgeon's note the patient's colostomy prolapsed. Not meeting needs currently. Not eating, documented as confused, agitated, resistant to care and screaming; he a total assist with eating, in restraints. Sodium still 152. Receiving IV sodium chloride, recommend dextrose versus NS in view of hypernatremia. Pt would benefit greatly from replacement of corpak after surgery tomorrow for tube feedings as he is not meeting his needs with PO intake and will continue to have difficulty healing, d/w bedside RN to d/w MD. Yao was provided in water flush, with corpak out unable to give this route. Recommend to mix the yao in a shake and offer to patient d/w dietary. Rec: 1. continue pureed/thin diet per [employer]IS[employer] recs; encourage PO w/ assistance given ALOC as able 2. bowel care per rx 3. Offer Yao in a milk shake 4. Would benefit from tube feeding to meet needs as unable to meet nutrition needs PO. Recommend corpak using Vital High Protein at 80ml/hr goal; to provide 1920ml volume, 1920kcals, 1613ml free water, and 168g protein with additional water flush 200ml q 4 hours Addendum: 10/17/20 at [address] Amended: Links added.
[2020-10-17] MEDS ORDERED: DOPamine 400mg/D5W 250ml 250 ML IV SCH (17:10)
--- NOTE | 2020-10-17 18:25 | NUR ---
Problems reprioritized. Patient report given, questions answered & plan of care reviewed with Barbie HILL.
--- NOTE | 2020-10-17 18:34 | NUR ---
Patient in room PCU 3023. I have received report from Madison HILL and had the opportunity to ask questions and assume patient care.
[2020-10-17] MEDS: dextrose 5%-1/4 normal saline 1,000 ML IV SCH (19:15)
[2020-10-17] MEDS ORDERED: albumin (human) 25% 100 ML IV solution IV ONE (21:30)
[2020-10-18] VITALS: BP 72/53
[2020-10-18 02:00] VITALS: BP 75/45
[2020-10-18] MEDS: ipratropium/albuterol 3ml nebule NEB SCH ×2 (03:30→07:21)
[2020-10-18 04:00] VITALS: BP 75/47
[2020-10-18] MEDS ORDERED: albumin (human) 25% 100 ML IV solution IV ONE (04:30)
--- NOTE | 2020-10-18 04:30 | NUR ---
Called Brittney, October INFORMATION SYSTEMS DIRECTOR Regarding BP in 70s-80s, and new onset emesis consisting of coffee ground/brown emesis. NG tube was placed with October at bedside, and albumin, protonix IVP, and protonix IV were ordered and administrated.
[2020-10-18] MEDS ORDERED: pantoprazole 40 MG vial IV ONE (04:40)
[2020-10-18] MEDS: ondansetron/PF 4mg/2ml inj IV PRN (04:40)
[2020-10-18 04:50] LABS: BASOPHILS % (AUTO) 0.1 % (0-1); EOSINOPHILS % (AUTO) 0 % (0-6); LYMPHOCYTES # (AUTO) 2.1 X10'3 (1.1-4.8); LYMPHOCYTES % (AUTO) 7.9 % (21-51); MEAN CORPUSCULAR HEMOGLOBIN 29.1 PG (27.0-31.0); MEAN CORPUSCULAR HGB CONC 32.1 g/dL (33.0-36.5); MEAN CORPUSCULAR VOLUME 90.6 FL (78-98); MONOCYTES # (AUTO) 0.6 X10'3 (0-0.9); MONOCYTES % (AUTO) 2.1 % (2-12); NEUTROPHILS # (AUTO) 24.3 X10'3 (1.8-7.7); NEUTROPHILS % (AUTO) 89.9 % (42-75); PLATELET COUNT 321 X10'3 (140-440); RED BLOOD COUNT 2.01 X10'6 (4.70-6.10); RED CELL DISTRIBUTION WIDTH 17.4 % (11.5-14.5)
[2020-10-18] MEDS: pantoprazole 40MG/NS 100ML BAG 100 ML IV SCH ×2 (05:04→11:00)
[2020-10-18 05:10] LABS: ALBUMIN 1.7 G/DL (3.4-5.0); ANION GAP 14 (8-16); BLOOD UREA NITROGEN 69 MG/DL (7-18); BUN/CREATININE RATIO 19.9 (5.4-32.0); CALCIUM 6.9 MG/DL (8.5-10.1); CHLORIDE 112 MMOL/L (99-107); CREATININE 3.46 MG/DL (0.60-1.10); GLUCOSE 150 MG/DL (70-104); MAGNESIUM 1.2 MG/DL (1.5-2.4); PHOSPHORUS 4.8 MG/DL (2.3-4.5); POTASSIUM 4.2 MMOL/L (3.5-5.1); SODIUM 150 MMOL/L (135-145); TOTAL CARBON DIOXIDE 24.2 MMOL/L (24-32); eGFR 17 ML/MIN
[2020-10-18 05:11] LABS: HEMATOCRIT 18.2 % (42.0-52.0); HEMOGLOBIN 5.8 g/dl (14.0-17.9)
[2020-10-18 05:26] LABS: PARTIAL THROMBOPLASTIN TIME 47 SECONDS (22-32)
--- NOTE | 2020-10-18 06:25 | NUR ---
Problems reprioritized. Patient report given, questions answered & plan of care reviewed with Madison HILL.
[2020-10-18] MEDS: dextrose 5%-1/4 normal saline 1,000 ML IV SCH (06:30)
--- NOTE | 2020-10-18 06:34 | NUR ---
Patient in room PCU 3023. I have received report from Barbie HILL and had the opportunity to ask questions and assume patient care.
[2020-10-18 07:00] VITALS: BP 80/54
[2020-10-18] MEDS: nystatin 15 GM powder TP SCH ×2 (08:00→20:00)
[2020-10-18] MEDS: ertapenem sod inj 1 GM in normal saline 100ml IV soln 100 ML IV SCH (08:00)
[2020-10-18] MEDS: lactobacillus rhamnosus 10,000 MMU CELLS/CAPSULE PO SCH ×2 (08:00→20:00)
[2020-10-18] MEDS ORDERED: morphine 10mg/ml inj. IV PRN (11:35)
[2020-10-18] MEDS ORDERED: morphine 10mg/0.5ml (conc. morphine) oral syringe PO PRN (11:35)
[2020-10-18] MEDS: LORazepam 2 mg/ml vial IV PRN (12:20)
[2020-10-18 13:46] LABS: WHITE BLOOD COUNT 27.1 X10'3 (4.5-11.0)
--- NOTE | 2020-10-18 15:32 | NUR ---
Noted pt has been made DNR w/ comfort care. Colostomy 150ml ouput past 24 hours. Will continue to monitor. Rec: 1. bowel care per rx Addendum: 10/18/20 at [address] Amended: Links added.
[2020-10-18] MEDS: morphine 2 MG/ML inj. syringe IV PRN ×3 (16:09→23:31)
[2020-10-18 18:00] VITALS: BP 73/46
--- NOTE | 2020-10-18 18:57 | NUR ---
Patient in room PCU 3022. I have received report from SERGIO Wallace and had the opportunity to ask questions and assume patient care.
[2020-10-18 21:52] VITALS: BP 79/44
[2020-10-19] MEDS: LORazepam 2 mg/ml vial IV PRN ×2 (02:44→19:23)
--- NOTE | 2020-10-19 06:42 | NUR ---
Problems reprioritized. Patient report given, questions answered & plan of care reviewed with SERGIO Rangel.
--- NOTE | 2020-10-19 07:02 | NUR ---
Patient in room PCU 3022. I have received report from SERGIO Contreras and had the opportunity to ask questions and assume patient care.
[2020-10-19 08:00] VITALS: BP 94/51
[2020-10-19] MEDS: lactobacillus rhamnosus 10,000 MMU CELLS/CAPSULE PO SCH (08:00)
[2020-10-19] MEDS: aspirin 81mg tablet.DR PO SCH (08:00)
[2020-10-19] MEDS: nystatin 15 GM powder TP SCH ×2 (08:00→20:00)
[2020-10-19] MEDS: morphine 2 MG/ML inj. syringe IV PRN ×3 (09:44→16:20)
[2020-10-19 18:00] VITALS: BP 83/50
--- NOTE | 2020-10-19 18:55 | NUR ---
Problems reprioritized. Patient report given, questions answered & plan of care reviewed with SERGIO Duran. Pt continue to be on comfort care. visitor at bedside throughout the shift.
[2020-10-19 21:31] VITALS: BP 83/50
[2020-10-20] MEDS: morphine 2 MG/ML inj. syringe IV PRN ×2 (03:58→16:02)
[2020-10-20 06:00] VITALS: BP 78/50
[2020-10-20] MEDS: LORazepam 2 mg/ml vial IV PRN ×2 (08:20→21:45)
[2020-10-20] MEDS: nystatin 15 GM powder TP SCH ×2 (08:21→21:46)
--- NOTE | 2020-10-20 12:47 | NUR ---
Called dietary to ask if they can send daughter meal trays, they will start sending them for lunch today.
--- NOTE | 2020-10-20 18:20 | NUR ---
Patient in room PCU 3022. I have received report from Estela HILL and had the opportunity to ask questions and assume patient care.
--- NOTE | 2020-10-20 18:28 | NUR ---
Problems reprioritized. Patient report given, questions answered & plan of care reviewed with Rosita HILL.
--- NOTE | 2020-10-21 01:30 | NUR ---
Problems reprioritized. Patient report given, questions answered & plan of care reviewed with Melina HILL.
--- NOTE | 2020-10-21 06:22 | NUR ---
Patient in room PCU 3022. I have received report from SERGIO Summers and had the opportunity to ask questions and assume patient care.
[2020-10-21 07:10] VITALS: BP 100/46
[2020-10-21] MEDS: nystatin 15 GM powder TP SCH ×2 (08:00→20:00)
[2020-10-21] MEDS: LORazepam 2 mg/ml vial IV PRN ×3 (08:33→23:02)
--- NOTE | 2020-10-21 08:47 | NUR ---
Patient daughter at bedside. Patient has blanket covered from chest down. Unable to complete physical assessment at the request of daughter for patient comfort. Ativan administered for patient comfort. Patient daughter very teary eyed and crying asking if other family members are able to see patient although she is aware only 2 visitors are permitted due to policy changes for covid. Offered patient to facetime her family members with patient and she stated she has been. However did reassure daughter that this RN will let charger operator know. cold saw operator Oksana asked and also stated it is only 2 person policy at this time.
[2020-10-21] MEDS: morphine 2 MG/ML inj. syringe IV PRN ×3 (09:57→23:02)
--- NOTE | 2020-10-21 12:45 | NUR ---
NG removed per order from Dr. Norman. Patient daughter and granddaughter at bedside. No needs at this time. Appears to be comfortable.
--- NOTE | 2020-10-21 16:44 | NUR ---
Problems reprioritized. Patient report given, questions answered & plan of care reviewed with SERGIO Avendano.
--- NOTE | 2020-10-21 16:45 | NUR ---
REPORT RECEIVED BY HANY HILL. PT LAYING ON BED WITH AN AIR MATRESS IN PLACE. PT DAUGHTER AT BEDSIDE. PT HAS A PRINGLE AND A SUPRAPUBIC . PT ON COMFORT MEASURES AT THIS TIME. WILL CONTINUE TO MONITOR
--- NOTE | 2020-10-21 18:35 | NUR ---
report given to megan jennings. pt laying on bed with daughter at bedside. pt in comfort care. looks stable and comfortable. all questions answered. transferred care
--- NOTE | 2020-10-21 22:19 | NUR ---
Patient in room PCU 3022. I have received report from Pati HILL and had the opportunity to ask questions and assume patient care.
--- NOTE | 2020-10-22 06:25 | NUR ---
Problems reprioritized. Patient report given, questions answered & plan of care reviewed with Pati HILL.
--- NOTE | 2020-10-22 07:00 | NUR ---
Care of patient assumed by this nurse. Patient resting comfortably with daughter at bedside. No sign of distress or discomfort. Will continue to monitor.
[2020-10-22] MEDS: nystatin 15 GM powder TP SCH ×2 (08:45→21:47)
[2020-10-22] MEDS: LORazepam 2 mg/ml vial IV PRN ×2 (11:36→21:51)
[2020-10-22] MEDS: morphine 2 MG/ML inj. syringe IV PRN ×3 (11:37→21:50)
[2020-10-22] MEDS ORDERED: magnesium Cl slow-release 64mg tablet PO PRN (19:15)
[2020-10-22] MEDS ORDERED: magnesium 4gm in 100ml NS 100 ML IV PRN (19:15)
[2020-10-22] MEDS ORDERED: potassium Cl 40MEQ/1/2NS 520ml 520 ML IV PRN (19:15)
[2020-10-22] MEDS ORDERED: temazepam 15mg capsule PO PRN (19:15)
[2020-10-22] MEDS ORDERED: potassium Cl 20 mEq SR tablet PO PRN ×2 (19:15)
[2020-10-23] MEDS: morphine 2 MG/ML inj. syringe IV PRN (03:41)
--- NOTE | 2020-10-23 05:43 | NUR ---
PAGER ID: [phone] MESSAGE: [phone] Anish Zacarias: Patient passed [phone]. Imelda HILL [phone]
--- NOTE | 2020-10-23 06:16 | NUR ---
Patient in room PCU 3022. I have received report from Pati HILL and had the opportunity to ask questions and assume patient care.
--- NOTE | 2020-10-23 06:16 | NUR ---
Problems reprioritized. Patient report given, questions answered & plan of care reviewed with Fina HILL.
--- NOTE | 2020-10-23 06:28 | NUR ---
[employer] Call back was done, network states he is not a candidate and may proceed with releasing the body.
--- NOTE | 2020-10-23 06:35 | NUR ---
Patient in room PCU 3022. I have received report from yamilka jennings and had the opportunity to ask questions and assume patient care.
[2020-10-23] MEDS: nystatin 15 GM powder TP SCH (08:00)
--- NOTE | 2020-10-23 08:25 | NUR ---
CALLED [facility] , LEFT MSG ON MACHINE RE: PT NEEDS TO BE PICKED UP. WAITING FOR CALL BACK.
--- NOTE | 2020-10-23 09:35 | NUR ---
PT Addendum: 10/23/20 at 0936 by Renate Cronin RN Amended: Links added.
--- NOTE | 2020-10-23 10:15 | NUR ---
SPOKE WITH ADEBAYO AND GIAN, WILL COME LOG SORTER PT
--- NOTE | 2020-10-23 10:21 | NUR ---
SPOKE WITH GRANDDAUGHTER MARIA LUISA, INFORMED HER THAT THERE WAS AN ISSUE GETTING [facility] TO COME PLUGGER WORKER PT D/T NO CERTIFICATE. INSTEAD WE ARE GOING TO HAVE [facility] TRANSPORT PT. THIS WAS OKd BY THE FAMILY, FAMILY STATES THEY WILL CALL [facility] AND SET UP CREMATION WITH THEM. CALLED [facility], LEFT MSG ON MACHINE RE: NO LONGER NEED THEIR SERVICES.
--- NOTE | 2020-10-23 12:07 | NUR ---
PT PICKED UP BY [facility]
== END 2020-10-23 12:08 | disposition expired | DRG 853 ==
LOC: ER 18:54 → ED HOLD 22:16 → ICU 2S 09-02 00:23 → PCU 3S 10-03 17:45
PROVIDERS: ADMIT Family Medicine; ATTEND Internal Medicine
PROC: 5A1955Z Respiratory Ventilation, Greater than 96 Consecutive Hours (ICD-10-PCS; 2020-09-01)
PROC: 0HBAXZZ Excision of Inguinal Skin, External Approach (ICD-10-PCS; 2020-09-01)
PROC: 0D1B0Z4 Bypass Ileum to Cutaneous, Open Approach (ICD-10-PCS; principal; 2020-09-01 22:46)
PROC: 0JBB0ZZ Excision of Perineum Subcutaneous Tissue and Fascia, Open Approach (ICD-10-PCS; 2020-09-01 22:46)
PROC: 0DBB0ZZ Excision of Ileum, Open Approach (ICD-10-PCS; 2020-09-16)
PROC: 0D1N0Z4 Bypass Sigmoid Colon to Cutaneous, Open Approach (ICD-10-PCS; 2020-09-16)
PROC: BT1F1ZZ Fluoroscopy of Left Kidney, Ureter and Bladder using Low Osmolar Contrast (ICD-10-PCS; 2020-09-26)
PROC: 0T788DZ Dilation of Bilateral Ureters with Intraluminal Device, Via Natural or Artificial Opening Endoscopic (ICD-10-PCS; 2020-09-26)
PROC: 0T9B30Z Drainage of Bladder with Drainage Device, Percutaneous Approach (ICD-10-PCS; 2020-10-06)
DX: A41.51 Sepsis due to Escherichia coli [E. coli] (principal); R65.21 Severe sepsis with septic shock; M72.6 Necrotizing fasciitis; J96.00 Acute respiratory failure, unspecified whether with hypoxia or hypercapnia; N17.9 Acute kidney failure, unspecified; E87.2 Acidosis; D62 Acute posthemorrhagic anemia; J90 Pleural effusion, not elsewhere classified; J98.11 Atelectasis; K56.609 Unspecified intestinal obstruction, unspecified as to partial versus complete obstruction; N13.2 Hydronephrosis with renal and ureteral calculous obstruction; L03.314 Cellulitis of groin; R64 Cachexia; G93.40 Encephalopathy, unspecified; I12.9 Hypertensive chronic kidney disease with stage 1 through stage 4 chronic kidney disease, or unspecified chronic kidney disease; D69.6 Thrombocytopenia, unspecified; H91.90 Unspecified hearing loss, unspecified ear; Z43.2 Encounter for attention to ileostomy; N49.3 Fournier gangrene; E87.6 Hypokalemia; Z20.822 Contact with and (suspected) exposure to COVID-19
CPT/HCPCS: 36415; 36430; 36558; 36573; 36600; 71045; 74018; 74176; 76000; 76870; 76937; 80048; 80053; 80069; 80202; 81001; 82140; 82330; 82803; 82948; 83036; 83605; 83735; 84100; 84132; 84134; 84145; 84443; 84478; 84560; 85007; 85008; 85018; 85025; 85027; 85384; 85610; 85651; 85730; 86140; 86703; 86706; 86885; 86900; 86901; 86920; 87040; 87070; 87075; 87076; 87077; 87081; 87088; 87102; 87185; 87186; 87324; 87340; 87449; 87635; 88304; 88305; 88307; 90935; 92508; 92616; 93005; 93976; 94002; 94003; 94640; 94760; 94799; 96374; 96375; 97110; 97162; 97530; 99285; A4215; A4338; A4421; A4618; A4649; A6253; A6258; A6407; A6446; A6449; A7000; C1758; C1769; C2617; C9113; C9399; G0378; J0610; J0690; J1100; J1170; J1265; J1335; J1450; J1644; J1650; J1720; J1815; J1940; J2001; J2060; J2150; J2250; J2270; J2370; J2405; J2543; J2704; J2997; J3010; J3370; J3475; J3480; J3490; J7030; J7040; J7050; J7060; J7120; J7131; P9016; P9047; Q4081; Q9963; Q9967